=== PATIENT | male | born 1945 | race Hispanic/Latino ===

== ENCOUNTER 2018-02-08 13:12 | Inpatient (IN) | payer OTHER ==
[2018-02-08] MEDS ORDERED: GLUCAGON 1 MG/VIAL IM PRN (14:16)
[2018-02-08] MEDS ORDERED: D50W 25 GM/50 ML SYRINGE IV PRN (14:16)
[2018-02-08] MEDS ORDERED: FUROSEMIDE 40 MG/4 ML VIAL IV ONE (14:16)
[2018-02-08] MEDS ORDERED: GUAIFENESIN/DM 5 ML UCUP PO PRN (14:17)
[2018-02-08] MEDS ORDERED: ACETAMINOPHEN 500 MG TAB PO PRN (14:17)
[2018-02-08 14:33] LABS: Urine Appearance CLEAR; Urine Bilirubin NEGATIVE (NEG); Urine Blood NEGATIVE (NEG); Urine Color YELLOW; Urine Glucose TRACE (NEG); Urine Protein TRACE (NEG); Urine Specific Gravity 1.015 (1.005-1.030); Urine pH 5.5 (5.0-7.0)
[2018-02-08 14:37] LABS: Urine Microscopic Reflex ORDER UMIC
[2018-02-08 14:50] LABS: Urine Amorphous Sediment 1+ /HPF (NONE SEEN); Urine Bacteria NONE SEEN /HPF (NONE SEEN); Urine Culture Reflex Order NOT NEEDED; Urine RBC NONE SEEN /HPF (NONE SEEN)
[2018-02-08 15:08] LABS: Urine Appearance CLEAR; Urine Bilirubin NEGATIVE (NEG); Urine Blood NEGATIVE (NEG); Urine Color YELLOW; Urine Glucose TRACE (NEG); Urine Protein TRACE (NEG); Urine Specific Gravity 1.015 (1.005-1.030); Urine pH 5.5 (5.0-7.0)
--- NOTE | 2018-02-08 15:08 | RAD REPORT ---
EXAM DESCRIPTION: RAD - Chest Pa And Lat (2 Views) - 02/08/2018 2:53 pm CLINICAL HISTORY: CHF, pneumonia COMPARISON: Chest exam October 02, 2017; CT chest September 2017 TECHNIQUE: PA and lateral views of the chest were obtained. FINDINGS: The lungs are normal volume. Patient has a pronounced cardiomegaly, increased over the dory or study. Upper lobe vasculature is still within normal limits. Sternotomy wires are in place with mi dline trachea. Patient has a baseline of chronic interstitial lung disease. Interstitial and alveolar opacities are scattered throughout much of the right lung field. This is new or more pronounced than prior imaging. Pneumonia is favored over asymmetric CHF. No pleural effusion or pneumothorax seen. No acute bony finding noted. No aortic abnormality. IMPRESSION: Patchy pneumonia changes in the right mid and upper lung field. Prominent cardiomegaly, increased over October 2017. No vascular engorgement or other findings of si gnificant failure.
[2018-02-08 15:30] LABS: Urine Microscopic Reflex ORDER UMIC
[2018-02-08 15:32] LABS: Urine Bacteria NONE SEEN /HPF (NONE SEEN); Urine Culture Reflex Order NOT NEEDED; Urine RBC <5 /HPF (NONE SEEN)
[2018-02-08 16:10] LABS: Absolute Monocytes 0.5 K/uL (0.1-1.3); Absolute Neutrophil 6.1 K/uL (1.8-8.0); Basophils % 0.3 % (0-1.3); Hematocrit 33.3 % (39.6-49.0); Lymphocytes % 12.5 % (15.3-44.8); MCH 30.7 pg (27.0-35.0); MCV 90.1 fL (80-100); MPV 10.1 fL (7.6-11.3); Monocytes % 6.3 % (3.3-12.3); RBC Red Blood Cell Count 3.69 M/uL (4.33-5.43)
[2018-02-08] MEDS: ALBUTEROL 2.5 MG/3 ML NEB SOL NEB SCH ×2 (16:22→19:39)
[2018-02-08 16:25] LABS: Potassium 3.8 mEq/L (3.6-5.0)
[2018-02-08 16:29] LABS: Albumin 3.2 g/dL (3.2-5.5); Bilirubin Total 0.8 mg/dL (0.3-1.2); Magnesium 1.8 mg/dL (1.8-2.5); Protein, Total 6.8 g/dL (6.0-8.3)
[2018-02-08] MEDS: INSULIN -REGULAR HUMAN 50 UNIT/0.5 ML ML SQ SCH ×2 (16:30→21:00)
--- NOTE | 2018-02-08 16:33 | ECHO ---
HEIGHT: 5 ft 10 in WEIGHT: 233 lb 0 oz DATE OF STUDY: 02/08/[address]: Emilio Thayer MD 2-DIMENSIONAL: YES M.MODE: YES DOPPLER: YES COLOR FLOW: YES TDS: PORTABLE: DEFINITY: BUBBLE STUDY: DIAGNOSIS: CONGESTIVE HEART FAILURE CARDIAC HISTORY: CATHERIZATION: YES SURGERY: YES PROSTHETIC VALVE: NO PACEMAKER: NO MEASUREMENTS (cm) DIASTOLIC (NORMALS) SYSTOLIC (NORMALS) IVSd 1.1 (0.6-1.2) LA Diam 4.7 (1.9-4.0) LVEF 29% LVIDd 5.1 (3.5-5.7) LVIDs 4.4 (2.0-3.5) %FS 14% LVPWd 1.2 (0.6-1.2) Ao Diam 3.2 (2.0-3.7) 2 DIMENSIONAL ASSESSMENT: RIGHT ATRIUM: NORMAL LEFT ATRIUM: DILATED RIGHT VENTRICLE: NORMAL LEFT VENTRICLE: DILATED TRICUSPID VALVE: NORMAL MITRAL VALVE: NORMAL PULMONIC VALVE: NORMAL AORTIC VALVE: NORMAL PERICARDIAL EFFUSION: NONE AORTIC ROOT: NORMAL LEFT VENTRICULAR WALL MOTION: GLOBAL HYPOKINESIS DOPPLER/COLOR FLOW: IMPAIRED LEFT VENTRICULAR RELAXATION COMMENTS: DILATED LEFT ATRIUM AND LEFT VENTRICLE WITH SEVERELY DEPRESSED LEFT VENTRICULAR EJECTION FRACTION. IMPAIRED LEFT VENTRICULAR RELAXATION. TECHNOLOGIST: ESTRADA STODDARD
[2018-02-08 16:42] LABS: A1c Component 0.78 mg/dL; Hemoglobin A1c 8.2 % (4-6.0)
[2018-02-08 17:03] LABS: Thyroid Stimulating Hormone 2.04 uIU/mL (0.34-5.60)
[2018-02-08] MEDS: PIPER/TAZO/NS 3.375gm 3.375 GM/100 ML BAG IVPB SCH (17:19)
[2018-02-08] MEDS: ENOXAPARIN 30 MG/0.3 ML SQ SCH (17:19)
--- NOTE | 2018-02-08 20:17 | EKG ---
Test Date: 2018-02-08 Test Time: 17:22:44 First Aid Instructor: JOANIE MEASUREMENT RESULTS: Intervals: Rate: 84 AL: 158 QRSD: 98 QT: 344 QTc: 406 Moore: P: 70 AL: 158 QRS: 3 T: -35 INTERPRETIVE STATEMENTS: Sinus rhythm with premature atrial complexes Low voltage QRS Nonspecific T wave abnormality Anterior infarct Abnormal ECG Compared to ECG 09/29/2017 15:19:10 Atrial premature complex(es) now present T-wave abnormality now present Prolonged QT interval no longer present Electronically Signed On 02-08-18 20:17:01 CDT by Elkin Devi
[2018-02-08] MEDS: ASPIRIN 81 MG CHEWABLE TABLET PO SCH (20:25)
[2018-02-08] MEDS: MAGNESIUM OXIDE 400 MG TAB PO SCH (20:26)
[2018-02-08] MEDS: GABAPENTIN 100 MG CAP PO SCH (20:26)
[2018-02-08] MEDS: SACUBITRIL/VALSARTAN 24/26 MG TAB PO SCH (20:27)
[2018-02-08] MEDS: FUROSEMIDE 40 MG TABLET PO SCH (20:27)
[2018-02-08] MEDS: METOPROLOL TAR 25 MG TAB PO SCH (20:28)
[2018-02-08] MEDS ORDERED: MAGNESIUM SULFATE 1 gm IVPB 1 GM/100 ML BAG IV ONE (21:00)
[2018-02-08] MEDS ORDERED: POTASSIUM CL SA 10 MEQ TAB PO ONE (21:00)
--- NOTE | 2018-02-08 21:29 | CON ---
Chief Complaint: Dyspnea. Reason For Cardiology Consult: CAD and congestive heart failure. History Of Present Illness: Mr. Carlson is a gentleman, who has had bypass surgery remotely. More recently, he has had a stent put in his LAD artery. Later, the stent totally closed. At his last h eart catheterization, I had the impression that he would never be able to undergo another cardiac cat h again. The nature of his CAD was too diffuse and severe and microvascular. His last cardiac cath was in September 2017. He has underlying diabetes, hypertension, obesity, history of smoking, dyslipi demia. He no longer smokes. He has mild renal insufficiency. Allergies: HE IS ALLERGIC TO CHOCOLATE FLAVORINGS, PEACHES, AND TOMATOES. NO MEDICINES. Outpatient Medications: Aspirin 81, fish oil, Lipitor, gabapentin, metoprolol, vitamin D3, spironola ctone, magnesium oxide, furosemide, Entresto, insulin, several different forms of sliding scales. Physical Examination: Vital Signs: 5 feet 10 inches, 233 pounds. HEENT: Normal. Lungs: Clear. Heart: Reveals regular rate and rhythm. There is a 1/6 to 2/6 holosystolic murmur. There is an S3 gallop. Abdomen: Soft. Extremities: Mild edema. Skin: Atrophic, poorly perfused. No ulcers are seen. Distal pulses are absent. Diagnostic Data: An electrocardiogram has not been done. An echocardiogram reveals his ejection fra ction is in the 20s. There is global hypokinesis. Impression: Mr. Carlson seems to have pneumonia on his chest x-ray. There are patchy infiltrates. He has had a white blood cell count elevation, fevers, and chills at home. Dr. Thayer is treating hi m with piperacillin and tazobactam. I think we should continue his Entresto, Lipitor, and other outp atient medications. I do not have any specific plans for Mr. Carlson to revamp all of his medicati ons. In the past, we had discussed about him getting a defibrillator. With his ejection fraction co nsistently being very low, he has a has met all the criteria, so we will talk about it again. In the past, he has not been willing to have a defibrillator implant. Thank you very much for your kind referral of Mr. Carlson. I will follow him with you. CARMITA/BRII Voice ID: [id number] Report ID: [id number]
[2018-02-09] MEDS: PIPER/TAZO/NS 3.375gm 3.375 GM/100 ML BAG IVPB SCH ×3 (01:03→17:50)
[2018-02-09] MEDS: ALBUTEROL 2.5 MG/3 ML NEB SOL NEB SCH ×4 (01:44→19:53)
[2018-02-09 05:15] LABS: Magnesium 1.9 mg/dL (1.8-2.5); Potassium 4.4 mEq/L (3.6-5.0)
--- NOTE | 2018-02-09 07:19 | HP ---
Date of Admission: 02/08/2018 Chief Complaint: Shortness of breath. History Of Present Illness: A 72-year-old male patient, who came into office today with his daughter complaining of shortness of breath, fever, and cough. The patient was concerned about having pneumo lucie as he had pneumonia in the past. He also has congestive heart failure, says he takes his medicat ion regularly, uses home oxygen almost all the time, but as of last 2 days, he got sick with this fev er and sweating. Denies any expectoration. Having shortness of breath with any day-to-day activitie s, using oxygen helps his shortness of breath. Denies any vomiting or diarrhea. No paroxysmal noctu rnal dyspnea or orthopnea. He does not drink more than 24 ounces of water in 24 hours and does not d rink any other liquids besides water. After he was evaluated, decision was made to admit him to the hospital from the office. Allergies: NO KNOWN ALLERGIES. Medications: Aspirin 81 mg 2 tablets p.o. daily, atorvastatin 20 mg daily, Entresto 1 tablet 2 times a day and I believe it is 49 mg/51 mg, furosemide 40 mg 1 tablet 2 times a day, gabapentin 100 mg tw ice a day, Humulin R U-500, takes 70 units 2 times a day, this is being managed by Dr. Tierney, magne sium oxide 400 mg 2 times a day, metoprolol 50 mg 2 times a day, pantoprazole 40 mg daily, spironolac tone 25 mg daily, and vitamin D3 1000 units p.o. 2 times a day. Review of Systems: Respiratory: As mentioned above. Constitutional: As mentioned above. All other systems reviewed and negative. Past Medical History: Mixed hyperlipidemia, type 2 diabetes mellitus, coronary artery disease, hyper tension, chronic systolic congestive heart failure, hypomagnesemia, and anemia in chronic kidney dise ase. Past Surgical History: Cataract surgery in 2012, left leg surgery, cholecystectomy November 2016, cor onary artery angioplasty with stent placement May 21, 2015, and coronary artery bypass surgery in past. Family History: Significant for diabetes, myocardial infarction, and hypertension. Social History: Prior history of smoking, not at present time. Use of alcohol negative. Physical Examination: Vital Signs: When he came into office, weight 235 pounds, blood pressure 128/60, pulse 87, respirato ry rate 18, temperature 98.2, and pulse ox 92% on room air. General: Awake, alert, oriented, not in distress. HEENT: Head atraumatic, normocephalic. Conjunctivae nonerythematous. Sclerae white. Mouth, no thr ush or edema noted. Ears/Nose, no mass, lesion, discharge noted. Neck: Supple. No JVD, lymph nodes, bruit, thyromegaly noted. Lungs: Bilateral rales noted in both lung lawrence in lower half to lower two-third, not using any acc essory muscles of respiration. Heart: Normal heart sounds, no murmur or gallop. Abdomen: Soft, bowel sounds normal. No guarding, rigidity, tenderness, mass, hepatosplenomegaly, dis tention, or bruit noted. Extremities: Bilateral grade 2 pedal edema. Skin: No rash, ulcer, cellulitis. Lymphatics: No lymph node enlargement in neck, supraclavicular, infraclavicular region. Neuro: No focal neurological deficit. Chest: Unremarkable. External Genitalia: Deferred. Rectal: Deferred. Laboratory Data: White count 7.6, hemoglobin 11.4, platelets 220, sodium 136, potassium 3.8, chlorid e 102, bicarb 28, BUN 21, creatinine 1.29, glucose 120, hemoglobin A1c 8.2, and magnesium 1.8. Liver function tests are unremarkable. BNP 668. Procalcitonin less than 0.05. TSH 2.04. Urinalysis neg ative. Diagnostic Data: Echocardiogram shows ejection fraction 29%. Chest x-ray, the chest x-ray shows pat shreya pneumonia changes in the right mid and upper lung lawrence. Cardiomegaly. Impression: 1.Pneumonia. 2.Congestive heart failure, chronic, systolic, with acute exacerbation. 3.Chronic kidney disease, stage 3. 4.Coronary artery disease. 5.Diabetes mellitus, type 2, uncontrolled. 6.Hypertension. 7.Mixed hyperlipidemia. 8.Anemia, unspecified. 9.Hypomagnesemia. 10.Anemia in chronic kidney disease. Plan: Admit the patient to hospital for further evaluation and management of this problem. The maryanne ent is appropriate for inpatient and is expected to spend 2 midnights in the hospital. We will go ah ead and consult Cardiology. Continue home medications per order. Diabetes will be managed with slid ing scale insulin. We will go ahead and start empiric antibiotic, which is Zosyn. IV Lasix will be started. DVT prophylaxis will be given using Lovenox, and I will see him tomorrow morning for follow up. Details and plan of treatment discussed with the patient. The patient had a cardiac cath done d uring last hospital admission, September 2017 and at that time, the patient was noted to have signific ant coronary artery disease and environmental department manager had recommended medical management as the patient was de termined not a candidate for any kind of vascular intervention. We will see him tomorrow for followu leelee REICH/BRII Voice ID: [id number]
[2018-02-09] MEDS: INSULIN -REGULAR HUMAN 50 UNIT/0.5 ML ML SQ SCH ×4 (07:30→21:00)
[2018-02-09] MEDS ORDERED: FUROSEMIDE 40 MG/4 ML VIAL IV SCH (09:00)
[2018-02-09] MEDS: SACUBITRIL/VALSARTAN 24/26 MG TAB PO SCH ×2 (09:00→20:25)
[2018-02-09] MEDS: GABAPENTIN 100 MG CAP PO SCH ×2 (10:29→20:24)
[2018-02-09] MEDS: MAGNESIUM OXIDE 400 MG TAB PO SCH ×2 (10:30→20:26)
[2018-02-09] MEDS: SPIRONOLACTONE 25 MG TABLET PO SCH (10:30)
[2018-02-09] MEDS: ASPIRIN 81 MG CHEWABLE TABLET PO SCH ×2 (10:30→20:25)
[2018-02-09] MEDS: METOPROLOL TAR 25 MG TAB PO SCH ×2 (10:30→20:25)
[2018-02-09] MEDS: FUROSEMIDE 40 MG TABLET PO SCH ×2 (10:30→20:24)
[2018-02-09] MEDS ORDERED: NA CHLORIDE 0.9% 250 ML ONE (10:34)
[2018-02-09] MEDS: ENOXAPARIN 30 MG/0.3 ML SQ SCH (17:50)
[2018-02-09] MEDS ORDERED: D50W 25 GM/50 ML SYRINGE IV PRN (18:51)
[2018-02-09] MEDS ORDERED: GLUCAGON 1 MG/VIAL IM PRN (18:51)
[2018-02-09] MEDS ORDERED: INSULIN DETEMIR 100 UNIT/1 ML INSULIN SQ SCH (21:00)
[2018-02-10] MEDS: PIPER/TAZO/NS 3.375gm 3.375 GM/100 ML BAG IVPB SCH ×3 (00:26→16:18)
--- NOTE | 2018-02-10 00:32 | PN ---
Date of Progress Note: 02/09/2018 Subjective: The patient was seen this morning for followup. He is feeling somewhat better this morn ing compared to yesterday. Objective: Vital Signs: Reviewed. HEENT: Examination unremarkable. Lungs: Bilateral good equal air entry. Presence of rales in both lung lawrence but better today than yesterday. Not using accessory muscles of respiration. Heart: Sounds normal. Abdomen: Soft. Bowel sounds normal. No guarding, rigidity, tenderness, or distention. Extremities: Bilateral leg edema unchanged from yesterday. Laboratory Data: Sodium 137, potassium 4.4, chloride 102, bicarb 29. BUN 24, creatinine 1.73. Gluc ose 123, magnesium 1.9. Impression: 1.Pneumonia. 2.Congestive heart failure, chronic, systolic, with acute exacerbation. 3.Coronary artery disease. 4.Chronic kidney disease stage 3. 5.Diabetes mellitus. Plan: We will continue current medications. Continue Lasix, Entresto, spironolactone, Zosyn. Ruth nue to monitor electrolytes and renal function. Ambulation was encouraged. I will see him tomorrow for followup. We will repeat chest x-ray tomorrow. I did discuss details with Dr. Devi, and consi dering the patient's low ejection fraction, he will refer the patient to Dr. Mckeon, electrophysiologi , on outpatient basis for consideration of AICD placement. I will see him tomorrow for followup. RACHANA/MODL Voice ID: [id number] Report ID: [id number]
[2018-02-10] MEDS: ALBUTEROL 2.5 MG/3 ML NEB SOL NEB SCH ×4 (01:05→19:58)
--- NOTE | 2018-02-10 02:21 | PN ---
Date of Progress Note: 02/09/2018 Mr. Carlson was admitted by Dr. Thayer for pneumonia. He was noted on echocardiography to have an ej ection of 20%, which is much worse for him than the past. September 2017 heart catheterization showed severe diffuse distal disease. No intervention. Not a good candidate for another catheterization, but may be a good candidate for defibrillator if he maintains that ejection fraction. I am hoping th at once his pneumonia is cleared, maybe his EF will improve. He can certainly go home whenever it is okay with Dr. Thayer, but I would like to see him in the office in the next 2 weeks. I will repeat ec hos eventually and see what we can do as far as the defibrillator is concerned. JODI/BRII Voice ID: [id number] Report ID: [id number]
[2018-02-10] MEDS: INSULIN -REGULAR HUMAN 50 UNIT/0.5 ML ML SQ SCH ×4 (07:30→20:57)
[2018-02-10] MEDS: SPIRONOLACTONE 25 MG TABLET PO SCH (08:49)
[2018-02-10] MEDS: METOPROLOL TAR 25 MG TAB PO SCH ×2 (08:50→20:55)
[2018-02-10] MEDS: FUROSEMIDE 40 MG TABLET PO SCH ×2 (08:50→20:55)
[2018-02-10] MEDS: ASPIRIN 81 MG CHEWABLE TABLET PO SCH ×2 (08:50→20:54)
[2018-02-10] MEDS: SACUBITRIL/VALSARTAN 24/26 MG TAB PO SCH ×2 (08:50→20:56)
[2018-02-10] MEDS: GABAPENTIN 100 MG CAP PO SCH ×2 (08:51→20:55)
[2018-02-10] MEDS: MAGNESIUM OXIDE 400 MG TAB PO SCH ×2 (08:51→20:54)
--- NOTE | 2018-02-10 10:18 | RAD REPORT ---
EXAM DESCRIPTION: RAD - Chest Pa And Lat (2 Views) - 02/10/2018 9:26 am CLINICAL HISTORY: Pneumonia, CHF. COMPARISON: 02/08/2018 FINDINGS: Little overall change is seen in the reticular opacities in the right lung most likely rep resenting atypical pneumonia. The heart is moderately enlarged in size. No displaced fractures. Amos otomy wires present. IMPRESSION: Stable chest since 02/08/2018.
[2018-02-10] MEDS: ENOXAPARIN 30 MG/0.3 ML SQ SCH (16:18)
[2018-02-11] MEDS: PIPER/TAZO/NS 3.375gm 3.375 GM/100 ML BAG IVPB SCH ×3 (00:37→16:46)
--- NOTE | 2018-02-11 01:22 | PN ---
Date of Progress Note: 02/10/2018 Subjective: The patient was seen this morning for followup. He was sitting at bedside. His enae r was present with him at bedside. Denied any complaints. He ambulates well in the room. Objective: Vital Signs: Reviewed. HEENT: Examination unremarkable. Lungs: Bilateral good equal air entry. Not in any respiratory distress. Presence of minimum rales in both lung lawrence. Overall much better than before. Heart: Sounds normal. Abdomen: Bowel sounds normal. No guarding, rigidity, tenderness, or distention. Extremities: Bilateral leg edema, better than yesterday and day before yesterday. Laboratory Data: Reviewed. Impression: 1.Congestive heart failure, chronic, systolic, with acute exacerbation. 2.Coronary artery disease. 3.Hypertension. 4.Diabetes mellitus. 5.Chronic kidney disease stage 3. 6.Pneumonia. Plan: We will go ahead and continue current antibiotics. Continue Lasix and other current managemen t for congestive heart failure problem. We will repeat chest x-ray today. I did inform the patient and patient's daughter both that I am not 100% convinced that he has pneumonia but we cannot afford n ot to treat him for pneumonia with antibiotics, given his condition and situation, so we are going to continue antibiotics at this point. It is possible that what we see on chest x-ray, could be all du e to congestive heart failure, but in any case, we will continue antibiotics right now and starting t omorrow, consider to change it to oral antibiotics, depending on the chest x-ray result. I also talk ed to both of them about AICD placement. Upon discharge from the hospital, the patient will follow u p with welt rander, and welt rander will refer him to [place] for consideration of AICD placement. All these details were discussed with the patient and the patient's daughter. They were also made a garvey of echocardiogram finding with worsening ejection fraction. I will see him tomorrow for followu p. Depending on his condition, we will decide whether he is ready for discharge by tomorrow or not. RACHANA/MODL Voice ID: [id number] Report ID: [id number]
[2018-02-11] MEDS: ALBUTEROL 2.5 MG/3 ML NEB SOL NEB SCH ×4 (01:34→19:18)
[2018-02-11 05:52] VITALS: BMI 32.5
[2018-02-11] MEDS: INSULIN -REGULAR HUMAN 50 UNIT/0.5 ML ML SQ SCH ×4 (07:30→21:00)
[2018-02-11 07:31] LABS: Absolute Lymphocytes (CBC) 0.7 K/uL (0.7-4.9); Absolute Monocytes 0.4 K/uL (0.1-1.3); Absolute Neutrophil 5.1 K/uL (1.8-8.0); Basophils % 0.4 % (0-1.3); Eosinophils % 3.9 % (0-4.4); Hematocrit 35.2 % (39.6-49.0); Lymphocytes % 11.2 % (15.3-44.8); MCH 30.7 pg (27.0-35.0); MCV 90.1 fL (80-100); MPV 9.7 fL (7.6-11.3); RBC Red Blood Cell Count 3.91 M/uL (4.33-5.43)
[2018-02-11 07:42] LABS: Potassium 4.4 mEq/L (3.6-5.0)
[2018-02-11 07:43] LABS: Magnesium 2.1 mg/dL (1.8-2.5)
[2018-02-11] MEDS: MAGNESIUM OXIDE 400 MG TAB PO SCH ×2 (08:32→21:09)
[2018-02-11] MEDS: GABAPENTIN 100 MG CAP PO SCH ×2 (08:32→21:09)
[2018-02-11] MEDS: ASPIRIN 81 MG CHEWABLE TABLET PO SCH ×2 (08:32→21:11)
[2018-02-11] MEDS: SPIRONOLACTONE 25 MG TABLET PO SCH (08:33)
[2018-02-11] MEDS: SACUBITRIL/VALSARTAN 24/26 MG TAB PO SCH ×2 (08:33→21:13)
[2018-02-11] MEDS: FUROSEMIDE 40 MG TABLET PO SCH ×2 (08:34→21:10)
[2018-02-11] MEDS: METOPROLOL TAR 25 MG TAB PO SCH ×2 (08:34→21:09)
[2018-02-11] MEDS: Levofloxacin500mg IV 500 MG/100 ML BAG IV SCH (08:34)
[2018-02-11] MEDS: ENOXAPARIN 30 MG/0.3 ML SQ SCH (16:47)
[2018-02-12] MEDS: PIPER/TAZO/NS 3.375gm 3.375 GM/100 ML BAG IVPB SCH ×3 (00:42→11:00)
[2018-02-12] MEDS: ALBUTEROL 2.5 MG/3 ML NEB SOL NEB SCH ×3 (01:05→13:23)
--- NOTE | 2018-02-12 01:50 | PN ---
Date of Progress Note: 02/11/2018 Subjective: The patient was seen this morning for followup. He was sitting at bedside. The patient 's daughter was present with him at bedside. He denies any complaints. Objective: Vital Signs: Reviewed. HEENT: Unremarkable. Lungs: Bilateral good equal air entry. Minimum rales noted in right lung lawrence, overall much corky r than before. Not in any respiratory distress. Heart: Sounds normal. Abdomen: Soft, bowel sounds normal. No guarding, rigidity, tenderness, or distention. Extremities: Bilateral trace leg edema. Overall much better than before. Laboratory Data: Reviewed. Impression: 1.Pneumonia. 2.Congestive heart failure, chronic, systolic, with acute exacerbation. 3.Chronic kidney disease, stage 3. 4.Hypertension. 5.Diabetes mellitus. Plan: Continue current medications. We will add antibiotic Levaquin and continue Zosyn. Continue I V Lasix. Continue Entresto. I will see him tomorrow for followup. Possible discharge to go home to [place] depending on patient's condition. Details and plan of treatment discussed with him. RACHANA/MODL Voice ID: [id number] Report ID: [id number]
[2018-02-12] MEDS: INSULIN -REGULAR HUMAN 50 UNIT/0.5 ML ML SQ SCH ×2 (07:30→11:30)
[2018-02-12] MEDS: Levofloxacin500mg IV 500 MG/100 ML BAG IV SCH ×2 (08:00→11:00)
[2018-02-12 08:18] VITALS: O2SAT 98
[2018-02-12] MEDS: SPIRONOLACTONE 25 MG TABLET PO SCH (09:00)
[2018-02-12] MEDS: FUROSEMIDE 40 MG TABLET PO SCH (09:00)
[2018-02-12] MEDS: METOPROLOL TAR 25 MG TAB PO SCH (09:00)
[2018-02-12] MEDS: MAGNESIUM OXIDE 400 MG TAB PO SCH (10:19)
[2018-02-12] MEDS: ASPIRIN 81 MG CHEWABLE TABLET PO SCH (10:19)
[2018-02-12] MEDS: SACUBITRIL/VALSARTAN 24/26 MG TAB PO SCH (10:19)
[2018-02-12] MEDS: GABAPENTIN 100 MG CAP PO SCH (10:20)
[2018-02-12] MEDS ORDERED: RIVAROXABAN 15 MG TABLET PO ONE (11:47)
[2018-02-12 12:16] VITALS: BP 114/57; TEMP 98.6
--- NOTE | 2018-02-13 04:56 | DS ---
Date of Discharge: 02/12/2018 Disposition: Discharged to go home physical. Physical Examination: HEENT: Examination unremarkable. Lungs: Clear to auscultation. No rhonchi. No rales. Heart: Sounds normal. Abdomen: Soft, bowel sounds normal. No guarding, rigidity, tenderness, or distention. Extremity: Very trace leg edema. Laboratory Data: White count upon admission was 7.6, hemoglobin 11.4, platelets 220. Last white count yesterday 6.6, hemoglobin 12, platelets 269. Last chemistry yesterday; sodium 135, potassium 4.4, chloride 97, bicarb 29. BUN 25, creatinine 1.51. Glucose 98, magnesium 2.1. Upon admission, sodium 136, potassium 3.8, chloride 102, bicarb 28. BUN 21, creatinine 1.29, glucose 120. Liver function tests unremarkable. Hemoglobin A1c 8.2. TSH 2.04. His procalcitonin less than 0.05 on admission. Yesterday, it was 0.06. Echocardiogram done during this hospitalization shows ejection fraction 29%. Chest x-ray showing pneumonia. Hospital Course: A 72-year-old male patient, who came into office with complaints of shortness of breath. Please see dictated H and P for more information. The patient was evaluated at the office, was admitted to the hospital with concerns about pneumonia and congestive heart failure problem. He was given antibiotics Zosyn, IV Lasix. Cardiology consultation was obtained. Echocardiogram shows low ejection fraction, in fact it is worse compared to what it was in August 2017. He responded well to diuretic therapy which was Lasix and his symptoms improved. He does have home oxygen that he uses. I have advised him to use oxygen definitely at nighttime and p.r.n. during daytime. He has a pulse oximeter at home. He monitors and he was advised to continue to monitor it and he was told that if during daytime, his oxygen saturation is in the low 90s like 91-92% or low, he should definitely use oxygen even though he may be feeling okay at that time. He should definitely use oxygen at nighttime. The patient might be appropriate candidate for AICD placement and Dr. Devi and Dr. Licea, legal associate, they will refer him to Dr. Mckeon on outpatient basis for further evaluation and management of this AICD placement. His repeat chest x-ray from day before yesterday did not show any significant improvement in the pneumonia, so we decided to add Levaquin 500 mg IV daily. He has received that. We will continue Levaquin upon discharge. Symptomatically, he is doing much better. He is ambulating well. Shortness of breath has improved. Today, prior to discharge, he actually had a short episode of atrial fibrillation. He was asymptomatic, hemodynamically stable. Details were discussed with Dr. Licea, and per my discussion with him, we will start him on Xarelto 15 mg p.o. daily. First dose will be given today before discharge and prescription will be called in by nursing staff per my request, and patient will see Dr. Licea next week on Thursday at 1 p.m. and he will see me the week after next for a followup. Discharge Medications: 1. Continue all prior home medications except change furosemide 40 mg take 2 tablets by mouth in the morning, 1 tablet by mouth in the afternoon. 2. Take levofloxacin 500 mg p.o. daily for 10 days. 3. Xarelto 15 mg p.o. daily. Discharge Plan: The patient and patient's daughter both were told about overall prognosis is poor and details about congestive heart failure with low ejection fraction, his chronic kidney disease, and reason for worsening of chronic kidney disease, due congestive heart failure as well as diuretic medication. All those details were discussed with her. The patient was also told that if his leg swelling or shortness of breath problems get any worse, then he should increase the dose of diuretic medication furosemide 40 mg to take 2 tablets in the morning and 2 tablets in the afternoon, and he verbalized understanding. Discharge Diagnoses: 1. Pneumonia. 2. Congestive heart failure, chronic, systolic, with acute exacerbation. 3. Chronic kidney disease, stage 3. 4. Coronary artery disease. 5. Diabetes mellitus, type 2, uncontrolled. 6. Hypertension. 7. Mixed hyperlipidemia. 8. Atrial fibrillation, paroxysmal. 9. Hypomagnesemia. 10. Anemia in chronic kidney disease. RACHANA/MODL Voice ID: [id number] Report ID: [id number]
--- NOTE | 2018-02-13 11:48 | PN ---
Subjective: Mr. Rosa had been in the hospital for pneumonia. Ejection fraction had worsened to 30- 35%. Has coronary artery disease with recent catheterization showing no significant restenosis of hi s previous vascular procedures. He was being discharged today, but had an atrial fibrillation episod e of about 130-140. The patient is on anticoagulants, beta blockers, and Entresto. He will continue those. Come to see me in the office in the next 2-3 days. We need to consider a defibrillator for him, may be amiodarone therapy. I will discuss the case further with him and his family, and may hav e to send him to electrophysiology in [place] for appointment. JODI/BRII Voice ID: [id number] Report ID: [id number]
[2018-02-16] MEDS ORDERED: ALBUTEROL 2.5 MG/3 ML NEB SOL ONE (20:14)
[2018-02-16] MEDS ORDERED: IPRATROPIUM BROM 0.5MG/2.5ML ONE (20:14)
[2018-02-17] MEDS ORDERED: ALBUTEROL 2.5 MG/3 ML NEB SOL ONE (20:10)
== END 2018-02-12 15:18 | disposition home or self-care (01) | DRG 291 ==
LOC: 2ND 13:57
PROVIDERS: ADMIT Internal Medicine; ATTEND Internal Medicine
DX: I13.0 Hypertensive heart and chronic kidney disease with heart failure and stage 1 through stage 4 chronic kidney disease, or unspecified chronic kidney disease (principal); J18.9 Pneumonia, unspecified organism; I50.23 Acute on chronic systolic (congestive) heart failure; N18.3 Chronic kidney disease, stage 3 (moderate); E11.22 Type 2 diabetes mellitus with diabetic chronic kidney disease; E11.65 Type 2 diabetes mellitus with hyperglycemia; I25.10 Atherosclerotic heart disease of native coronary artery without angina pectoris; E78.2 Mixed hyperlipidemia; I48.0 Paroxysmal atrial fibrillation; E83.42 Hypomagnesemia; D63.1 Anemia in chronic kidney disease
CPT/HCPCS: 36415; 71046; 80048; 80053; 81003; 81015; 82962; 83036; 83735; 83880; 84145; 84443; 85025; 93005; 93306; 94640; J1650; J2543

== ENCOUNTER 2018-02-16 16:33 | Inpatient (IN) | payer OTHER ==
[2018-02-16 18:41] VITALS: BMI 32.9
[2018-02-16] MEDS ORDERED: D50W 25 GM/50 ML SYRINGE IV PRN (19:35)
[2018-02-16] MEDS ORDERED: GLUCAGON 1 MG/VIAL IM PRN (19:35)
[2018-02-16] MEDS ORDERED: NA CHLORIDE 0.9% 1,000 ML IV SCH (20:00)
[2018-02-16] MEDS: ALBUTEROL 2.5 MG/3 ML NEB SOL NEB SCH (20:00)
[2018-02-16 20:11] LABS: Potassium 4.7 mEq/L (3.6-5.0)
[2018-02-16 20:15] LABS: Albumin 3.4 g/dL (3.2-5.5); Bilirubin Total 0.9 mg/dL (0.3-1.2); Magnesium 2.2 mg/dL (1.8-2.5); Protein, Total 7.3 g/dL (6.0-8.3)
[2018-02-16 20:21] LABS: Absolute Lymphocytes (CBC) 0.7 K/uL (0.7-4.9); Absolute Monocytes 0.4 K/uL (0.1-1.3); Absolute Neutrophil 6.7 K/uL (1.8-8.0); Basophils % 0.2 % (0-1.3); Eosinophils % 0.1 % (0-4.4); Hematocrit 35.8 % (39.6-49.0); Lymphocytes % 8.8 % (15.3-44.8); MCH 30.8 pg (27.0-35.0); MCV 90.8 fL (80-100); MPV 9.7 fL (7.6-11.3); Monocytes % 5.5 % (3.3-12.3); RBC Red Blood Cell Count 3.95 M/uL (4.33-5.43)
--- NOTE | 2018-02-16 20:22 | RAD REPORT ---
EXAM DESCRIPTION: RAD - Chest Single View - 02/16/2018 8:14 pm CLINICAL HISTORY: Pneumonia COMPARISON: 02/10/2018 FINDINGS: Portable technique limits examination quality. Since the prior study, the majority of the interstitial lung opacities appear to have resolved or sig nificantly improved. The heart is moderately enlarged in size. No displaced fractures.Sternotomy wire s noted. IMPRESSION: Signal improvement in lung aeration since comparative study.
[2018-02-16] MEDS: Levofloxacin500mg IV 500 MG/100 ML BAG IV SCH (20:59)
[2018-02-16] MEDS: INSULIN -REGULAR HUMAN 50 UNIT/0.5 ML ML SQ SCH (21:00)
[2018-02-17] MEDS: ALBUTEROL 2.5 MG/3 ML NEB SOL NEB SCH ×4 (01:41→20:32)
[2018-02-17 06:41] LABS: Urine Appearance CLEAR; Urine Bilirubin NEGATIVE (NEG); Urine Blood TRACE (NEG); Urine Color YELLOW; Urine Glucose NEGATIVE (NEG); Urine Microscopic Reflex ORDER UMIC; Urine Protein NEGATIVE (NEG); Urine Specific Gravity 1.015 (1.005-1.030); Urine Urobilinogen 0.2 mg/dL (0.2-1.0)
[2018-02-17 06:55] LABS: Urine Bacteria <20 /HPF (NONE SEEN); Urine Culture Reflex Order NOT NEEDED; Urine RBC NONE SEEN /HPF (NONE SEEN)
[2018-02-17 06:56] LABS: Calcium Oxalate Crystals- Ur FEW (NONE SEEN)
--- NOTE | 2018-02-17 07:07 | HP ---
Date of Admission: 02/16/2018 Chief Complaint: Diarrhea and feeling weak. History Of Present Illness: A 72-year-old male patient, who was recently admitted to hospital with C HF and pneumonia, was discharged last week to go home with oral antibiotics. The patient has appoint ment to see Dr. Licea tomorrow to discuss about possibility of AICD placement, but today he was bro ught into office by his daughter because he started having diarrhea as of yesterday evening. The pat rayna and multiple other family members ate outside yesterday at a [employer] restaurant and he is the on ly one who got sick with these multiple episodes of diarrhea that started as of yesterday evening and he probably had more than 10-15 times diarrhea stool. It is watery liquid stool, no blood in it. N o nausea, no vomiting. Abdomen feels little bloated. Denies any abdominal pain. He is feeling very weak and lightheaded when he stands or walks. No fall. No injury. After he was brought into [facility], he was evaluated. His blood pressure was like 80/40 at the office. Manual blood pressure checked by me 2 different times and this was in sitting position. Decision was made to admit him to the hosp ital directly with this acute gastroenteritis and volume depletion problem. Medications: List reviewed. Review of Systems: GI: As mentioned above. All other systems reviewed and negative. Allergies: NO KNOWN ALLERGIES. 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 Past Surgical History: Cataract surgery 2012, left leg surgery, cholecystectomy in November 2016, cor onary artery angioplasty with stent placement 05/29/2015, and coronary artery bypass surgery in the [facility]. Family History: Significant for diabetes, myocardial infarction, and hypertension. Social History: Prior history of smoking, not at present time. Use of alcohol negative. Physical Examination: Vital Signs: When he came into office today his vital signs included weight 223 pounds, height 70 in ches, blood pressure 80/40, pulse 70, respiratory rate 15, temperature 98.2, and oxygen saturation 99 %. General: The patient appears weaker than normal, not in any distress. HEENT: Head atraumatic, normocephalic. Conjunctivae nonerythematous. Sclerae white. Mouth, no thr ush or edema noted. Ears/Nose, no mass, lesion, discharge noted. Neck: Supple. No JVD, lymph nodes, bruit, thyromegaly noted. Lungs: Bilateral good equal air entry. Clear to auscultation. No rhonchi. No rales. Heart: Normal heart sounds, no murmur or gallop. Abdomen: Soft, bowel sounds normal. No guarding, rigidity, tenderness, mass, hepatosplenomegaly, dis tention, or bruit noted. Extremities: No leg edema. No calf tenderness. Skin: No rash, ulcer, cellulitis. Lymphatics: No lymph node enlargement in neck, supraclavicular, infraclavicular region. Neuro: No focal neurological deficit. Chest: Unremarkable. External Genitalia: Deferred. Rectal: Deferred. Laboratory Data: Sodium 133, potassium 4.7, chloride 106, bicarb 21, BUN 57, creatinine 2.35, and gl ucose 60. Liver function tests are unremarkable. White count 7.8, hemoglobin 12.2, and platelets 25 7. Diagnostic Data: Chest x-ray shows improvement in his pneumonia. Impression: 1.Acute gastroenteritis. 2.Volume depletion. 3.Chronic kidney disease, stage III. 4.Acute kidney injury. 5.Anemia. 6.Chronic systolic congestive heart failure. 7.Coronary artery disease. 8.Diabetes mellitus. 9.Hypertension. 10.Hyperlipidemia. Plan: Admit the patient to hospital for further evaluation and management of this problem. The maryanne ent is appropriate for inpatient and is expected to spend 2 midnights in the hospital. We will go ah ead and start him on careful IV fluid hydration and monitor him closely for signs and symptoms of con gestive heart failure. If that happens, we will have to discontinue IV fluid and start appropriate t reatment for congestive heart failure at that time. We will start him on IV antibiotic, Levaquin. X arelto will be continued that he takes at home for paroxysmal atrial fibrillation. We will repeat bl ood work tomorrow. C. diff stool culture was ordered. Home medications will be continued per order. Diabetes will be managed with sliding scale insulin and I will see him tomorrow for followup. Cherry phipps on plan of treatment discussed with the patient. RACHANA/BRII Voice ID: [id number]
[2018-02-17] MEDS: INSULIN -REGULAR HUMAN 50 UNIT/0.5 ML ML SQ SCH ×4 (07:30→21:00)
[2018-02-17 08:39] LABS: Absolute Lymphocytes (CBC) 1.4 K/uL (0.7-4.9); Absolute Monocytes 0.5 K/uL (0.1-1.3); Absolute Neutrophil 3.4 K/uL (1.8-8.0); Basophils % 0.2 % (0-1.3); Eosinophils % 0.4 % (0-4.4); Hematocrit 35.6 % (39.6-49.0); Lymphocytes % 25.8 % (15.3-44.8); MCH 30.4 pg (27.0-35.0); MCV 92.3 fL (80-100); MPV 8.7 fL (7.6-11.3); Monocytes % 9.4 % (3.3-12.3); RBC Red Blood Cell Count 3.86 M/uL (4.33-5.43)
[2018-02-17] MEDS: GABAPENTIN 100 MG CAP PO SCH ×2 (08:48→21:29)
[2018-02-17] MEDS: ASPIRIN 81 MG CHEWABLE TABLET PO SCH ×2 (08:48→21:29)
[2018-02-17] MEDS: NA CHLORIDE 0.9% 1,000 ML IV SCH ×2 (08:48→21:35)
[2018-02-17 08:51] LABS: Magnesium 2.1 mg/dL (1.8-2.5)
[2018-02-17] MEDS: METOPROLOL TAR 25 MG TAB PO SCH (16:50)
[2018-02-17] MEDS ORDERED: RIVAROXABAN 15 MG TABLET PO SCH (17:00)
[2018-02-17] MEDS ORDERED: ATORVASTATIN 20 MG TAB PO SCH (17:30)
[2018-02-17] MEDS: Levofloxacin500mg IV 500 MG/100 ML BAG IV SCH (21:29)
--- NOTE | 2018-02-18 01:14 | PN ---
Date of Progress Note: 02/17/2018 Subjective: The patient was seen this morning for followup. No new complaints or problems reported by the patient. Denies any diarrhea. No nausea. No vomiting. No abdominal pain. The patient's da ughter was present with him at bedside. Objective: Vital Signs: Reviewed. HEENT: Unremarkable. Lungs: Clear to auscultation. No rhonchi. No rales. Heart: Sounds normal. Abdomen: Soft. Bowel sounds normal. No guarding, rigidity, tenderness, or distention. Extremities: No leg edema. Impression: 1.Acute gastroenteritis. 2.Volume depletion. 3.Acute kidney injury. 4.Congestive heart failure, chronic, systolic. 5.Diabetes mellitus. Plan: We will continue IV fluid, but reduce rate. Start the patient on diet. Ambulation was encour aged. Continue current antibiotics. Stool test is pending. I will see him tomorrow for followup. Depending on how he tolerates diet and how his diarrhea is, we will decide if he can possibly be disc harged to go home tomorrow or not. We will restart home medication at appropriate time. Blood press ure is still on low side but better than yesterday. RACHANA/MODL Voice ID: [id number] Report ID: [id number]
[2018-02-18] MEDS: ALBUTEROL 2.5 MG/3 ML NEB SOL NEB SCH ×2 (02:00→07:16)
[2018-02-18] MEDS: METOPROLOL TAR 25 MG TAB PO SCH (05:30)
[2018-02-18 07:27] VITALS: O2SAT 98
[2018-02-18] MEDS: INSULIN -REGULAR HUMAN 50 UNIT/0.5 ML ML SQ SCH (07:30)
[2018-02-18 08:44] VITALS: BP 118/59; TEMP 98.7
[2018-02-18] MEDS: GABAPENTIN 100 MG CAP PO SCH (08:44)
[2018-02-18] MEDS: ASPIRIN 81 MG CHEWABLE TABLET PO SCH (08:44)
--- NOTE | 2018-02-19 22:45 | DS ---
Date of Discharge: 02/18/2018 Disposition: Discharged to go home. Physical Examination: HEENT: Unremarkable. Lungs: Clear to auscultation. Heart: Sounds normal. Abdomen: Soft. Bowel sounds. No guarding, rigidity, tenderness, or distention. Extremities: No leg edema. Laboratory Data: Upon admission, white count 7.8, hemoglobin 12.2, platelets 257. Yesterday, white count 5.3, hemoglobin 11.7, platelets 282. Upon admission, sodium 133, potassium 4.7, chloride 106, bicarb 21, BUN 57, creatinine 2.35. Yesterday, BUN 55, creatinine 2.36. Sodium was 129 yesterday. Hospital Course: A 72-year-old male patient admitted to the hospital with diarrhea and feeling weak. Please see dictated H and P for more information. The patient came into office with his daughter. He was evaluated and admitted to the hospital with acute gastroenteritis, volume depletion, hypotension. Please see dictated H and P for more information. Because of his frequent diarrhea problem, he could not eat anything the day he came in to see me and was kept NPO when he first came into the hospital. IV fluid was given. IV antibiotic, Levaquin was given. Stool C. diff came back negative and yesterday we started him on diet and after he was started on diet, he has tolerated that very well. He has not had anymore diarrhea. No nausea, no vomiting, no abdominal pain. Stool culture was ordered, result is still pending. His repeat chest x-ray shows improvement in pneumonia from last admission. He had appointment to see gas inspector, Dr. Licea, yesterday and his daughter will call to reschedule this appointment for next week. I have instructed the patient and the patient's daughter that he needs to follow up at my office a week after next from discharge. He should take medications and all the instructions as suggested during last hospital discharge, which was about a week ago. Discharge Diagnoses: 1. Acute gastroenteritis. 2. Volume depletion. 3. Hyponatremia. 4. Chronic kidney disease, stage 3. 5. Acute kidney injury. 6. Anemia. 7. Congestive heart failure, chronic, systolic. 8. Coronary artery disease. 9. Diabetes mellitus. 10. Hypertension. 11. Hyperlipidemia. RACHANA/MODL Voice ID: [id number] Report ID: [id number] MTDD
== END 2018-02-18 10:54 | disposition home or self-care (01) | DRG 641 ==
LOC: 2ND 16:48
PROVIDERS: ADMIT Internal Medicine; ATTEND Internal Medicine
DX: E87.1 Hypo-osmolality and hyponatremia (principal); I50.22 Chronic systolic (congestive) heart failure; I13.0 Hypertensive heart and chronic kidney disease with heart failure and stage 1 through stage 4 chronic kidney disease, or unspecified chronic kidney disease; N17.9 Acute kidney failure, unspecified; E86.9 Volume depletion, unspecified; K52.9 Noninfective gastroenteritis and colitis, unspecified; E78.2 Mixed hyperlipidemia; E11.22 Type 2 diabetes mellitus with diabetic chronic kidney disease; N18.3 Chronic kidney disease, stage 3 (moderate); D64.9 Anemia, unspecified; I25.10 Atherosclerotic heart disease of native coronary artery without angina pectoris; I48.0 Paroxysmal atrial fibrillation; I95.9 Hypotension, unspecified
CPT/HCPCS: 36415; 71045; 80048; 80053; 81003; 81015; 82962; 83735; 85025; 87045; 87046; 87493; 94640; 97163; J7030

== ENCOUNTER 2020-01-08 15:15 | Emergency (ER) | payer OTHER ==
[2020-01-08 15:48] LABS: Absolute Lymphocytes (CBC) 0.5 K/uL (0.7-4.9); Basophils % 0.2 % (0-1.3); Lymphocytes % 6.9 % (15.3-44.8); MPV 9.2 fL (7.6-11.3)
[2020-01-08 16:06] LABS: Potassium 3.2 mmol/L (3.5-5.1)
--- NOTE | 2020-01-08 17:19 | RAD REPORT ---
EXAM DESCRIPTION: CT - Head Brain Wo Cont - 01/08/2020 5:13 pm CLINICAL HISTORY: low blood sugar Headache, drowsiness COMPARISON: No comparisons TECHNIQUE: All CT scans are performed using dose optimization technique as appropriate and may inclu de automated exposure control or mA/KV adjustment according to patient size. FINDINGS: No intracranial hemorrhage, hydrocephalus or extra-axial fluid collection.No areas of brai n edema or evidence of midline shift. The paranasal sinuses and mastoids are clear. The calvarium is intact. IMPRESSION: No acute intracranial abnormality.
--- NOTE | 2020-01-08 17:29 | EDPHYS ---
Physician Documentation [facility] Name: Moe Carlson Age: 74 yrs Sex: Male : 1945 Arrival Date: 01/08/2020 Time: 15:17 Bed 4 Private MD: ED Physician Ovi Goldberg HPI: 01/07 15:57 This 74 yrs old Male presents to ER via EMS with complaints of Low Blood Sugar.rn 15:57 The patient or guardian reports hypoglycemia, that was potentially precipitated by. rn Onset: The symptoms/episode began/occurred just prior to arrival. Current symptoms: In the emergency department the patient's symptoms have improved. The patient has experienced similar episodes in the past. Reports took his regular insulin dose this morning, only ate one egg, and didn't eat lunch, felt glucose dropping, was driving with family to restaurant, stopped at [employer] and passed out. EMS arrived, glucose low, given glucose and improved glucose and symptoms. Denies chest pain/sob/abd pain/vomiting/focal neuro complaint. family reports hit head when passed out. Now back to baseline, only complaint is that he is hungry. . Historical: - Allergies: 15:21 peach; em 15:21 chocolate flavor; em 15:21 tomato; em - PMHx: 15:21 Diabetes - IDDM; Hyperlipidemia; Hypertension; em - PSHx: 15:21 Heart stents; Heart Surgery; em - Immunization history:: Adult Immunizations up to date. - Social history:: Smoking status: Patient denies any tobacco usage or history of. - Family history:: not pertinent. - Hospitalizations: : No recent hospitalization is reported. ROS: 15:57 Constitutional: Negative for fever, chills, and weight loss, Eyes: Negative for injury, rn pain, redness, and discharge, Neck: Negative for injury, pain, and swelling, Cardiovascular: Negative for chest pain, palpitations, and edema, Respiratory: Negative for shortness of breath, cough, wheezing, and pleuritic chest pain, Abdomen/GI: Negative for abdominal pain, nausea, vomiting, diarrhea, and constipation, MS/Extremity: Negative for injury and deformity, Skin: Negative for injury, rash, and discoloration, Neuro: Negative for headache, weakness, numbness, tingling, and seizure. Exam: 15:57 Constitutional: This is a well developed, well nourished patient who is awake, alert, rn and in no acute distress. Head/Face: Normocephalic, atraumatic. Eyes: Pupils equal round and reactive to light, extra-ocular motions intact. Lids and lashes normal. Conjunctiva and sclera are non-icteric and not injected. Cornea within normal limits. Periorbital areas with no swelling, redness, or edema. ENT: Dry MM Neck: Trachea midline, no thyromegaly or masses palpated, and no cervical lymphadenopathy. Supple, full range of motion without nuchal rigidity, or vertebral point tenderness. No Meningismus. Chest/axilla: Nontender with no deformity. Cardiovascular: Regular rate and rhythm. No pulse deficits. Respiratory: No increased work of breathing, no retractions or nasal flaring. Abdomen/GI: soft, non-tender MS/ Extremity: Pulses equal, no cyanosis. Neurovascular intact. Full, normal range of motion. Equal circumference. Neuro: Awake and alert, GCS 15, oriented to person, place, time, and situation. Cranial nerves II-XII grossly intact. Motor strength 5/5 in all extremities. Sensory grossly intact. Cerebellar exam normal. 17:26 ECG was reviewed by the Attending Physician. rn Vital Signs: 15:17 BP 118 / 56; Pulse 61; Resp 18; Temp 98.1; Pulse Ox 96% on R/A; Pain 0/10; em 16:37 BP 104 / 49; Pulse 60; Resp 16; Pulse Ox 99% on R/A; Pain 0/10; em 17:44 BP 137 / 72; Pulse 59; Resp 18; Pulse Ox 99% on R/A; em MDM: 15:19 Patient medically screened. rn 17:26 Differential diagnosis: hypoglycemic episode. Data reviewed: vital signs, nurses notes, crna test result(s), EKG, radiologic studies, CT scan, and as a result, I will discharge patient. Counseling: I had a detailed discussion with the patient and/or guardian regarding: the historical points, exam findings, and any diagnostic results supporting the discharge/admit diagnosis, lab results, radiology results, the need for outpatient follow up, to return to the emergency department if symptoms worsen or persist or if there are any questions or concerns that arise at home. Response to treatment: the patient's symptoms have resolved after treatment, the patient's condition has returned to base line, the patient is now symptom free, and as a result, I will discharge patient. 17:27 ED course: Back to baseline, normal neuro exam, glucose > 100, eating, neg w/u here, rn normal ct head from fall/trauma, will dc home with instructions to eat more regularly. . 01/07 15:26 Order name: glucometer results - FOR PT WITH NO ID em 01/07 15:44 Order name: Basic Metabolic Panel; Complete Time: 16:45 EDMS 01/07 15:44 Order name: CBC with Automated Diff EDMS 01/07 16:48 Order name: Glucose, Ancillary Testing; Complete Time: 17:26 EDMS 01/07 15:19 Order name: Glucose Level; Complete Time: 15:25 rn 01/07 15:19 Order name: IV Start; Complete Time: 15:25 rn 01/07 15:19 Order name: EKG; Complete Time: 17:19 rn 01/07 15:19 Order name: EKG - Nurse/Tech; Complete Time: 15:59 rn 01/07 15:19 Order name: PO challenge; Complete Time: 15:59 rn 01/07 16:50 Order name: Head Brain Wo Cont; Complete Time: 17:26 EDMS EC:26 Rate is 63 beats/min. Rhythm is regular. QRS [place] is Normal. MS interval is normal. QRS rn interval is normal. QT interval is normal. No Q waves. T waves are Inverted in leads II, III, aVF. No ST changes noted. Clinical impression: NSR w/ Non-specific ST/T Changes. Interpreted by me. Reviewed by me. Administered Medications: No medications were administered Point of Care Testing: Blood Glucose: 15:21 Blood Glucose: 84 mg/dL; em 16:38 Blood Glucose: 126 mg/dL; em Ranges: Critical Glucose Levels:Adult <50 mg/dl or >400 mg/dl <40 mg/dl or >180 mg/dl Disposition: 01/08/20 17:28 Discharged to Home. Impression: Hypoglycemia, unspecified. - Condition is Stable. - Discharge Instructions: Hypoglycemia, Blood Glucose Monitoring, Adult. - Medication Reconciliation Form, Thank You Letter, Antibiotic Education, Prescription Opioid Use form. - Follow up: Private Physician; When: As needed; Reason: Recheck today's complaints, Re-evaluation by your physician. - Problem is new. - Symptoms have improved. Signatures: Dispatcher [employer] Ren Portillo RN RN em Nieto, Roman, MD MD transport rn: (The following items were deleted from the chart) 16:50 16:46 CT-HEAD/BRAIN W/O CONTRAST ordered. [facility] 17:34 17:21 Head Brain Wo Cont+CT.RAD.BRZ ordered. [facility] 17:44 17:28 01/08/2020 17:28 Discharged to Home. Impression: Hypoglycemia, unspecified. em Condition is Stable. Forms are Medication Reconciliation Form, Thank You Letter, Antibiotic Education, Prescription Opioid Use. Follow up: Private Physician; When: As needed; Reason: Recheck today's complaints, Re-evaluation by your physician. Problem is new. Symptoms have improved. rn
--- NOTE | 2020-01-08 17:29 | ER ---
Nurse's Notes [facility] Name: Moe Carlson Age: 74 yrs Sex: Male : 1945 Arrival Date: 01/08/2020 Time: 15:17 Bed 4 Private MD: Diagnosis: Hypoglycemia, unspecified Presentation: 01/07 15:17 Chief complaint: EMS states: called out to [facility] for low BGL, pt told family felt em like glucose was getting low, on scene was 48, EMS gave 3 tubes of oral glucose, BGL 61 after glucose, denies pain. Coronavirus screen: The patient has NOT traveled to a country currently being monitored by the [facility] within the last 14 days. The patient has NOT had contact with any known and/or suspected case of coronavirus. Ebola Screen: Patient negative for fever greater than or equal to 101.5 degrees Fahrenheit, and additional compatible Ebola Virus Disease symptoms Patient denies exposure to infectious person. Patient denies travel to an Ebola-affected area in the 21 days before illness onset. No symptoms or risks identified at this time. Initial Sepsis Screen: Does the patient meet any 2 criteria? No. Patient's initial sepsis screen is negative. Does the patient have a suspected source of infection? No. Patient's initial sepsis screen is negative. Risk Assessment: Do you want to hurt yourself or someone else? Patient reports no desire to harm self or others. 15:17 Method Of Arrival: EMS: [facility] em 15:17 Acuity: DAVION 2 em Historical: - Allergies: 15:21 peach; em 15:21 chocolate flavor; em 15:21 tomato; em - PMHx: 15:21 Diabetes - IDDM; Hyperlipidemia; Hypertension; em - PSHx: 15:21 Heart stents; Heart Surgery; em - Immunization history:: Adult Immunizations up to date. - Social history:: Smoking status: Patient denies any tobacco usage or history of. - Family history:: not pertinent. - Hospitalizations: : No recent hospitalization is reported. Screenin:17 Abuse screen: Denies threats or abuse. Nutritional screening: No deficits noted. em Nutritional screening: No deficits noted. Fall Risk None identified. 15:17 Tuberculosis screening: No symptoms or risk factors identified. em Assessment: 15:17 General: Appears in no apparent distress. comfortable, Behavior is calm, cooperative. em Pain: Denies pain. Neuro: Level of Consciousness is awake, alert, obeys commands, Oriented to person, place, time, situation, Appropriate for age Drug And Alcohol Counselor are equal bilaterally Moves all extremities. Speech is normal, Facial symmetry appears normal. Cardiovascular: Capillary refill < 3 seconds Patient's skin is warm and dry. Respiratory: Airway is patent Respiratory effort is even, unlabored, Respiratory pattern is regular, symmetrical. GI: Abdomen is flat, Patient currently denies nausea, vomiting. Derm: Skin is intact, is healthy with good turgor, Skin is pink, warm \T\ dry. Musculoskeletal: Capillary refill < 3 seconds, Range of motion: intact in all extremities. 15:35 Reassessment: Patient appears in no apparent distress at this time. sandwich, chips and em fruit cocktail given, tolerated well. 16:37 Reassessment: Patient appears in no apparent distress at this time. Patient and/or em family updated on plan of care and expected duration. Pain level reassessed. Patient is alert, oriented x 3, equal unlabored respirations, skin warm/dry/pink. 17:44 Reassessment: Patient appears in no apparent distress at this time. Patient and/or em family updated on plan of care and expected duration. Pain level reassessed. Patient is alert, oriented x 3, equal unlabored respirations, skin warm/dry/pink. Patient denies pain at this time. Patient states feeling better. Patient states symptoms have improved. Vital Signs: 15:17 BP 118 / 56; Pulse 61; Resp 18; Temp 98.1; Pulse Ox 96% on R/A; Pain 0/10; em 16:37 BP 104 / 49; Pulse 60; Resp 16; Pulse Ox 99% on R/A; Pain 0/10; em 17:44 BP 137 / 72; Pulse 59; Resp 18; Pulse Ox 99% on R/A; em ED Course: 15:17 Patient arrived in ED. em 15:19 Ovi Goldberg MD is Attending Physician. rn 15:20 Triage completed. em 15:20 Inserted saline lock: 20 gauge in right antecubital area, using aseptic technique. ms Blood collected. 15:21 Arm band placed on. em 15:21 Patient has correct armband on for positive identification. Placed in gown. Bed in low em position. Call light in reach. Adult w/ patient. Pulse ox on. NIBP on. 15:25 Ren Menezes, RN is Primary Nurse. em 16:01 Initial lab(s) drawn, by me, by EMS personnel. EKG done, by director of digital technology. reviewed by Ovi Goldberg MD. 17:14 Head Brain Wo Cont In Process Unspecified. EDMS 17:43 No provider procedures requiring assistance completed. IV discontinued, intact, em bleeding controlled, No redness/swelling at site. Pressure dressing applied. Administered Medications: No medications were administered Point of Care Testing: Blood Glucose: 15:21 Blood Glucose: 84 mg/dL; em 16:38 Blood Glucose: 126 mg/dL; em Ranges: Outcome: 17:28 Discharge ordered by MD. rn 17:43 Discharged to home via wheelchair, with family. em 17:43 Condition: good 17:43 Discharge instructions given to patient, family, Instructed on discharge instructions, follow up and referral plans. medication usage, Demonstrated understanding of instructions, follow-up care. 17:44 Patient left the ED. em Signatures: Dispatcher [employer] Ren Portillo, RN RN [facility] Ovi Gonzalez MD MD senior internal auditor: (The following items were deleted from the chart) 16:03 16:01 Inserted saline lock: 20 gauge in right antecubital area, using aseptic ms technique. Blood collected. ms
[2020-01-08 17:56] VITALS: TEMP 98.1
[2020-01-08 17:59] VITALS: O2SAT 99
[2020-01-08 18:00] VITALS: BP 137/72
[2020-01-08 22:00] LABS: Blood Morphology Comment NOTED (NOT SEEN); Platelet Estimate ADEQ; Poikilocytosis 1+; Urine White Blood Cell Casts OK
--- NOTE | 2020-01-09 07:30 | EKG ---
Test Date: 2020-01-08 Test Time: 14:55:49 [employer] Caller: JOCELINE MEASUREMENT RESULTS: Intervals: Rate: 63 [place]: 186 QRSD: 108 QT: 412 QTc: 421 [place]: P: 39 [place]: 186 QRS: -27 T: 251 INTERPRETIVE STATEMENTS: Normal sinus rhythm Low voltage QRS ST & T wave abnormality, consider inferior ischemia Septal infarct Abnormal ECG Compared to ECG 02/08/2018 17:22:44 ST (T wave) deviation now present Possible ischemia now present Atrial premature complex(es) no longer present T-wave abnormality no longer present Electronically Signed On 01-09-20 07:29:26 CDT by Elkin Devi
== END 2020-01-08 17:44 | disposition home or self-care (01) ==
LOC: ER 15:15
DX: E11.649 Type 2 diabetes mellitus with hypoglycemia without coma (principal); I10 Essential (primary) hypertension; Z91.018 Allergy to other foods; Z95.818 Presence of other cardiac implants and grafts
CPT/HCPCS: 36415; 70450; 80048; 82947; 85025; 93005; 99284

== ENCOUNTER 2021-11-21 17:31 | Inpatient (IN) | payer OTHER ==
--- OUTSIDE RECORDS SUMMARY | 2021-11-21 17:35 | XMS REPORT | Continuity of Care Document ---
:1945 Author Organization [facility] Address [address] [place] [address] Dr[address] [place] [id number] Care Team Providers Name Role Phone Tami Attending Clinician Unavailable Rafy_Amber Admitting Clinician Unavailable Payers Payer Name Policy Type Policy Number Effective Date Expiration Date S ource Problems This patient has no known problems. Allergies, Adverse Reactions, Alerts This patient has no known allergies or adverse reactions. Medications This patient has no known medications. Procedures This patient has no known procedures. Encounters Start End Encounter Admission Attending Care Care Encounter Source Date/Time Date/Time Type Type Clinicians Facility Department ID 2020-07-24 2020-07-24 Outpatient Tami [facility] [id number] [address] 11:05:00 11:05:00 [id number] Family Practic e Results This patient has no known results.
[2021-11-21] MEDS ORDERED: GLUCAGON 1 MG/VIAL IM PRN (18:09)
[2021-11-21] MEDS ORDERED: D50W 25 GM/50 ML SYRINGE IV PRN (18:09)
[2021-11-21] MEDS ORDERED: ONDANSETRON 4 MG/2 ML VIAL IV PRN (18:13)
[2021-11-21] MEDS ORDERED: MORPHINE 2 MG/ML SYR IV PRN (18:13)
[2021-11-21] MEDS ORDERED: ACETAMINOPHEN 500 MG TAB PO PRN (18:14)
[2021-11-21 19:00] LABS: Absolute Lymphocytes (CBC) 0.9 K/uL (0.7-4.9); Hematocrit 39.9 % (39.6-49.0); Lymphocytes % 11.9 % (15.3-44.8); MPV 8.8 fL (7.6-11.3); RBC Red Blood Cell Count 4.36 M/uL (4.33-5.43)
[2021-11-21 19:26] LABS: Albumin 3.1 g/dL (3.4-5.0); Bilirubin Total 0.9 mg/dL (0.2-1.0); Magnesium 2.7 mg/dL (1.8-2.4); Potassium 4.7 mmol/L (3.5-5.1); Protein, Total 7.5 g/dL (6.4-8.2); Thyroid Stimulating Hormone 1.98 uIU/mL (0.360-3.740)
--- NOTE | 2021-11-21 20:46 | RAD REPORT ---
EXAM DESCRIPTION: RAD - Chest Pa And Lat (2 Views) - 11/21/2021 8:19 pm CLINICAL HISTORY: LLQ pain Chest pain. COMPARISON: Chest Pa And Lat (2 Views) dated 01/02/2019; Chest Pa And Lat (2 Views) dated 12/31/2018; Ch est Pa And Lat (2 Views) dated 12/29/2018; Chest Pa And Lat (2 Views) dated 12/27/2018 FINDINGS: The lungs are mildly emphysematous but clear. The heart is moderately enlarged in size. No displaced fractures. Sternotomy wires are present. IMPRESSION: Mild COPD.
--- NOTE | 2021-11-21 20:49 | RAD REPORT ---
EXAM DESCRIPTION: CT - Abdomen Pelvis Wo Contrast - 11/21/2021 8:23 pm CLINICAL HISTORY: Abdominal pain. LLQ COMPARISON: Abdomen Pelvis W Contrast dated 07/04/2016 TECHNIQUE: CT imaging of the abdomen and pelvis was performed without contrast. Solid organ and vasc ular assessment is limited due to lack of IV contrast. All CT scans are performed using dose optimization technique as appropriate and may include automated exposure control or mA/KV adjustment according to patient size. FINDINGS: The lower lung lawrence are clear.Cholecystectomy. The liver, spleen, pancreas, adrenal glands and kidneys are within normal limits for a limited non-co ntrast examination. 5 cm length of the descending colon in the left lower quadrant shows moderate inflammation and severa l diverticula. Acute diverticulitis is the favored diagnosis. No abscess evident. No free intraperito andrez air. No bowel obstruction. Mild small bowel ileus is present in the left abdomen. The appendix i s not identified as a discrete structure, however, no secondary findings of appendicitis are identifi ed. The osseous structures are within normal limits. IMPRESSION: Left lower quadrant colonic abnormality detailed above most likely represents acute dive rticulitis. After appropriate treatment, consider follow-up colonoscopy to exclude underlying mass le nena. A limited non-contrast examination was performed as detailed.
[2021-11-21] MEDS: INSULIN -REGULAR HUMAN 50 UNIT/0.5 ML ML SQ SCH (21:00)
[2021-11-21] MEDS: Levofloxacin500mg IV 500 MG/100 ML BAG IV SCH (21:46)
[2021-11-21] MEDS: NA CHLORIDE 0.9% 1,000 ML IV SCH (21:46)
[2021-11-21] MEDS: HEPARIN 5000 UNIT/ML 1 ML VIAL SQ SCH (21:47)
[2021-11-21 22:48] VITALS: BMI 30.2
[2021-11-22] MEDS: METRONIDAZOLE 500mg IVPB 500 MG/100 ML BAG IV SCH ×3 (01:33→16:36)
[2021-11-22] MEDS: INSULIN -REGULAR HUMAN 50 UNIT/0.5 ML ML SQ SCH ×4 (07:30→21:00)
[2021-11-22] MEDS ORDERED: PNEUMOCOCCAL VACCINE 0.5 ML IMVAC ONE (08:00)
[2021-11-22] MEDS: NA CHLORIDE 0.9% 1,000 ML IV SCH ×2 (08:20→21:30)
[2021-11-22] MEDS: HEPARIN 5000 UNIT/ML 1 ML VIAL SQ SCH (10:14)
[2021-11-22 10:30] VITALS: O2SAT 96
[2021-11-22 14:37] LABS: Urine Appearance CLEAR (Clear); Urine Bilirubin NEGATIVE (Negative); Urine Blood NEGATIVE (Negative); Urine Color YELLOW (Yellow); Urine Glucose 1+ (Negative); Urine Protein NEGATIVE (Negative); Urine Specific Gravity 1.015 (1.005-1.030); Urine Urobilinogen 0.2 mg/dL (0.2-1.0)
[2021-11-22 14:38] LABS: Urine Microscopic Reflex NO UMIC
[2021-11-22] MEDS: Levofloxacin500mg IV 500 MG/100 ML BAG IV SCH (18:02)
[2021-11-22] MEDS: MAGNESIUM OXIDE 400 MG TAB PO SCH (21:00)
[2021-11-22] MEDS ORDERED: HOME MED 1 EA UNK (Magnesium Oxide [Magnesium] 400 MG Tablet) PO SCH (21:00)
[2021-11-22] MEDS: SACUBITRIL/VALSARTAN 24/26 MG TAB PO SCH (21:31)
[2021-11-22] MEDS: METOPROLOL TAR 25 MG TAB PO SCH (21:31)
[2021-11-22] MEDS: GABAPENTIN 100 MG CAP PO SCH (21:31)
[2021-11-22] MEDS: ASPIRIN 81 MG CHEWABLE TABLET PO SCH (21:31)
[2021-11-22] MEDS: RIVAROXABAN 15 MG TABLET PO SCH (21:31)
--- NOTE | 2021-11-23 00:11 | HP ---
Date of Admission: 11/21/2021 Chief Complaint: Abdominal pain. History Of Present Illness: This is a 76-year-old male patient who came into office today with his s on with 2 days history of left lower quadrant abdominal pain. The patient was of acute onset continu ous pain. No aggravating or relieving factors. No rash in this area of pain. No fall. No injury. Denies any nausea, vomiting, fever, chills. No constipation. No diarrhea. Denies any urinary comp laints. No blood in stool. After he came into office today, after he was evaluated, he was admitted to the hospital as a direct admission with impression of acute diverticulitis. Allergies: NO KNOWN ALLERGIES. Medications: According to outpatient records the patient is on, 1.Allopurinol 100 mg daily. 2.Aspirin 81 mg daily. 3.Atorvastatin 20 mg daily in the evening. 4.Vitamin D3 1000 units daily. 5.Colchicine 0.6 mg 2 times a day as needed for gout. 6.Furosemide 40 mg takes 2 tablets in the morning and 1 tablet in the evening. 7.Gabapentin 100 mg 2 times a day. 8.Humulin 70/30 insulin as prescribed by pattern illustrator. 9.Tradjenta 5 mg daily. 10.Magnesium oxide 400 mg 2 times a day. 11.Metoprolol succinate 50 mg and he takes 1 tablet by mouth 2 times a day. 12.Pantoprazole 40 mg by mouth daily. 13.Xarelto 15 mg by mouth daily in the evening with meal. 14.Entresto 97/103 mg, takes 1 tablet by mouth 2 times a day. 15.Spironolactone 25 mg by mouth daily. Review of Systems: GI: As mentioned above. All other systems reviewed and negative. Past Medical History: Significant for diabetic retinopathy, type 2 diabetes mellitus, hypertension, mixed hyperlipidemia, coronary artery disease, chronic systolic congestive heart failure, paroxysmal atrial fibrillation, hypomagnesemia, chronic kidney disease, anemia due to chronic kidney disease and thrombocytopenia. Patient's last colonoscopy was on April 03, 2020, showed diverticulosis and polyps. Past Surgical History: Cataract surgery, coronary artery angioplasty with stent placement in 2014, c oronary artery bypass surgery March 15, 2012, cholecystectomy 2016. Family History: Father had OR and hypertension. Mother had hypertension. Brother with diabetes. Social History: Negative for smoking or alcohol use. Immunization History: The patient had his COVID-19 vaccine first dose on January 10, 2021 and second d ose on January 31, 2021 and this was Pfizer vaccine and he had his booster dose on October 11, 2021, wh ich was Moderna. Physical Examination: Vital Signs: Blood pressure 117/67, pulse 74, respiratory rate 18, temperature 97.4, weight 217.6 po unds, height 70 inches. General: Awake, alert, oriented, not in distress. HEENT: Head atraumatic, normocephalic. Conjunctivae nonerythematous. Sclerae white. Mouth, no thr ush or edema noted. Ears/Nose, no mass, lesion, discharge noted. Neck: Supple. No JVD, lymph nodes, bruit, thyromegaly noted. Lungs: Bilateral good equal air entry. Clear to auscultation. No rhonchi. No rales. Heart: Normal heart sounds, no murmur or gallop. Abdomen: Soft. Bowel sounds normal. No guarding, rigidity. No distention. No rebound tenderness, but the patient has severe tenderness in left lower quadrant. Extremities: No leg edema. No calf tenderness. Skin: No rash, ulcer, cellulitis. Lymphatics: No lymph node enlargement in neck, supraclavicular, infraclavicular region. Neuro: No focal neurological deficit. Chest: Unremarkable. External Genitalia: Deferred. Rectal: Deferred. Laboratory Data: White count 7.4, hemoglobin 13, platelets 212. Sodium 134, potassium 4.7, chloride 102, bicarb 26, BUN 38, creatinine 1.60. EGFR 42. Liver function tests unremarkable. TSH 1.98. Chest x-ray shows changes of COPD. CAT scan of abdomen and pelvis without contrast shows 5 cm length of descending colon in the left lower quadrant showing moderate inflammation and several diverticula . No free intraperitoneal air. No bowel obstruction. Mild small bowel ileus is present in the left abdomen. Impression: 1.Acute diverticulitis without perforation, without abscess. 2.Ileus secondary to above. 3.Chronic kidney disease, stage IIIB. 4.Anemia due to chronic kidney disease. 5.Diabetes mellitus with chronic kidney disease. 6.Hypertension. 7.Mixed hyperlipidemia. 8.Coronary artery disease. 9.Chronic systolic congestive heart failure. 10.Paroxysmal atrial fibrillation. 11.Hypomagnesemia. Plan: Admit patient to hospital for further evaluation and management of this problem. The patient is appropriate for inpatient and is expected to spend 2 midnights in hospital. We will go ahead and start him on empiric antibiotic, which is Levaquin and metronidazole. IV fluid will be given. We wi ll keep him n.p.o. tonight, but starting tomorrow we will consider starting him on clear liquid diet depending on his condition. Pain medication will be given per order. DVT prophylaxis will be given using heparin. I will re-evaluate him again tomorrow and we will decide about which home medications to continue. Diabetes will be managed at present time with sliding scale insulin. Details and plan of treatment discussed with the patient. Urinalysis and urine culture were also ordered to be done at the time of admission. We will follow up on the re akiko. RACHANA/MODL Voice ID: [id number]
[2021-11-23] MEDS: METRONIDAZOLE 500mg IVPB 500 MG/100 ML BAG IV SCH ×3 (01:15→17:08)
[2021-11-23 06:22] LABS: Absolute Lymphocytes (CBC) 0.7 K/uL (0.7-4.9); Hematocrit 38.9 % (39.6-49.0); Lymphocytes % 11.3 % (15.3-44.8); MPV 9.2 fL (7.6-11.3); RBC Red Blood Cell Count 4.23 M/uL (4.33-5.43)
[2021-11-23 06:40] LABS: Magnesium 2.7 mg/dL (1.8-2.4); Potassium 4.8 mmol/L (3.5-5.1)
[2021-11-23] MEDS: INSULIN -REGULAR HUMAN 50 UNIT/0.5 ML ML SQ SCH ×4 (07:30→20:08)
[2021-11-23] MEDS: MAGNESIUM OXIDE 400 MG TAB PO SCH ×2 (09:00→20:18)
[2021-11-23] MEDS: PANTOPRAZOLE 40MG TABLET PO SCH (09:08)
[2021-11-23] MEDS: METOPROLOL TAR 25 MG TAB PO SCH ×2 (09:08→20:18)
[2021-11-23] MEDS: GABAPENTIN 100 MG CAP PO SCH ×2 (09:09→20:18)
[2021-11-23] MEDS: allopurinoL 100 MG TAB PO SCH (09:09)
[2021-11-23] MEDS: SACUBITRIL/VALSARTAN 24/26 MG TAB PO SCH ×2 (09:09→20:19)
[2021-11-23] MEDS: ASPIRIN 81 MG CHEWABLE TABLET PO SCH ×2 (09:09→20:18)
--- NOTE | 2021-11-23 09:24 | PN ---
Date of Progress Note: 11/23/2021 Subjective: The patient was seen this morning for followup. No new complaints or problems reported by him. He was lying in bed. Had a bowel movement in last 24 hours. No bleeding reported. No naus ea. No vomiting. The patient reports that abdominal pain is low better compared to yesterday. He i s tolerating clear liquid well. Objective: Vital signs: Reviewed. Remains afebrile, hemodynamically stable. HEENT: Unremarkable. Lungs: Clear to auscultation. Heart: Sounds normal. Abdomen: Soft. Bowel sounds normal. No guarding. No rigidity. No rebound tenderness. Bowel soun ds normoactive. The patient does have left lower quadrant tenderness. It is still significant tende rness, but definitely better compared to last 2 days. Extremity: No leg edema. Laboratory Data: White count 5.9, hemoglobin 12.6, platelets 182. Sodium 135, potassium 4.8, chlori de 105, bicarb 25, BUN 23, creatinine 1.33, glucose 144. Impression: 1.Acute diverticulitis. 2.Coronary artery disease. 3.Chronic systolic congestive heart failure. 4.Diabetes mellitus. 5.Hypertension. 6.Anemia due to chronic kidney disease. Plan: We will go ahead and continue current antibiotics. Continue IV fluid. Rate was reduced. We will continue clear liquid diet. Ambulation was encouraged. Continue current anticoagulation therap y and current home medications. We will leave him on clear liquid diet today. I will re-evaluate kati phillips tomorrow. Depending on his condition tomorrow, we will decide whether we can advance his diet or n ot, but we will consider advancing diet once his abdominal tenderness is better than where it is righ t now and that may happen either tomorrow or day after tomorrow. Possible discharge to go home eithe r Thursday or Thursday of this coming week. The patient should have repeat colonoscopy in about 8 weeks from now with his sql server bi developer and I did discuss all these details with the patient as well as his son who was at bedside. RACHANA/MODL Voice ID: [id number] Report ID: [id number]
--- NOTE | 2021-11-23 09:24 | PN ---
Date of Progress Note: 11/22/2021 Subjective: The patient was seen for followup this morning. No new complaints or problems reported by him. Lying in bed, not in distress. Abdominal pain is slightly better as he says. No nausea. N o vomiting. No bleeding. Objective: Vital Signs: Reviewed. HEENT: Unremarkable. Lungs: Clear to auscultation. Heart: Sounds normal. Abdomen: Soft. Bowel sounds normal. No guarding, rigidity, distention. Presence of left-sided ten derness unchanged from yesterday that he has significant tenderness in the left lower quadrant. No r ebound tenderness. No guarding. Extremities: No leg edema. Impression: 1.Acute diverticulitis. 2.Chronic systolic congestive heart failure. 3.Coronary artery disease. 4.Hypertension. 5.Diabetes mellitus. Plan: We will go ahead and continue current medications, continue home medications including anticoa gulation therapy. We will discontinue heparin. We will go ahead and continue current IV fluid, IV a ntibiotics as well as ambulation was encouraged. We will have the patient on clear liquid diet and I have advised him not to drink excessive amount of liquids. We will see him tomorrow for followup. We will repeat blood work tomorrow morning. RACHANA/MODL Voice ID: [id number] Report ID: [id number]
[2021-11-23] MEDS: NA CHLORIDE 0.9% 1,000 ML IV SCH (15:08)
[2021-11-23] MEDS: ATORVASTATIN 20 MG TAB PO SCH (17:08)
[2021-11-23] MEDS: RIVAROXABAN 15 MG TABLET PO SCH (17:08)
[2021-11-23] MEDS: Levofloxacin500mg IV 500 MG/100 ML BAG IV SCH (17:59)
[2021-11-23 21:30] LABS: Urine Appearance CLEAR (Clear); Urine Bilirubin NEGATIVE (Negative); Urine Blood NEGATIVE (Negative); Urine Color YELLOW (Yellow); Urine Glucose 2+ (Negative); Urine Protein NEGATIVE (Negative); Urine Urobilinogen 0.2 mg/dL (0.2-1.0)
[2021-11-23 22:03] LABS: Urine Bacteria <20 /HPF (NONE SEEN); Urine RBC NONE SEEN /HPF (NONE SEEN)
[2021-11-24] MEDS: METRONIDAZOLE 500mg IVPB 500 MG/100 ML BAG IV SCH ×3 (00:44→16:57)
[2021-11-24] MEDS: INSULIN -REGULAR HUMAN 50 UNIT/0.5 ML ML SQ SCH ×4 (07:30→19:56)
[2021-11-24] MEDS: allopurinoL 100 MG TAB PO SCH (08:26)
[2021-11-24] MEDS: SACUBITRIL/VALSARTAN 24/26 MG TAB PO SCH ×2 (08:26→19:54)
[2021-11-24] MEDS: ASPIRIN 81 MG CHEWABLE TABLET PO SCH ×2 (08:26→19:54)
[2021-11-24] MEDS: PANTOPRAZOLE 40MG TABLET PO SCH (08:26)
[2021-11-24] MEDS: GABAPENTIN 100 MG CAP PO SCH ×2 (08:26→19:54)
[2021-11-24] MEDS: METOPROLOL TAR 25 MG TAB PO SCH ×2 (08:27→19:55)
[2021-11-24] MEDS: MAGNESIUM OXIDE 400 MG TAB PO SCH ×2 (08:27→19:55)
[2021-11-24] MEDS: NA CHLORIDE 0.9% 1,000 ML IV SCH (10:40)
--- NOTE | 2021-11-24 16:18 | PN ---
Date of Progress Note: 11/24/2021 Subjective: The patient was seen this morning for followup. No new complaints problems reported by the patient, lying in bed, not in any distress overall. Reports that his abdominal pain is better. No nausea or vomiting. Had a bowel movement and denies any blood in stool. He is tolerating liquid diet very well. Objective: Vital Signs: Reviewed. HEENT: Unremarkable. Lungs: Clear to auscultation. Heart: Sounds normal. Abdomen: Soft. Bowel sounds normal. No guarding, rigidity, or distention. Presence of mild tender ness in left lower quadrant, but overall much better than last 2 days. No rebound tenderness. Extremities: No leg edema. Impression: 1.Acute diverticulitis. 2.Chronic systolic heart failure. 3.Diabetes mellitus. 4.Hypertension. 5.Coronary artery disease. Plan: We will continue current medication. Continue current IV antibiotic. We will advance diet to full liquid diet at lunch time and soft diet at dinner time today. I will see him tomorrow for foll owup. Depending on his condition tomorrow we will decide if we can discharge him to go home tomorrow or not. RACHANA/MODL Voice ID: [id number] Report ID: [id number]
[2021-11-24] MEDS: RIVAROXABAN 15 MG TABLET PO SCH (16:57)
[2021-11-24] MEDS: ATORVASTATIN 20 MG TAB PO SCH (16:57)
[2021-11-24] MEDS: Levofloxacin500mg IV 500 MG/100 ML BAG IV SCH (18:09)
[2021-11-25] MEDS: METRONIDAZOLE 500mg IVPB 500 MG/100 ML BAG IV SCH ×2 (00:33→08:32)
[2021-11-25 05:59] LABS: Absolute Lymphocytes (CBC) 0.9 K/uL (0.7-4.9); Lymphocytes % 19.4 % (15.3-44.8); MPV 9.3 fL (7.6-11.3); RBC Red Blood Cell Count 4.27 M/uL (4.33-5.43)
[2021-11-25 06:04] LABS: Magnesium 2.5 mg/dL (1.8-2.4); Potassium 5.3 mmol/L (3.5-5.1)
[2021-11-25] MEDS ORDERED: SOD POLYSTYREN SUL 15 GM/60 ML UCUP PO ONE (07:10)
[2021-11-25] MEDS ORDERED: FUROSEMIDE 40 MG TABLET PO ONE (07:11)
[2021-11-25] MEDS: INSULIN -REGULAR HUMAN 50 UNIT/0.5 ML ML SQ SCH (07:30)
[2021-11-25] MEDS: PANTOPRAZOLE 40MG TABLET PO SCH (08:29)
[2021-11-25] MEDS: GABAPENTIN 100 MG CAP PO SCH (08:30)
[2021-11-25] MEDS: MAGNESIUM OXIDE 400 MG TAB PO SCH (08:30)
[2021-11-25] MEDS: METOPROLOL TAR 25 MG TAB PO SCH (08:30)
[2021-11-25] MEDS: ASPIRIN 81 MG CHEWABLE TABLET PO SCH (08:30)
[2021-11-25] MEDS: allopurinoL 100 MG TAB PO SCH (08:30)
[2021-11-25] MEDS: SACUBITRIL/VALSARTAN 24/26 MG TAB PO SCH (08:32)
[2021-11-25 09:36] VITALS: BP 119/57; TEMP 97.6
--- NOTE | 2021-11-26 02:22 | DS ---
Date of Discharge: 11/25/2021 Subjective: The patient was seen this morning for followup. He was feeling much better. Denies any more abdominal pain. No nausea, no vomiting. Had a bowel movement which was normal. Denies any bl eeding. His appetite is good. Tolerating diet very well. Objective: Vital Signs: Reviewed. HEENT: Unremarkable. Lungs: Clear to auscultation. Heart: Sounds normal. Abdomen: Soft. Bowel sounds normal. No guarding, rigidity, tenderness, or distention. Extremities: No leg edema. Laboratory Data: Upon admission, white count 7.4, hemoglobin 13, and platelet count 212. Today, whi te count 4.6, hemoglobin 12.8, and platelets 195. Initial chemistry; sodium 134, potassium 4.7, chloride 102, bicarb 26, BUN 38, creatinine 1.60, gluco se 131. Liver function tests unremarkable. TSH 1.98. Today, sodium 135, potassium 5.3, chloride 10 7, bicarb 23, BUN 16, creatinine 1.31, glucose 180. Instructions/medication: Continue prior home medication except, 1.Change insulin 70/30 as below: a.Today on 11/25/2021, to take insulin 20 units 2 times a day. b.On 11/26/2021, take insulin 30 units 2 times a day. c.Then on 11/27/2021, take insulin 40 units 2 times a day. d.Then on 11/28/2021, to take insulin 50 units 2 times a day. e.Then on 11/29/2021, to take insulin 60 units 2 times a day. f.Then on 11/30/2021, to take insulin 70 units 2 times a day. g.Then as of 12/01/2021, to take insulin 80 units 2 times a day, which is his maintenance dose. 2.Take Levaquin 500 mg daily for 10 days. 3.Take metronidazole 500 mg 3 times a day for 10 days. 4.Follow up at my office next week, call office for appointment. 5.Eat soft diet for 2 days, then advance diet as tolerated to regular diet. 6.Take Metamucil Fiber Gummies, take 3 Fiber Gummies daily. 7.Do not eat any popcorn, tomatoes, strawberry, nuts, etc. Final Diagnoses: 1.Acute diverticulitis, without perforation, without abscess. 2.Ileus secondary to above. 3.Chronic kidney disease, stage IIIB. 4.Anemia due to chronic kidney disease. 5.Diabetes mellitus with chronic kidney disease. 6.Hypertension. 7.Mixed hyperlipidemia. 8.Coronary artery disease. 9.Chronic systolic congestive heart failure. 10.Paroxysmal atrial fibrillation. 11.Hypomagnesemia. Hospital Course: A 76-year-old male patient came into office with complaints of left lower quadrant abdominal pain. Please see dictated H and P for more information. After patient was evaluated at [facility], he was admitted to the hospital. Diagnosis of acute diverticulitis was suspected and CAT scan of the abdomen and pelvis done upon admission did prove that the patient had acute diverticulitis wit hout any complication. Initially, he was kept n.p.o. IV fluid and IV antibiotic were started. Day after admission, we started him on clear liquid diet, and as of yesterday we advanced his diet to ful l liquid and then soft diet, which he has tolerated very well. His abdominal pain improved during th is hospitalization to the extent that today when I saw him, he reported that he did not have any more abdominal pain. He is ambulating well. His last colonoscopy was in 2019 and I have instructed him that, once he recovers from this diverticulitis problem, he should have repeat colonoscopy, but he sh ould wait about 8 weeks before having colonoscopy to reduce chances of perforation. The patient was discharged to go home in stable condition with above-mentioned medication. RACHANA/MODL Voice ID: [id number] Report ID: [id number]
== END 2021-11-25 09:48 | disposition home or self-care (01) | DRG 392 ==
LOC: 2ND 17:31
PROVIDERS: ADMIT Internal Medicine; ATTEND Internal Medicine
DX: K57.92 Diverticulitis of intestine, part unspecified, without perforation or abscess without bleeding (principal); K56.7 Ileus, unspecified; I13.0 Hypertensive heart and chronic kidney disease with heart failure and stage 1 through stage 4 chronic kidney disease, or unspecified chronic kidney disease; I50.22 Chronic systolic (congestive) heart failure; E11.22 Type 2 diabetes mellitus with diabetic chronic kidney disease; N18.32 Chronic kidney disease, stage 3b; D63.8 Anemia in other chronic diseases classified elsewhere; E78.2 Mixed hyperlipidemia; I25.10 Atherosclerotic heart disease of native coronary artery without angina pectoris; I48.0 Paroxysmal atrial fibrillation; E83.42 Hypomagnesemia
CPT/HCPCS: 36415; 71046; 74176; 80048; 80053; 81001; 81003; 82947; 83735; 84443; 85025; 87086; 87088; J1644; J7030

== ENCOUNTER 2022-10-21 10:22 | Emergency (ER) | payer OTHER ==
--- OUTSIDE RECORDS SUMMARY | 2022-10-21 10:25 | XMS REPORT | Continuity of Care Document ---
:1945 Author Organization [facility] t Address [address] [place] [address] [address]. 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 of 2-15 Family toenails Toenails 00:00: Practi c 00 e Foot Foot Problem Active 2021-11 [facility] callus Callus 2-15 Family 00:00: Practic 00 e 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 00:00: Pr actic disorder Disorder 00 e Senile Senile Problem Active 2021-11 [facility] purpura Purpura 2-01 Family 00:00: Practic 00 e Chronic Chronic Problem Active 2021-11 [facility] kidney Kidney 2-01 Family disease Disease 00:00: Practic stage 3 Stage 3 00 e Long-term Long-term Problem Active 2021-11 Sergei rodriguez current Current 2-01 Family use of Use of 00:00: Practic insulin Insulin 00 e Type 2 Type 2 Problem Active [facility] diabetes Diabetes 5-19 Family mellitus Mellitus 00:00: Practi c 00 e 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 Fa stormy infarction Infarction 00:00: Pr actic 00 e Family Family Problem Active [facility] history of History of 9-22 Fa stormy Cardiovasc Cardiovasc 00:00: Pr actic ular ular 00 e disease Disease Family Family Problem Active [facility] history of History of 9-22 Fa stormy diabetes Diabetes 00:00: Practi c mellitus Mellitus 00 e Multiple Multiple Problem Active [facility] ge complicati Complicati 4-29 Fa stormy ons due to ons Due to 00:00: Pr actic type 2 Type 2 00 e diabetes Diabetes mellitus Mellitus Hypoglycem Hypoglycem Problem Active [facility] ia ia 3-24 Family 00:00: Practic 00 e Vitamin D Vitamin D Problem Active 2018-11 Sergei rodriguez deficiency Deficiency 2-17 Fa stormy 00:00: Practic 00 e Hyperlipid Hyperlipid Problem Active 2018-11 [facility] emia emia 2-17 Family 00:00: Practic 00 e Obesity Obesity Problem Active 2018-11 [facility] 2-17 Family 00:00: Practic 00 e Essential Essential Problem Active 2018-11 Sergei rodriguez hypertensi Hypertensi 2-17 Fa stormy on on 00:00: Practic 00 e Coronary Coronary Problem Active 2018-11 [facility] arterioscl Arterioscl 2-17 Shanna burrows erosis erosis 00:00: Practic 00 e 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 2-17 Family 00:00: Practic 00 e Congestive Congestive Problem Active 2018-11 [facility] heart Heart 2-17 Family failure Failure 00:00: Practic 00 e Gastroesop Gastroesop Problem Active 2018-11 [facility] hageal hageal 2-17 Family reflux Reflux 00:00: Practic disease Disease 00 e without without esophagiti Esophagiti s s Weak Weak Problem Active 2018-11 [facility] arterial Arterial 2-17 Family pulse Pulse 00:00: Practic 00 e Clinical Clinical Problem Active 2018-11 [facility] finding Finding 2-17 Family 00:00: Practic 00 e Respirator Respirator Problem Active [facility] y crackles y Crackles 4-28 Fa stormy 00:00: Practic 00 e Clinical Clinical Problem Active 2016-11 [facility] ge finding Finding 2-07 Family 00:00: Practic 00 e Pneumonia Pneumonia Problem Active 2016-11 Sergei jennifer 2-07 Family 00:00: Practic 00 e Hypertensi Hypertensi Problem Active 2016-11 [facility] ve ve 1-07 Family disorder Disorder 00:00: Practi c 00 e Neuropathy Neuropathy Problem Active 2016-11 [facility] due to Due to 1-07 Family type 2 Type 2 00:00: Practic diabetes Diabetes 00 e mellitus Mellitus Finding of Finding of Problem Active 2016-11 [facility] esophagus Esophagus 11-08 Fami ly 00:00: Practic 00 e Family Family Problem Active 2016-11 [facility] history of History of 11-08 Fa stormy cardiac Cardiac 00:00: Practic disorder Disorder 00 e Disorder Disorder Problem Active Dominik ge due to Due to Family type 2 Type 2 Practic diabetes Diabetes e mellitus Mellitus Allergies, Adverse Reactions, Alerts This patient has no known allergies or adverse reactions. Medications Ordered Filled Start Stop Current Ordering Indication Dosage Frequency Signature Comments Components Source Medication Medication Date Date Medication? Clinician (SIG) Name Name allopurinol allopurinol No allopurino [facility] 100 mg 100 mg l 100 mg Family tablet TAKE tablet TAKE tablet Practic 1 TABLET BY 1 TABLET BY TAKE 1 e MOUTH EVERY MOUTH EVERY TABLET BY DAY DAY MOUTH EVERY DAY atorvastati atorvastati No atorvastat [facility] n 20 mg n 20 mg in 20 mg Famil y tablet TAKE tablet TAKE tablet Practic 1 TABLET BY 1 TABLET BY TAKE 1 e MOUTH DAILY MOUTH DAILY TABLET BY IN EVENING IN EVENING MOUTH WITH MEAL WITH MEAL DAILY IN EVENING WITH MEAL BD BD No BD [facility] Ultra-Fine Ultra-Fine Ultra-Fine Family Mini Pen Mini Pen Mini Pen Pra ctic Needle 31 Needle 31 Needle 31 e gauge x gauge x gauge x 3/16" 3/16" 3/16" colchicine colchicine No 1 Q1D colchicine [facility] 0.6 mg 0.6 mg 0.6 mg Family tablet Take tablet Take tablet Practic 1 tablet 1 tablet Take 1 e every day every day tablet by oral by oral every day route. route. by oral route. Entresto 24 Entresto 24 No 1 BID Entresto [facility] mg-26 mg mg-26 mg 24 mg-26 Fam byron tablet Take tablet Take mg tablet Practic 1 tablet 1 tablet Take 1 e twice a day twice a day tablet by oral by oral twice a route. route. day by oral route. Farxiga 10 Farxiga 10 No Farxiga 10 Village mg tablet mg tablet mg tablet Family TAKE 1 TAKE 1 TAKE 1 Practic TABLET BY TABLET BY TABLET BY e MOUTH EVERY MOUTH EVERY MOUTH DAY FOR 30 DAY FOR 30 EVERY DAY DAYS DAYS FOR 30 DAYS furosemide furosemide No furosemide [facility] 40 mg 40 mg 40 mg Family tablet TAKE tablet TAKE tablet Practic 2 TABLETS 2 TABLETS TAKE 2 e BY MOUTH IN BY MOUTH IN TABLETS BY MORNING, 1 MORNING, 1 MOUTH IN TABLET IN TABLET IN MORNING, 1 EVENING EVENING TABLET IN EVENING gabapentin gabapentin No gabapentin [facility] 100 mg 100 mg 100 mg Family capsule capsule capsule Practi c TAKE 1 TAKE 1 TAKE 1 e CAPSULE BY CAPSULE BY CAPSULE BY MOUTH TWICE MOUTH TWICE MOUTH A DAY A DAY TWICE A DAY lancets 33 lancets 33 No lancets 33 [facility] gauge USE gauge USE gauge USE Family DIRECTED DIRECTED P ractic 3 TIMES 3 TIMES DIRECTED 3 e DAILY DAILY TIMES DAILY magnesium magnesium No magnesium [facility] oxide 400 oxide 400 oxide 400 Family mg (241.3 mg (241.3 mg (241.3 Practic mg mg mg e magnesium) magnesium) magnesium) tablet TAKE tablet TAKE tablet 1 TABLET BY 1 TABLET BY TAKE 1 MOUTH TWICE MOUTH TWICE TABLET BY A DAY A DAY MOUTH TWICE A DAY metoprolol metoprolol No metoprolol [facility] succinate succinate succinate Family ER 25 mg ER 25 mg ER 25 mg Pra ctic tablet,exte tablet,exte tablet,ext e nded nded ended release 24 release 24 release 24 hr TAKE 1 hr TAKE 1 hr TAKE 1 TABLET BY TABLET BY TABLET BY MOUTH EVERY MOUTH EVERY MOUTH DAY DAY EVERY DAY OneTouch OneTouch No 3strip( Q1D OneTouch [facility] Verio test Verio test s) Verio test Family strips Take strips Take strips Practic 3 strips 3 strips Take 3 e every day every day strips by miscell. by miscell. every day route for route for by 30 days. 30 days. miscell. route for 30 days. pantoprazol pantoprazol No pantoprazo [facility] e 40 mg e 40 mg le 40 mg Famil y tablet,areli tablet,areli tablet,del Practic yed release yed release ayed e TAKE 1 TAKE 1 release TABLET BY TABLET BY TAKE 1 MOUTH EVERY MOUTH EVERY TABLET BY DAY. DAY. MOUTH EVERY DAY. Soliqua Soliqua No Soliqua [facility] 100/33 100 100/33 100 100/33 100 Family unit-33 unit-33 unit-33 Practi c mcg/mL mcg/mL mcg/mL e subcutaneou subcutaneou subcutaneo s insulin s insulin us insulin pen Give 36 pen Give 36 pen Give units in AM units in AM 36 units and and in AM and increase as increase as increase directed: directed: as TDD 60 TDD 60 directed: TDD 60 Xarelto 15 Xarelto 15 No Xarelto 15 Village mg tablet mg tablet mg tablet Family TAKE 1 TAKE 1 TAKE 1 Practic TABLET BY TABLET BY TABLET BY e MOUTH EVERY MOUTH EVERY MOUTH DAY WITH DAY WITH EVERY DAY EVENING EVENING WITH MEAL MEAL EVENING MEAL [facility] mg l 100 mg Family tablet TAKE tablet TAKE tablet Practic 1 TABLET BY 1 TABLET BY TAKE 1 e MOUTH EVERY MOUTH EVERY TABLET BY DAY DAY MOUTH EVERY DAY atorvastati atorvastati No atorvastat [facility] n 20 mg n 20 mg in 20 mg Famil y tablet TAKE tablet TAKE tablet Practic 1 TABLET BY 1 TABLET BY TAKE 1 e MOUTH DAILY MOUTH DAILY TABLET BY IN EVENING IN EVENING MOUTH WITH MEAL WITH MEAL DAILY IN EVENING WITH MEAL BD BD No BD [facility] Ultra-Fine Ultra-Fine Ultra-Fine Family Mini Pen Mini Pen Mini Pen Pra ctic Needle 31 Needle 31 Needle 31 e gauge x gauge x gauge x 3/16" 3/16" 3/16" BD BD No [facility] Ultra-Fine Ultra-Fine Ultra-Fine Family Belen Pen Belen Pen Belen Pen Pra ctic Needle 32 Needle 32 Needle 32 e gauge x gauge x gauge x 5/32" USE 5/32" USE 5/32" USE DIRECTED DIRECTED TEST EVERY TEST EVERY DIRECTED DAY DAY TEST EVERY DAY colchicine colchicine No 1 Q1D colchicine [facility] 0.6 mg 0.6 mg 0.6 mg Family tablet Take tablet Take tablet Practic 1 tablet 1 tablet Take 1 e every day every day tablet by oral by oral every day route. route. by oral route. Entresto 24 Entresto 24 No 1 BID Entresto [facility] mg-26 mg mg-26 mg 24 mg-26 Fam byron tablet Take tablet Take mg tablet Practic 1 tablet 1 tablet Take 1 e twice a day twice a day tablet by oral by oral twice a route. route. day by oral route. Entresto 49 Entresto 49 No Entresto [facility] mg-51 mg mg-51 mg 49 mg-51 Fam byron tablet TAKE tablet TAKE mg tablet Practic 1 TABLET BY 1 TABLET BY TAKE 1 e MOUTH TWICE MOUTH TWICE TABLET BY A DAY A DAY MOUTH TWICE A DAY Farxiga 10 Farxiga 10 No Farxiga 10 Village mg tablet mg tablet mg tablet Family TAKE 1 TAKE 1 TAKE 1 Practic TABLET BY TABLET BY TABLET BY e MOUTH EVERY MOUTH EVERY MOUTH DAY FOR 30 DAY FOR 30 EVERY DAY DAYS DAYS FOR 30 DAYS furosemide furosemide No furosemide [facility] 40 mg 40 mg 40 mg Family tablet TAKE tablet TAKE tablet Practic 2 TABLETS 2 TABLETS TAKE 2 e BY MOUTH IN BY MOUTH IN TABLETS BY MORNING, 1 MORNING, 1 MOUTH IN TABLET IN TABLET IN MORNING, 1 EVENING EVENING TABLET IN EVENING gabapentin gabapentin No gabapentin [facility] 100 mg 100 mg 100 mg Family capsule capsule capsule Practi c TAKE 1 TAKE 1 TAKE 1 e CAPSULE BY CAPSULE BY CAPSULE BY MOUTH TWICE MOUTH TWICE MOUTH A DAY A DAY TWICE A DAY lancets 33 lancets 33 No lancets 33 Village gauge USE gauge USE gauge USE Family DIRECTED DIRECTED P ractic 3 TIMES 3 TIMES DIRECTED 3 e DAILY DAILY TIMES DAILY magnesium magnesium No magnesium [facility] oxide 400 oxide 400 oxide 400 Family mg (241.3 mg (241.3 mg (241.3 Practic mg mg mg e magnesium) magnesium) magnesium) tablet TAKE tablet TAKE tablet 1 TABLET BY 1 TABLET BY TAKE 1 MOUTH TWICE MOUTH TWICE TABLET BY A DAY A DAY MOUTH TWICE A DAY metoprolol metoprolol No metoprolol [facility] succinate succinate succinate Family ER 25 mg ER 25 mg ER 25 mg Pra ctic tablet,exte tablet,exte tablet,ext e nded nded ended release 24 release 24 release 24 hr TAKE 1 hr TAKE 1 hr TAKE 1 TABLET BY TABLET BY TABLET BY MOUTH EVERY MOUTH EVERY MOUTH DAY DAY EVERY DAY OneTouch OneTouch No 3strip( Q1D OneTouch [facility] Verio test Verio test s) Verio test Family strips Take strips Take strips Practic 3 strips 3 strips Take 3 e every day every day strips by miscell. by miscell. every day route for route for by 30 days. 30 days. miscell. route for 30 days. pantoprazol pantoprazol No pantoprazo [facility] e 40 mg e 40 mg le 40 mg Famil y tablet,areli tablet,areli tablet,del Practic yed release yed release ayed e TAKE 1 TAKE 1 release TABLET BY TABLET BY TAKE 1 MOUTH EVERY MOUTH EVERY TABLET BY DAY. DAY. MOUTH EVERY DAY. Soliqua Soliqua No Soliqua [facility] 100/33 100 100/33 100 100/33 100 Family unit-33 unit-33 unit-33 Practi c mcg/mL mcg/mL mcg/mL e subcutaneou subcutaneou subcutaneo s insulin s insulin us insulin pen Give 36 pen Give 36 pen Give units in AM units in AM 36 units and and in AM and increase as increase as increase directed: directed: as TDD 60 TDD 60 directed: TDD 60 Xarelto 15 Xarelto 15 No Xarelto 15 Village mg tablet mg tablet mg tablet Family TAKE 1 TAKE 1 TAKE 1 Practic TABLET BY TABLET BY TABLET BY e MOUTH EVERY MOUTH EVERY MOUTH DAY WITH DAY WITH EVERY DAY EVENING EVENING WITH MEAL MEAL EVENING MEAL [facility] mg l 100 mg Family tablet TAKE tablet TAKE tablet Practic 1 TABLET BY 1 TABLET BY TAKE 1 e MOUTH EVERY MOUTH EVERY TABLET BY DAY DAY MOUTH EVERY DAY atorvastati atorvastati No atorvastat [facility] n 20 mg n 20 mg in 20 mg Famil y tablet TAKE tablet TAKE tablet Practic 1 TABLET BY 1 TABLET BY TAKE 1 e MOUTH DAILY MOUTH DAILY TABLET BY IN EVENING IN EVENING MOUTH WITH MEAL WITH MEAL DAILY IN EVENING WITH MEAL BD BD No [facility] Ultra-Fine Ultra-Fine Ultra-Fine Family Mini Pen Mini Pen Mini Pen Pra ctic Needle 31 Needle 31 Needle 31 e gauge x gauge x gauge x 3/16" 3/16" 3/16" BD BD [facility] Ultra-Fine Ultra-Fine Ultra-Fine Family Belen Pen Belen Pen Belen Pen Pra ctic Needle 32 Needle 32 Needle 32 e gauge x gauge x gauge x 5/32" USE 5/32" USE 5/32" USE DIRECTED DIRECTED TEST EVERY TEST EVERY DIRECTED DAY DAY TEST EVERY DAY colchicine colchicine No 1 Q1D colchicine [facility] 0.6 mg 0.6 mg 0.6 mg Family tablet Take tablet Take tablet Practic 1 tablet 1 tablet Take 1 e every day every day tablet by oral by oral every day route. route. by oral route. Entresto 24 Entresto 24 No 1 [facility]ID [facility] mg mg-26 mg 24 mg-26 Fam byron tablet Take tablet Take mg tablet Practic 1 tablet 1 tablet Take 1 e twice a day twice a day tablet by oral by oral twice a route. route. day by oral route. Entresto 49 [facility]o [facility] mg-51 mg mg-51 mg 49 mg-51 Fam byron tablet TAKE tablet TAKE mg tablet Practic 1 TABLET BY 1 TABLET BY TAKE 1 e MOUTH TWICE MOUTH TWICE TABLET BY A DAY A DAY MOUTH TWICE A DAY [facility] 10 [facility] mg tablet mg tablet mg tablet Family TAKE 1 TAKE 1 TAKE 1 Practic TABLET BY TABLET BY TABLET BY e MOUTH EVERY MOUTH EVERY MOUTH DAY FOR 30 DAY FOR 30 EVERY DAY DAYS DAYS FOR 30 DAYS furosemide furosemide No furosemide [facility] 40 mg 40 mg 40 mg Family tablet TAKE tablet TAKE tablet Practic 2 TABLETS 2 TABLETS TAKE 2 e BY MOUTH IN BY MOUTH IN TABLETS BY MORNING, 1 MORNING, 1 MOUTH IN TABLET IN TABLET IN MORNING, 1 EVENING EVENING TABLET IN EVENING gabapentin gabapentin No gabapentin [facility] 100 mg 100 mg 100 mg Family capsule capsule capsule Practi c TAKE 1 TAKE 1 TAKE 1 e CAPSULE BY CAPSULE BY CAPSULE BY MOUTH TWICE MOUTH TWICE MOUTH A DAY A DAY TWICE A DAY lancets 33 lancets 33 No lancets 33 Village gauge USE gauge USE gauge USE Family DIRECTED DIRECTED P ractic 3 TIMES 3 TIMES DIRECTED 3 e DAILY DAILY TIMES DAILY magnesium magnesium No magnesium [facility] oxide 400 oxide 400 oxide 400 Family mg (241.3 mg (241.3 mg (241.3 Practic mg mg mg e magnesium) magnesium) magnesium) tablet TAKE tablet TAKE tablet 1 TABLET BY 1 TABLET BY TAKE 1 MOUTH TWICE MOUTH TWICE TABLET BY A DAY A DAY MOUTH TWICE A DAY metoprolol metoprolol No metoprolol [facility] succinate succinate succinate Family ER 25 mg ER 25 mg ER 25 mg Pra ctic tablet,exte tablet,exte tablet,ext e nded nded ended release 24 release 24 release 24 hr TAKE 1 hr TAKE 1 hr TAKE 1 TABLET BY TABLET BY TABLET BY MOUTH EVERY MOUTH EVERY MOUTH DAY DAY EVERY DAY OneTouch OneTouch No 3strip( Q1D OneTouch [facility] Verio test Verio test s) Verio test Family strips Take strips Take strips Practic 3 strips 3 strips Take 3 e every day every day strips by miscell. by miscell. every day route for route for by 30 days. 30 days. miscell. route for 30 days. pantoprazol pantoprazol No pantoprazo [facility] e 40 mg e 40 mg le 40 mg Famil y tablet,areli tablet,areli tablet,del Practic yed release yed release ayed e TAKE 1 TAKE 1 release TABLET BY TABLET BY TAKE 1 MOUTH EVERY MOUTH EVERY TABLET BY DAY. DAY. MOUTH EVERY DAY. Soliqua Soliqua No Soliqua [facility] 100/33 100 100/33 100 100/33 100 Family unit-33 unit-33 unit-33 Practi c mcg/mL mcg/mL mcg/mL e subcutaneou subcutaneou subcutaneo s insulin s insulin us insulin pen Give 36 pen Give 36 pen Give units in AM units in AM 36 units and and in AM and increase as increase as increase directed: directed: as TDD 60 TDD 60 directed: TDD 60 Xarelto 15 Xarelto 15 No Xarelto 15 Village mg tablet mg tablet mg tablet Family TAKE 1 TAKE 1 TAKE 1 Practic TABLET BY TABLET BY TABLET BY e MOUTH EVERY MOUTH EVERY MOUTH DAY WITH DAY WITH EVERY DAY EVENING EVENING WITH MEAL MEAL EVENING MEAL Immunizations Ordered Immunization Filled Immunization Date Status Commen ts Source Name Name COVID-19, mRNA, COVID-19, mRNA, 2022-08-04 Completed [facility] age Family LNP-S, bivalent LNP-S, bivalent 00:00:00 Prac el booster, PF, 30 booster, PF, 30 mcg/0.3 mL dose mcg/0.3 mL dose (Pfizer-BioNTech) - (Pfizer-BioNTech) - ML ML COVID-19, mRNA, COVID-19, mRNA, 2022-08-04 Completed [facility] age Family LNP-S, bivalent LNP-S, bivalent 00:00:00 Prac el booster, PF, 30 booster, PF, 30 mcg/0.3 mL dose mcg/0.3 mL dose (Pfizer-BioNTech) - (Pfizer-BioNTech) - ML ML COVID-19, mRNA, COVID-19, mRNA, 2021-01-31 Completed [facility] age Family LNP-S, PF, 30 LNP-S, PF, 30 00:00:00 Practice mcg/0.3 mL dose mcg/0.3 mL dose (Pfizer-BioNTech) - (Pfizer-BioNTech) - ML ML COVID-19, mRNA, COVID-19, mRNA, 2021-01-31 Completed [facility] age Family LNP-S, PF, 30 LNP-S, PF, 30 00:00:00 Practice mcg/0.3 mL dose mcg/0.3 mL dose (Pfizer-BioNTech) - (Pfizer-BioNTech) - ML ML COVID-19, mRNA, COVID-19, mRNA, 2021-01-10 Completed [facility] age Family LNP-S, PF, 30 LNP-S, PF, 30 00:00:00 Practice mcg/0.3 mL dose mcg/0.3 mL dose (Pfizer-BioNTech) - (Pfizer-BioNTech) - ML ML COVID-19, mRNA, COVID-19, mRNA, 2021-01-10 Completed Vill age Family LNP-S, PF, 30 LNP-S, PF, 30 00:00:00 Practice mcg/0.3 mL dose mcg/0.3 mL dose (Pfizer-BioNTech) - (Pfizer-BioNTech) - ML ML Vital Signs Vital Name Observation Time Observation Value Comments Source BP Diastolic 2022-10-16 00:00:00 77 mm[Hg] [facility] Family Practice Height 2022-10-16 00:00:00 71 [in_i] [facility] Family Practice BMI (Body Mass 2022-10-16 00:00:00 28.6 kg/m2 [facility] Index) Practice BP Systolic 2022-10-16 00:00:00 133 mm[Hg] [facility] Practice Body Weight 2022-10-16 00:00:00 205 [lb_av] [facility] Family Practice BP Diastolic 2022-10-02 00:00:00 74 mm[Hg] [facility] Family Practice Height 2022-10-02 00:00:00 71 [in_i] [facility] Family Practice BMI (Body Mass 2022-10-02 00:00:00 29.7 kg/m2 [facility] Index) Practice BP Systolic 2022-10-02 00:00:00 123 mm[Hg] [facility] Practice Body Weight 2022-10-02 00:00:00 213 [lb_av] [facility] Practice BP Diastolic 2022-07-03 00:00:00 68 mm[Hg] [facility] Practice Height 2022-07-03 00:00:00 71 [in_i] [facility] Practice BMI (Body Mass 2022-07-03 00:00:00 30 kg/m2 [facility] Index) Practice BP Systolic 2022-07-03 00:00:00 124 mm[Hg] [facility] Body Weight 2022-07-03 00:00:00 215 [lb_av] [facility] BP Diastolic 2022-04-22 00:00:00 63 mm[Hg] [facility] Height 2022-04-22 00:00:00 71 [in_i] [facility] BMI (Body Mass 2022-04-22 00:00:00 30.1 kg/m2 [facility] Index) Practice BP Systolic 2022-04-22 00:00:00 104 mm[Hg] [facility] Body Weight 2022-04-22 00:00:00 216 [lb_av] [facility] BP Diastolic 2022-03-20 00:00:00 66 mm[Hg] [facility] Height 2022-03-20 00:00:00 71 [in_i] [facility] BMI (Body Mass 2022-03-20 00:00:00 30.4 kg/m2 [facility] Index) Practice BP Systolic 2022-03-20 00:00:00 111 mm[Hg] [facility] Body Weight 2022-03-20 00:00:00 218 [lb_av] [facility] Procedures Procedure Date / Time Performed Performing Clinician Sourc e Colonoscopy 2020-04-02 00:00:00 [facility] Joanie ly Practice Insertion of Arterial 2014-04-02 00:00:00 [facility] Stent Practice Coronary Artery Bypass 2013-03-02 00:00:00 [facility] Family with Autogenous Graft, Practice Three Grafts Plan of Care Planned Activity Planned Date Details Comments Source Diagnostic Test 2022-10-16 glucose, [facility] Joanie ly Pending 00:00:00 fingerstick, blood Practice [code = glucose, fingerstick, blood] Future Appointment 2023-01-16 Anant Rafy, Amanda lu [facility] 10:15:[id number], [place] [address] Future Appointment 2023-01-13 Anant Rafy, Amanda Carty 00:00:[id number]; [address], [place] [address] Encounters Start End Encounter Admission Attending Care Care Encounter Source Date/Time Date/Time Type Type Clinicians Facility Department ID 2022-10-16 2022-10-16 Anant GALLAGHER [place] - [id number] [facility] 00:00:00 00:00:00 Leeanna [facility] Rain Hillman - Yovany valero MD: [id number] [place] - e Shadow _[address], [address], [place] [address] , Ph. 2022-10-06 2022-10-06 Outpatient Rafy_Amber GALLAGHER VFP [id number] [address] [place] [address] 00:00:00 00:00:00 [id number] Family Practic e 2022-10-02 2022-10-02 Anant VFP [place] - [id number] [facility] ill[facility] 00:00:00 00:00:00 [facility] Family HillmanRain - Pracnamrata valero MD: [id number] ID - Shadow SHANTEL_EUNICEMartínez_Jonny [facility], [facility] [address] [place] [address] , Ph. 2022-09-04 2022-09-04 Outpatient Daniel_T VFP VFP [id number] [address] [place] [address] 00:00:00 00:00:00 [id number] Family Practic e 2022-07-09 2022-07-09 Outpatient Daniel_T VFP VFP [id number] [address] [place] [address] 00:00:00 00:00:00 [id number] Family Practic e 2022-07-08 2022-07-08 Outpatient Daniel_T VFP VFP [id number] [address] [place] [address] 00:00:00 00:00:00 [id number] Family Practic e 2022-07-03 2022-07-03 Outpatient Daniel_T VFP VFP [id number] [address] [place] [address] 00:00:00 00:00:00 [id number] Family Practic e 2022-07-03 2022-07-03 Anant VFP [place] - [id number] V illage 00:00:00 00:00:00 [facility] Family HillmanRain - Yovany valero MD: [id number] SHANTEL_ALLISON_Jonny e Shadow [facility], [facility] [address] [place] [address] , Ph. 2022-06-13 2022-06-13 Outpatient Daniel_T VFP VFP [id number] [address] [place] [address] 00:00:00 00:00:00 [id number] Family Practic e 2022-05-28 2022-05-28 Outpatient Daniel_T VFP VFP [id number] [address] [place] [address] 00:00:00 00:00:00 [id number] Family Practic e 2022-05-09 2022-05-09 Outpatient Daniel_T VFP VFP [id number] [address] [place] [address] 02:30:00 02:30:00 [id number] Family Practic e 2022-04-22 2022-04-22 Outpatient Daniel_T VFP VFP [id number] [address] [place] [address] 12:24:00 12:24:00 [id number] Family Practic e 2022-04-22 2022-04-22 Anant VFP [place] - [id number] V illage 00:00:00 00:00:00 [facility] - Pracnamrata valero MD: [id number] RADHA_Jonny e [facility], [address], [place] [address] , Ph. 2022-04-17 2022-04-17 Outpatient Daniel_T VFP VFP [id number] [address] [place] [address] 06:18:00 06:18:00 [id number] Family Practic e 2022-04-17 2022-04-17 Outpatient Daniel_T VFP VFP [id number] [address] [place] [address] 06:02:00 06:02:00 [id number] Family Practic e 2022-04-04 2022-04-04 Outpatient Daniel_T VFP VFP [id number] [address] [place] [address] 05:21:00 05:21:00 [id number] Family Practic e 2022-03-20 2022-03-20 Outpatient Daniel_T VFP VFP [id number] [address] [place] [address] 01:04:00 01:04:00 [id number] Family Practic e 2022-03-20 2022-03-20 Anant VFP [place] - [id number] V illage 00:00:00 00:00:00 [facility] - Pracnamrata valero MD: [id number] SHANTEL_ALLISON_Jonny e [facility], [address] [address] , Ph. 2022-03-10 2022-03-10 Outpatient Daniel_T VFP VFP [id number] [address] [place] [address] 03:14:00 03:14:00 [id number] Family Practic e 2022-03-10 2022-03-10 Outpatient Daniel_T VFP VFP [id number] [address] [place] [address] 03:14:00 03:14:00 [id number] Family Practic e 2020-07-24 2020-07-24 Outpatient Rafy_T [facility] [id number] 04-21 [facility] 11:05:00 11:05:00 [id number] Family Practic e Results Test Description Test Time Test Comments Results Result Comments Source Glucose [Mass/volume] in Capillary blood 2022-10-16 10:08:06 Test Item Value Reference Range Interpretation Comme nts Blood Glucose: mg/dl (test code = Blood Glucose: mg/dl) 139 [facility] [id number] 16:04:01 Test Item Value Reference Range Interpretation Comments Hemoglobin A1c/Hemoglobin.total in 8.5 % 5.7-6.4 Blood (test code = 4548-4) [facility] [id number] 16:04:01 Test Item Value Reference Range Interpretation Comments Hemoglobin A1c/Hemoglobin.total in 8.5 % 5.7-6.4 Blood (test code = 4548-4) [facility] [Mass/volume] in Capillary [id number] 16:02:08 Test Item Value Reference Range Interpretation Comments Blood Glucose: mg/dl (test code = Blood 194 Glucose: mg/dl) [facility] [Mass/volume] in Capillary [id number] 16:02:08 Test Item Value Reference Range Interpretation Comments Blood Glucose: mg/dl (test code = Blood 194 Glucose: mg/dl) [facility] [id number] 15:12:29 Test Item Value Reference Range Interpretation Comments Hemoglobin A1c/Hemoglobin.total in 8.4 % 5.7-6.4 Blood (test code = 4548-4) [facility] [Mass/volume] in Capillary [id number] 15:12:17 Test Item Value Reference Range Interpretation Comments Blood Glucose: mg/dl (test code = Blood 285 Glucose: mg/dl) [facility] [Mass/volume] in Capillary [id number] 10:25:03 Test Item Value Reference Range Interpretation Comments Blood Glucose: mg/dl (test code = Blood 100 Glucose: mg/dl) [facility] [Mass/volume] in Capillary [id number] 10:32:05 Test Item Value Reference Range Interpretation Comments Blood Glucose: mg/dl (test code = Blood 235 Glucose: mg/dl) [facility] [id number] 10:31:53 Test Item Value Reference Range Interpretation Comments Hemoglobin A1C Fingerstick: (test code 7.2 = Hemoglobin A1C Fingerstick:) [facility]
[2022-10-21] MEDS ORDERED: FLUORESCEIN SODIUM 1 MG/WRAP ONE (10:43)
[2022-10-21] MEDS ORDERED: TETRACAINE HCL 0.5% 4ML OPTH ONE (10:43)
[2022-10-21 12:16] LABS: SARS-COV-2 RT PCR POSITIVE (NEGATIVE)
--- NOTE | 2022-10-21 12:31 | EDPHYS ---
Physician Documentation [facility] Name: Moe Carlson Age: 76 yrs Sex: Male : 1945 Arrival Date: 10/21/2022 Time: 10:24 Bed 12 Private MD: ED Physician Brad Cordova HPI: 10/21 10:43 This 76 yrs old Male presents to ER via Ambulatory with complaints of Cold kb Symptoms, shingles. 10:43 The patient or guardian reports cough, that is intermittent, described as mild, flu kb symptoms, myalgias. Onset: The symptoms/episode began/occurred 3 day(s) ago. Severity of symptoms: At their worst the symptoms were mild, moderate, in the emergency department the symptoms are unchanged. Modifying factors: The symptoms are alleviated by nothing, the symptoms are aggravated by nothing. Associated signs and symptoms: Pertinent positives: rhinorrhea, Pertinent negatives: chest pain, diarrhea, ear ache, fever, nausea, sore throat, vomiting. The patient has not experienced similar symptoms in the past. The patient has not recently seen a physician. 10:43 Pt reports cough and congestion for 3 days. Also reports rash to right side of nose, kb right cheek and right forehead that started 3 days ago with redness and watering of eye. Reports rash is painful.. Historical: - Allergies: 10:34 chocolate flavor; jl7 10:34 peach; jl7 10:34 tomato; jl7 - Home Meds: 10:34 Entresto 97-103 mg oral tab 2 times per day [Active]; metoprolol tartrate 50 mg oral jl7 tab once daily [Active]; aspirin 81 mg Oral chew [Active]; atorvastatin 20 mg oral tab 1 tab once daily [Active]; gabapentin 100 mg oral cap 1 cap bid [Active]; pantoprazole 40 mg oral TbEC once daily [Active]; furosemide 40 mg oral tab 1 tab 3 times per day [Active]; Xarelto 15 mg oral tab once daily [Active]; allopurinol 100 mg Oral tab 1 tab once daily [Active]; Farxiga 10 mg oral tab 1 tab once daily [Active]; Soliqua 100/33 100 unit-33 mcg/mL subcutaneous inpn once daily [Active]; - PMHx: 10:34 Diabetes - IDDM; Hyperlipidemia; Hypertension; jl7 - Immunization history:: Client reports receiving the 2nd dose of the Covid vaccine. - Social history:: Smoking status: Patient denies any tobacco usage or history of. ROS: 10:39 Constitutional: Negative for fever, chills, and weight loss. kb 10:39 Eyes: Positive for pain, redness. 10:39 ENT: Positive for rhinorrhea, sinus congestion. 10:39 Respiratory: Positive for cough, Negative for dyspnea on exertion, hemoptysis, orthopnea, pleurisy, shortness of breath, sputum production, wheezing. 10:39 Skin: Positive for rash, of the right eye, right cheek and right side of forehead. 10:39 All other systems are negative. Exam: 10:41 Constitutional: This is a well developed, well nourished patient who is awake, alert, kb and in no acute distress. Head/Face: Normocephalic, atraumatic. ENT: Moist Mucous membranes Cardiovascular: Regular rate and rhythm with a normal S1 and S2. No gallops, murmurs, or rubs. No pulse deficits. Respiratory: Respirations even and unlabored. No increased work of breathing. Talking in full sentences Abdomen/GI: Soft, non-tender. No distention MS/ Extremity: Pulses equal, no cyanosis. Neurovascular intact. Full, normal range of motion. Neuro: Awake and alert, GCS 15, oriented to person, place, time, and situation. Moves all extremities. Normal gait. Psych: Awake, alert, with orientation to person, place and time. Behavior, mood, and affect are within normal limits. 10:41 Eyes: Periorbital structures: appear normal, Pupils: equal, round, and reactive to light and accomodation, Extraocular movements: intact throughout, Conjunctiva: injected. 10:41 Skin: rash a mild rash is noted, consistent with zoster, on the right side of forehead and right cheek and right eye. Vital Signs: 10:30 BP 126 / 62; Pulse 71; Resp 17; Temp 98.8(TE); Pulse Ox 96% on R/A; Weight 92.99 kg; jl7 Height 5 ft. 11 in. (180.34 cm); Pain 5/10; 12:48 BP 119 / 58; Pulse 68; Resp 17; Pulse Ox 95% ; jl7 10:30 Body Mass Index 28.59 (92.99 kg, 180.34 cm) jl7 Visual Acuity: 11:17 Left Eye Visual acuity 20/20, ; Right Eye Visual acuity 20/30, ; Both Eyes Visual jl7 acuity 20/25; Without Lenses; Procedures: 13:45 Eye Exam: Tetracaine drops inserted into right eye and stained with fluorescein. No kb abnormalities. Dr Cordova evaluated eye as well. Pt to follow up with communication consultant. MDM: 10:38 Patient medically screened. kb 10:39 Data reviewed: vital signs, nurses notes. Data interpreted: Pulse oximetry: on room air kb is 96 %. Interpretation: normal. 13:46 Counseling: I had a detailed discussion with the patient and/or guardian regarding: the kb historical points, exam findings, and any diagnostic results supporting the discharge/admit diagnosis, lab results, the need for outpatient follow up, an opthalmologist, a family practitioner, to return to the emergency department if symptoms worsen or persist or if there are any questions or concerns that arise at home. 10/21 10:32 Order name: COVID-19/FLU A+B; Complete Time: 12:21 kb 10/21 10:32 Order name: Eye Tray; Complete Time: 10:45 kb 10/21 10:32 Order name: Fluoresene Opth strip; Complete Time: 10:45 kb 10/21 10:32 Order name: Visual Acuity; Complete Time: 11:17 kb Administered Medications: 11:30 Drug: Tetracaine Drops 0.5 % 1 drops {Note: administered by ERP.} Route: Ophthalmic; jl7 Site: right eye; 12:04 Follow up: Response: No adverse reaction jl7 Disposition: 11:25 Co-signature as Attending Physician, Brad Cordova DO I was immediately available onsite ms3 in the emergency department for consultation in the care of the patient. Disposition Summary: 10/21/22 12:30 Discharge Ordered Location: Home kb Condition: Stable kb Diagnosis - Zoster without complications kb - SARS-associated coronavirus as the cause of diseases classified elsewhere kb Followup: kb - With: Emergency Department - When: As needed - Reason: Worsening of condition Followup: kb - With: Private Physician - When: 2 - 3 days - Reason: Recheck today's complaints, Continuance of care, Re-evaluation by your physician Discharge Instructions: - Discharge Summary Sheet kb - Shingles, [id number] kb - COVID-19 kb - Viral Illness, Adult kb Forms: - Medication Reconciliation Form kb - Thank You Letter kb - Antibiotic Education kb - Prescription Opioid Use kb Prescriptions: - Valtrex 1 gram Oral tablet - take 1 tablet by ORAL route 3 times per day for 7 days; 21 tablet; Refills: 0, kb Product Selection Permitted Signatures: Dispatcher [employer] EDDolores Cochran, TRANSPORTATION OFFICER-C TRANSPORTATION OFFICERPradeep Craft, RN RN jl7 Brad Cordova DO DO ms3
--- NOTE | 2022-10-21 12:31 | ER ---
Nurse's Notes [facility] Name: Moe Carlson Age: 76 yrs Sex: Male : 1945 Arrival Date: 10/21/2022 Time: 10:24 Bed 12 Private MD: Diagnosis: Zoster without complications;SARS-associated coronavirus as the cause of diseases classified elsewhere Presentation: 10/21 10:30 Chief complaint: Patient states: Cough and congestion, redness and tearing to right eye jl7 and rash to right lateral aspect of nose x2-3 days, denies fever, denies aches. Coronavirus screen: At this time, the client does not indicate any symptoms associated with coronavirus-19. Ebola Screen: No symptoms or risks identified at this time. Initial Sepsis Screen: Does the patient meet any 2 criteria? No. Patient's initial sepsis screen is negative. Does the patient have a suspected source of infection? No. Patient's initial sepsis screen is negative. Risk Assessment: Do you want to hurt yourself or someone else? Patient reports no desire to harm self or others. Onset of symptoms was October 19, 2022. 10:30 Method Of Arrival: Ambulatory jl7 10:30 Acuity: DAVION 4 jl7 Triage Assessment: 10:34 General: Appears in no apparent distress. uncomfortable, Behavior is calm, cooperative, jl7 appropriate for age. Pain: Complains of pain in face Pain currently is 5 out of 10 on a pain scale. Historical: - Allergies: 10:34 chocolate flavor; jl7 10:34 peach; jl7 10:34 tomato; jl7 - Home Meds: 10:34 Entresto 97-103 mg oral tab 2 times per day [Active]; metoprolol tartrate 50 mg oral jl7 tab once daily [Active]; aspirin 81 mg Oral chew [Active]; atorvastatin 20 mg oral tab 1 tab once daily [Active]; gabapentin 100 mg oral cap 1 cap bid [Active]; pantoprazole 40 mg oral TbEC once daily [Active]; furosemide 40 mg oral tab 1 tab 3 times per day [Active]; Xarelto 15 mg oral tab once daily [Active]; allopurinol 100 mg Oral tab 1 tab once daily [Active]; Farxiga 10 mg oral tab 1 tab once daily [Active]; Soliqua 100/33 100 unit-33 mcg/mL subcutaneous inpn once daily [Active]; - PMHx: 10:34 Diabetes - IDDM; Hyperlipidemia; Hypertension; jl7 - Immunization history:: Client reports receiving the 2nd dose of the Covid vaccine. - Social history:: Smoking status: Patient denies any tobacco usage or history of. Screenin:48 [facility] ED Fall Risk Assessment (Adult) History of falling in the last 3 months, jl7 including since admission No falls in past 3 months (0 pts) Confusion or Disorientation No (0 pts) Intoxicated or Sedated No (0 pts) Impaired Gait No (0 pts) Mobility Assist Device Used No (0 pt) Altered Elimination No (0 pt) Score/Fall Risk Level 0 - 2 = Low Risk. Humpty Dumpty Scale Fall Assessment Tool (age< 18yrs) Gender Male (2 pts). Abuse screen: Denies threats or abuse. Denies injuries from another. Nutritional screening: No deficits noted. Tuberculosis screening: No symptoms or risk factors identified. Fall Risk No fall in past 12 months (0 pts). Total Bernstein Fall Scale indicates No Risk (0-24 pts). Assessment: 12:30 Reassessment: Patient appears in no apparent distress at this time. Patient and/or jl7 family updated on plan of care and expected duration. Pain level reassessed. Patient is alert, oriented x 3, equal unlabored respirations, skin warm/dry/pink. Patient states feeling better. Vital Signs: 10:30 BP 126 / 62; Pulse 71; Resp 17; Temp 98.8(TE); Pulse Ox 96% on R/A; Weight 92.99 kg; jl7 Height 5 ft. 11 in. (180.34 cm); Pain 5/10; 12:48 BP 119 / 58; Pulse 68; Resp 17; Pulse Ox 95% ; jl7 10:30 Body Mass Index 28.59 (92.99 kg, 180.34 cm) jl7 Visual Acuity: 11:17 Left Eye Visual acuity 20/20, ; Right Eye Visual acuity 20/30, ; Both Eyes Visual jl7 acuity 20/25; Without Lenses; ED Course: 10:24 Patient arrived in ED. as 10:24 Dolores Ceballos FNP-C is [facility]. kb 10:24 Cordova, Brad, DO is Attending Physician. kb 10:30 Arm band placed on right wrist. jl7 10:34 Triage completed. jl7 10:40 Pradeep Stern, RN is Primary Nurse. jl7 10:40 COVID swab sent to lab. Flu and/or RSV swab sent to lab. jl7 12:48 Patient has correct armband on for positive identification. jl7 12:48 No provider procedures requiring assistance completed. Patient did not have IV access jl7 during this emergency room visit. Administered Medications: 11:30 Drug: Tetracaine Drops 0.5 % 1 drops {Note: administered by ERP.} Route: Ophthalmic; jl7 Site: right eye; 12:04 Follow up: Response: No adverse reaction jl7 Medication: 12:48 VIS not applicable for this client. jl7 Outcome: 12:30 Discharge ordered by MD. kb 12:48 Discharged to home ambulatory. jl7 12:48 Condition: good 12:48 Discharge instructions given to patient, Instructed on discharge instructions, follow up and referral plans. medication usage, Demonstrated understanding of instructions, follow-up care, medications, Prescriptions given X 1. 12:49 Patient left the ED. jl7 Signatures: Dolores Ceballos, MATERIAL SPREADER-C MATERIAL SPREADER-Ckb Kate Painter as Pradeep Stern, RN RN jl7 Corrections: (The following items were deleted from the chart) 10:39 10:30 BP 126 / 62; Pulse 71bpm; Resp 97bpm; Pulse Ox 96% RA; Temp 98.8F Temporal; 92.99 jl7 kg; Height 5 ft. 11 in.; BMI: 28.5; Pain 5/10; jl7
[2022-10-21 12:54] VITALS: TEMP 98.8
[2022-10-21 12:55] VITALS: BP 119/58; O2SAT 95
== END 2022-10-21 12:49 | disposition home or self-care (01) ==
LOC: ER 10:22
DX: U07.1 COVID-19 (principal); B02.9 Zoster without complications; I10 Essential (primary) hypertension; E11.9 Type 2 diabetes mellitus without complications; Z91.018 Allergy to other foods; Z79.82 Long term (current) use of aspirin
CPT/HCPCS: 0240U; 99283

== ENCOUNTER 2025-01-12 11:58 | Inpatient (IN) | payer OTHER ==
--- OUTSIDE RECORDS SUMMARY | 2025-01-12 12:02 | XMS REPORT | Continuity of Care Document ---
Author Name Unknown Address [address] [place] [address] [address] [place] [address] [facility] [place] Address [address] [place] [address] [address] [place] [address] Care Team Providers Care Supervisor Rides Name Role Phone Barbra Attending Clinician Unavailable Barbra Admitting Clinician Unavailable Payers Payer Name Policy Type Policy Number Effective Date Expirati on Date Source [employer] (MEDICARE REPLACEMENT PPO) [id number] 2019 00:00:00 Problems Condition Name Condition Details Condition Category Status Onset Date Resolution Date Last Treatment Date Treating Clinician Comments Source 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 Problem Active 03-18 00:00: 00 [facility] Overweight Overweight Problem Active 06-22 00:00: 00 [facility] 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 Problem Active 2021-11 00:00: 00 [facility] Foot callus Foot Callus Problem Active 2021-11 00:00: 00 [facility] Secondary immune deficiency disorder Secondary Immune Deficiency Disorder Problem Active 2021-11 00:00: 00 [facility] Senile purpura Senile Purpura Problem Active 2021-11 00:00: 00 [facility] Chronic kidney disease stage 3 Chronic Kidney Disease Stage 3 Problem Active 2021-11 00:00: 00 [facility] Long-term current use of insulin Long-term Current Use of Insulin Problem Active 2021-11 00:00: 00 [facility] Type 2 diabetes mellitus Type 2 Diabetes Mellitus Problem Active - 00:00: 00 [facility] Old myocardial infarction Old Myocardial Infarction Problem Active 07-24 00:00: 00 [facility] Family history of Cardiovasc ular disease Family History of Cardiovasc ular Disease Problem Active 07-24 00:00: 00 [facility] Family history of diabetes mellitus Family History of Diabetes Mellitus Problem Active 07-24 00:00: 00 [facility] Multiple complicati ons due to type 2 diabetes mellitus Multiple Complicati ons Due to Type 2 Diabetes Mellitus Problem Active 02-28 00:00: 00 [facility] Hypoglycem ia Hypoglycem ia Problem Active 01-23 00:00: 00 [facility] Vitamin D deficiency Vitamin D Deficiency Problem Active 2018-11 00:00: 00 [facility] Hyperlipid emia Hyperlipid emia Problem Active 2018-11 00:00: 00 [facility] Obesity Obesity Problem Active 2018-11 00:00: 00 [facility] Essential hypertensi on Essential Hypertensi on Problem Active 2018-11 00:00: 00 [facility] Coronary arterioscl erosis Coronary Arterioscl erosis Problem Active 2018-11 00:00: 00 [facility] Heart failure Heart Failure Problem Active 2018-11 00:00: 00 [facility] Congestive heart failure Congestive Heart Failure Problem Active 2018-11 00:00: 00 [facility] Gastroesop hageal reflux disease without esophagiti s Gastroesop hageal Reflux Disease without Esophagiti s Problem Active 2018-11 00:00: 00 [facility] Weak arterial pulse Weak Arterial Pulse Problem Active 2018-11 00:00: 00 [facility] Clinical finding Clinical Finding Problem Active 2018-11 00:00: 00 [facility] Clinical finding Clinical Finding Problem Active 02-27 00:00: 00 [facility] Pneumonia Pneumonia Problem Active 2016-11 00:00: 00 [facility] Clinical finding Clinical Finding Problem Active 2016-11 00:00: 00 [facility] Hypertensi ve disorder Hypertensi ve Disorder Problem Active 2016-11 00:00: 00 [facility] Neuropathy due to type 2 diabetes mellitus Neuropathy Due to Type 2 Diabetes Mellitus Problem Active 2016-11 00:00: 00 [facility] Clinical finding Clinical Finding Problem Active 2016-11 00:00: 00 [facility] Family history of cardiac disorder Family History of Cardiac Disorder Problem Active 2016-11 00:00: 00 [facility] Disorder due to type 2 diabetes mellitus Disorder Due to Type 2 Diabetes Mellitus Problem Active [facility] Social History Smoking Status Start Date Stop Date Source Never Smoker [facility] Medications Ordered Medication Name Filled Medication Name Start Date Stop Date Current Medication? Ordering Clinician Indication Dosage Frequency Signature (SIG) Comments Components Source allopurinol 100 mg tablet TAKE 1 TABLET BY MOUTH EVERY DAY allopurinol 100 mg tablet TAKE 1 TABLET BY MOUTH EVERY DAY No allopurino l 100 mg tablet TAKE 1 TABLET BY MOUTH EVERY DAY [facility] atorvastati n 20 mg tablet TAKE 1 TABLET BY MOUTH DAILY IN THE EVENING WITH MEAL atorvastati n 20 mg tablet TAKE 1 TABLET BY MOUTH DAILY IN THE EVENING WITH MEAL No atorvastat in 20 mg tablet TAKE 1 TABLET BY MOUTH DAILY IN THE EVENING WITH MEAL [facility] BD Ultra-Fine Mini Pen Needle 31 gauge x 3/16" BD Ultra-Fine Mini Pen Needle 31 gauge x 3/16" No BD Ultra-Fine Mini Pen Needle 31 gauge x 3/16" [facility] colchicine 0.6 mg tablet Take 1 tablet every day by oral route. colchicine 0.6 mg tablet Take 1 tablet every day by oral route. No 1 Q1D colchicine 0.6 mg tablet Take 1 tablet every day by oral route. [facility] Entresto 24 mg-26 mg tablet TAKE 1 TABLET BY MOUTH TWICE DAILY Entresto 24 mg-26 mg tablet TAKE 1 TABLET BY MOUTH TWICE DAILY No 1 BID Entresto 24 mg-26 mg tablet TAKE 1 TABLET BY MOUTH TWICE DAILY [facility] Farxiga 10 mg tablet TAKE 1 TABLET BY MOUTH EVERY DAY FOR 30 DAYS Farxiga 10 mg tablet TAKE 1 TABLET BY MOUTH EVERY DAY FOR 30 DAYS No Farxiga 10 mg tablet TAKE 1 TABLET BY MOUTH EVERY DAY FOR 30 DAYS [facility] furosemide 40 mg tablet TAKE 2 TABLETS BY MOUTH IN MORNING AND 1 TABLET IN EVENING furosemide 40 mg tablet TAKE 2 TABLETS BY MOUTH IN MORNING AND 1 TABLET IN EVENING No furosemide 40 mg tablet TAKE 2 TABLETS BY MOUTH IN MORNING AND 1 TABLET IN EVENING [facility] gabapentin 100 mg capsule TAKE 1 CAPSULE BY MOUTH TWICE DAILY gabapentin 100 mg capsule TAKE 1 CAPSULE BY MOUTH TWICE DAILY No gabapentin 100 mg capsule TAKE 1 CAPSULE BY MOUTH TWICE DAILY [facility] lancets 33 gauge USE DIRECTED 3 TIMES DAILY lancets 33 gauge USE DIRECTED 3 TIMES DAILY No lancets 33 gauge USE DIRECTED 3 TIMES DAILY [facility] magnesium oxide 400 mg (241.3 mg magnesium) tablet TAKE 1 TABLET BY MOUTH TWICE DAILY magnesium oxide 400 mg (241.3 mg magnesium) tablet TAKE 1 TABLET BY MOUTH TWICE DAILY No magnesium oxide 400 mg (241.3 mg magnesium) tablet TAKE 1 TABLET BY MOUTH TWICE DAILY [facility] metoprolol succinate ER 25 mg tablet,exte nded release 24 hr TAKE 1 TABLET BY MOUTH EVERY DAY metoprolol succinate ER 25 mg tablet,exte nded release 24 hr TAKE 1 TABLET BY MOUTH EVERY DAY No metoprolol succinate ER 25 mg tablet,ext ended release 24 hr TAKE 1 TABLET BY MOUTH EVERY DAY [facility] OneTouch Verio test strips Take 3 strips every day by miscell. route for 30 days. OneTouch Verio test strips Take 3 strips every day by miscell. route for 30 days. No 3strip( s) Q1D OneTouch Verio test strips Take 3 strips every day by miscell. route for 30 days. [facility] pantoprazol e 40 mg tablet,areli yed release TAKE 1 TABLET BY MOUTH EVERY DAY pantoprazol e 40 mg tablet,areli yed release TAKE 1 TABLET BY MOUTH EVERY DAY No pantoprazo le 40 mg tablet,del ayed release TAKE 1 TABLET BY MOUTH EVERY DAY [facility] Soliqua 100/33 100 unit-33 mcg/mL subcutaneou s insulin pen GIVE 46 UNITS IN AM AND INCREASE DIRECTED: TDD 60 Soliqua 100/33 100 unit-33 mcg/mL subcutaneou s insulin pen GIVE 46 UNITS IN AM AND INCREASE DIRECTED: TDD 60 No Soliqua 100/33 100 unit-33 mcg/mL subcutaneo us insulin pen GIVE 46 UNITS IN AM AND INCREASE DIRECTED: TDD 60 [facility] Xarelto 15 mg tablet TAKE 1 TABLET BY MOUTH DAILY IN THE EVENING WITH MEAL Xarelto 15 mg tablet TAKE 1 TABLET BY MOUTH DAILY IN THE EVENING WITH MEAL No Xarelto 15 mg tablet TAKE 1 TABLET BY MOUTH DAILY IN THE EVENING WITH MEAL [facility] BD Ultra-Fine Belen Pen Needle 32 gauge x 5/32" USE DIRECTED TEST EVERY DAY BD Ultra-Fine Belen Pen Needle 32 gauge x 5/32" USE DIRECTED TEST EVERY DAY No BD Ultra-Fine Belen Pen Needle 32 gauge x 5/32" USE DIRECTED TEST EVERY DAY [facility] valacyclovi r 1 gram tablet TAKE 1 TABLET BY MOUTH 3 TIMES A DAY FOR 7 DAYS valacyclovi r 1 gram tablet TAKE 1 TABLET BY MOUTH 3 TIMES A DAY FOR 7 DAYS No valacyclov ir 1 gram tablet TAKE 1 TABLET BY MOUTH 3 TIMES A DAY FOR 7 DAYS [facility] potassium chloride ER 10 mEq capsule,ext ended release TAKE 1 CAPSULE BY MOUTH EVERY DAY potassium chloride ER 10 mEq capsule,ext ended release TAKE 1 CAPSULE BY MOUTH EVERY DAY No potassium chloride ER 10 mEq capsule,ex tended release TAKE 1 CAPSULE BY MOUTH EVERY DAY [facility] repaglinide 2 mg tablet TAKE 1 TABLET BY MOUTH THREE TIMES DAILY BEFORE MEALS repaglinide 2 mg tablet TAKE 1 TABLET BY MOUTH THREE TIMES DAILY BEFORE MEALS No 1 TID repaglinid e 2 mg tablet TAKE 1 TABLET BY MOUTH THREE TIMES DAILY BEFORE MEALS [facility] sodium,pota ssium,mag sulfates 17.5 gram-3.13 gram-1.6 gram oral soln TAKE 1 UNIT BY MOUTH DIRECTED USED DIRECTED BY YOUR COLONOSCOPY PACKET INSTRUCTION S sodium,pota ssium,mag sulfates 17.5 gram-3.13 gram-1.6 gram oral soln TAKE 1 UNIT BY MOUTH DIRECTED USED DIRECTED BY YOUR COLONOSCOPY PACKET INSTRUCTION S No sodium,pot assium,mag sulfates 17.5 gram-3.13 gram-1.6 gram oral soln TAKE 1 UNIT BY MOUTH DIRECTED USED DIRECTED BY YOUR COLONOSCOP Y PACKET INSTRUCTIO NS [facility] Mounjaro 2.5 mg/0.5 mL subcutaneou s pen injector INJECT 0.5ML UNDER THE SKIN ONCE A WEEK Mounjaro 2.5 mg/0.5 mL subcutaneou s pen injector INJECT 0.5ML UNDER THE SKIN ONCE A WEEK No Mounjaro 2.5 mg/0.5 mL subcutaneo us pen injector INJECT 0.5ML UNDER THE SKIN ONCE A WEEK [facility] Mounjaro 5 mg/0.5 mL subcutaneou s pen injector ADMINISTER 5 MG UNDER THE SKIN 1 TIME A WEEK Mounjaro 5 mg/0.5 mL subcutaneou s pen injector ADMINISTER 5 MG UNDER THE SKIN 1 TIME A WEEK No Mounjaro 5 mg/0.5 mL subcutaneo us pen injector ADMINISTER 5 MG UNDER THE SKIN 1 TIME A WEEK [facility] potassium chloride ER 10 mEq tablet,exte nded release(par t/cryst) TAKE 1 TABLET BY MOUTH EVERY DAY potassium chloride ER 10 mEq tablet,exte nded release(par t/cryst) TAKE 1 TABLET BY MOUTH EVERY DAY No potassium chloride ER 10 mEq tablet,ext ended release(pa rt/cryst) TAKE 1 TABLET BY MOUTH EVERY DAY [facility] potassium chloride ER 10 mEq tablet,exte nded release TAKE 1 TABLET BY MOUTH EVERY DAY potassium chloride ER 10 mEq tablet,exte nded release TAKE 1 TABLET BY MOUTH EVERY DAY No potassium chloride ER 10 mEq tablet,ext ended release TAKE 1 TABLET BY MOUTH EVERY DAY [facility] Immunizations Ordered Immunization Name Filled Immunization Name Date Status Comments Source COVID-19, mRNA, LNP-S, bivalent booster, PF, 30 mcg/0.3 mL dose (Pfizer-BioNTech) - ML COVID-19, mRNA, LNP-S, bivalent booster, PF, 30 mcg/0.3 mL dose (Pfizer-BioNTech) - ML Unknown Completed [facility] COVID-19, mRNA, LNP-S, PF, 30 mcg/0.3 mL dose (Pfizer-BioNTech) - ML COVID-19, mRNA, LNP-S, PF, 30 mcg/0.3 mL dose (Pfizer-BioNTech) - ML Unknown Completed [facility] Vital Signs Vital Name Observation Time Observation Value Comments S ource Body Weight 2024-12-27 00:00:00 197.8 [lb_av] V illage [facility] BP Systolic 2024-12-27 00:00:00 124 mm[Hg] Vill age [facility] Height 2024-12-27 00:00:00 71 [in_i] [facility] BP Diastolic 2024-12-27 00:00:00 69 mm[Hg] Sergei jennifer [facility] BMI (Body Mass Index) 2024-12-27 00:00:00 27.6 kg/m2 [facility] Height 2024-08-23 00:00:00 71 [in_i] [facility] Body Weight 2024-06-08 00:00:00 194.8 [lb_av] [facility] BP Systolic 2024-06-08 00:00:00 121 mm[Hg] [facility] Height 2024-06-08 00:00:00 71 [in_i] [facility] BMI (Body Mass Index) 2024-06-08 00:00:00 27.2 kg/m2 [facility] BP Diastolic 2024-06-08 00:00:00 69 mm[Hg] [facility] Body Weight 2024-03-10 00:00:00 200 [lb_av] [facility] BMI (Body Mass Index) 2024-03-10 00:00:00 27.9 kg/m2 [facility] BP Systolic 2024-03-10 00:00:00 99 mm[Hg] [facility] Height 2024-03-10 00:00:00 71 [in_i] [facility] BP Diastolic 2024-03-10 00:00:00 63 mm[Hg] [facility] Body Weight 2023-12-23 00:00:00 207 [lb_av] [facility] BMI (Body Mass Index) 2023-12-23 00:00:00 28.9 kg/m2 [facility] BP Diastolic 2023-12-23 00:00:00 70 mm[Hg] [facility] Height 2023-12-23 00:00:00 71 [in_i] [facility] BP Systolic 2023-12-23 00:00:00 122 mm[Hg] [facility] BMI (Body Mass Index) 2023-09-22 00:00:00 29 kg/m2 [facility] BP Systolic 2023-09-22 00:00:00 132 mm[Hg] [facility] BP Diastolic 2023-09-22 00:00:00 74 mm[Hg] [facility] Height 2023-09-22 00:00:00 71 [in_i] [facility] Body Weight 2023-09-22 00:00:00 207.6 [lb_av] [facility] Body Weight 2023-06-22 00:00:00 203.6 [lb_av] [facility] BP Diastolic 2023-06-22 00:00:00 71 mm[Hg] [facility] Height 2023-06-22 00:00:00 71 [in_i] [facility] BP Systolic 2023-06-22 00:00:00 127 mm[Hg] [facility] BMI (Body Mass Index) 2023-06-22 00:00:00 28.4 kg/m2 [facility] BP Diastolic 2023-03-20 00:00:00 74 mm[Hg] [facility] Height 2023-03-20 00:00:00 71 [in_i] [facility] BMI (Body Mass Index) 2023-03-20 00:00:00 28.6 kg/m2 [facility] BP Systolic 2023-03-20 00:00:00 120 mm[Hg] [facility] Body Weight 2023-03-20 00:00:00 205 [lb_av] [facility] BP Diastolic 2023-01-16 00:00:00 72 mm[Hg] [facility] Height 2023-01-16 00:00:00 71 [in_i] [facility] BMI (Body Mass Index) 2023-01-16 00:00:00 28.5 kg/m2 [facility] BP Systolic 2023-01-16 00:00:00 119 mm[Hg] [facility] Body Weight 2023-01-16 00:00:00 204 [lb_av] [facility] BP Diastolic 2022-10-16 00:00:00 77 mm[Hg] [facility] Height 2022-10-16 00:00:00 71 [in_i] [facility] BMI (Body Mass Index) 2022-10-16 00:00:00 28.6 kg/m2 [facility] BP Systolic 2022-10-16 00:00:00 133 mm[Hg] [facility] Body Weight 2022-10-16 00:00:00 205 [lb_av] [facility] BP Diastolic 2022-10-02 00:00:00 74 mm[Hg] [facility] Height 2022-10-02 00:00:00 71 [in_i] [facility] BMI (Body Mass Index) 2022-10-02 00:00:00 29.7 kg/m2 [facility] BP Systolic 2022-10-02 00:00:00 123 mm[Hg] [facility] Practice Body Weight 2022-10-02 00:00:00 213 [lb_av] [facility] BP Diastolic 2022-07-03 00:00:00 68 mm[Hg] [facility] Height 2022-07-03 00:00:00 71 [in_i] [facility] Practice BMI (Body Mass Index) 2022-07-03 00:00:00 30 kg/m2 [facility] Practice BP Systolic 2022-07-03 00:00:00 124 mm[Hg] [facility] Body Weight 2022-07-03 00:00:00 215 [lb_av] [facility] BP Diastolic 2022-04-22 00:00:00 63 mm[Hg] [facility] Height 2022-04-22 00:00:00 71 [in_i] [facility] BMI (Body Mass Index) 2022-04-22 00:00:00 30.1 kg/m2 [facility] Practice BP Systolic 2022-04-22 00:00:00 104 mm[Hg] [facility] Body Weight 2022-04-22 00:00:00 216 [lb_av] [facility] BP Diastolic 2022-03-20 00:00:00 66 mm[Hg] [facility] Height 2022-03-20 00:00:00 71 [in_i] [facility] BMI (Body Mass Index) 2022-03-20 00:00:00 30.4 kg/m2 [facility] BP Systolic 2022-03-20 00:00:00 111 mm[Hg] [facility] Body Weight 2022-03-20 00:00:00 218 [lb_av] [facility] Procedures Procedure Date / Time Performed Performing Clinicia n Source Colonoscopy 2020-04-02 00:00:00 [facility] Insertion of Arterial Stent 2014-04-02 00:00:00 [facility] Coronary Artery Bypass with Autogenous Graft, Three Grafts 2013-03-02 00:00:00 [facility] Encounters Start Date/Time End Date/Time Encounter Type Admission Type Attending [facility] Care Facility Care Department Encounter ID Source 2024-12-27 00:00:00 2024-12-27 00:00:00 Anant Hillman MD: [id number], [address] [address] , Ph. [facility] [place] - [facility] [id number] [facility] 2024-08-23 00:00:00 2024-08-23 00:00:00 Anant Hillman MD: [id number], [address] [address] , Ph. [facility] - [place] - [facility] [id number] [facility] 2024-06-08 00:00:00 2024-06-08 00:00:00 Anant Hillman MD: [id number], [address] [address] , Ph. [facility] - [place] - [facility] [id number] [facility] 2024-03-10 00:00:00 2024-03-10 00:00:00 Anant Hillman MD: [id number], [address] [address] , Ph. [facility] - [place] - [facility] [id number] [facility] e 2023-12-23 00:00:00 2023-12-23 00:00:00 Anant Hillman MD: [id number], [address], [place] [address] , Ph. [facility] - [place] - [facility] [id number] [facility] 2023-12-20 00:00:00 2023-12-20 00:00:00 Outpatient Daniel_T_HO U_MD VFP VFP [id number] [facility] 2023-12-08 00:00:00 2023-12-08 00:00:00 Outpatient Daniel_T_HO U_MD VFP VFP [id number] [facility] 2023-09-22 00:00:00 2023-09-22 00:00:00 Anant Hillman MD: [id number] [employer] [address], [address], [place] [address] , Ph. VFP [facility] - [place] - [facility] [id number] [facility] 2023-09-20 00:00:00 2023-09-20 00:00:00 Outpatient Daniel_T_HO U_MD VFP VFP [id number] [facility] 2023-09-20 00:00:00 2023-09-20 00:00:00 Outpatient Daniel_T_HO U_MD VFP VFP [id number] [facility] 2023-09-20 00:00:00 2023-09-20 00:00:00 Outpatient Daniel_T_HO U_MD VFP VFP [id number] [facility] 2023-06-22 00:00:00 2023-06-22 00:00:00 Outpatient Daniel_T_HO U_MD VFP VFP [id number] [facility] 2023-06-22 00:00:00 2023-06-22 00:00:00 Outpatient Daniel_T_HO U_MD VFP VFP [id number] [facility] 2023-06-22 00:00:00 2023-06-22 00:00:00 Anant Hillman MD: [id number], [address] [address] , Ph. VFP [facility] - [place] - [facility] [id number] [facility] 2023-06-19 00:00:00 2023-06-19 00:00:00 Outpatient Daniel_T_EUNICE PENN VFP VFP [id number] [facility] 2023-03-29 00:00:00 2023-03-29 00:00:00 Outpatient Daniel_T VFP VFP [id number] [facility] 2023-03-20 00:00:00 2023-03-20 00:00:00 Anant Hillman MD: [id number], [address], [place] [address] , Ph. VFP [facility] - [place] - [facility] [id number] [facility] 2023-03-18 00:00:00 2023-03-18 00:00:00 Outpatient Daniel_T VFP VFP [id number] [facility] 2023-03-18 00:00:00 2023-03-18 00:00:00 Outpatient Daniel_T VFP VFP [id number] [facility] 2023-01-28 00:00:00 2023-01-28 00:00:00 Outpatient Daniel_T VFP VFP [id number] [facility] 2023-01-16 00:00:00 2023-01-16 00:00:00 Outpatient Daniel_T VFP VFP [id number] [facility] 2023-01-16 00:00:00 2023-01-16 00:00:00 Outpatient Daniel_T VFP VFP [id number] [facility] 2023-01-16 00:00:00 2023-01-16 00:00:00 Anant Hillman MD: [id number], [address], [place] [address] , Ph. VFP [facility] [place] - [facility] [id number] [facility] 2023-01-13 00:00:00 2023-01-13 00:00:00 Outpatient Daniel_T VFP VFP [id number] [facility] 2023-01-13 00:00:00 2023-01-13 00:00:00 Outpatient Daniel_T VFP VFP [id number] [facility] 2022-10-16 00:00:00 2022-10-16 00:00:00 Anant Hillman MD: [id number], [address], [place] [address] , Ph. VFP [facility] [place] - [facility] [id number] [facility] 2022-10-06 00:00:00 2022-10-06 00:00:00 Outpatient Daniel_T VFP VFP [id number] [facility] 2022-10-02 00:00:00 2022-10-02 00:00:00 Anant Hillman MD: [id number], [address], [place] [address] , Ph. VFP [facility] - [place] - [facility] [id number] [facility] 2022-09-04 00:00:00 2022-09-04 00:00:00 Outpatient Daniel_T VFP VFP [id number] [facility] 2022-07-09 00:00:00 2022-07-09 00:00:00 Outpatient Daniel_T VFP VFP [id number] [facility] 2022-07-08 00:00:00 2022-07-08 00:00:00 Outpatient Daniel_T VFP VFP [id number] [facility] 2022-07-03 00:00:00 2022-07-03 00:00:00 Outpatient Daniel_T VFP VFP [id number] [facility] 2022-07-03 00:00:00 2022-07-03 00:00:00 Anant Hillman MD: [id number], [address], [place] [address] , Ph. VFP [place] - [facility] - [facility] [id number] [facility] 2022-06-13 00:00:00 2022-06-13 00:00:00 Outpatient Daniel_T VFP VFP [id number] [facility] 2022-05-28 00:00:00 2022-05-28 00:00:00 Outpatient Daniel_T VFP VFP [id number] [facility] 2022-05-09 02:30:00 2022-05-09 02:30:00 Outpatient Daniel_T VFP VFP [id number] [facility] [facility] 2022-04-22 12:24:00 2022-04-22 12:24:00 Outpatient Daniel_T VFP VFP [id number] [facility] 2022-04-22 00:00:00 2022-04-22 00:00:00 Anant Hillman MD: [id number], [address] [address] , Ph. VFP [place] - [facility] - VM_HOU_[place] [id number] [facility] 2022-04-17 06:18:00 2022-04-17 06:18:00 Outpatient Daniel_T VFP VFP [id number] [facility] 2022-04-17 06:02:00 2022-04-17 06:02:00 Outpatient Daniel_T VFP VFP [id number] [facility] 2022-04-04 05:21:00 2022-04-04 05:21:00 Outpatient Daniel_T VFP VFP [id number] [facility] 2022-03-20 01:04:00 2022-03-20 01:04:00 Outpatient Daniel_T VFP VFP [id number] [facility] 2022-03-20 00:00:00 2022-03-20 00:00:00 Anant Hillman MD: [id number], [address], [place] [address] , Ph. P [place] - [facility] - VM_HOU_[place] [id number] [facility] 2022-03-10 03:14:00 2022-03-10 03:14:00 Outpatient Daniel_T VFP VFP [id number] [facility] 2022-03-10 03:14:00 2022-03-10 03:14:00 Outpatient Daniel_T VFP VFP [id number] [facility] 2020-07-24 11:05:00 2020-07-24 11:05:00 Outpatient Daniel_T VFP VFP [id number] [facility] Results Test Description Test Time Test Comments Results Result Co mments Source [facility] [Mass/volume] in Capillary [id number] 13:38:37* Test Item Value Reference Range Interpretation Comme nts Blood Glucose: mg/dl (test c ode = Blood Glucose: mg/dl) 89 [facility] [id number] 11:17:14* Test Item Value Reference Range Interpretation Comme nts Hemoglobin A1c/Hemoglobin.to uli in Blood (test code = 4548-4) 8.7 % 4.0-6.4 [facility] [Mass/volume] in Capillary [id number] 11:16:02* Test Item Value Reference Range Interpretation Comme nts Blood Glucose: mg/dl (test c ode = Blood Glucose: mg/dl) 203 [facility]em[facility] A1c measurement device [id number] 09:11:34* Test Item Value Reference Range Interpretation Comme nts Hemoglobin A1c/Hemoglobin.to uli in Blood (test code = 4548-4) 7.5 % 4.0-6.4 [facility] [Mass/volume] in Capillary [id number] 09:08:46* Test Item Value Reference Range Interpretation Comme nts Blood Glucose: mg/dl (test c ode = Blood Glucose: mg/dl) 192 [facility]em[facility] A1c measurement device [id number] 10:29:58* Test Item Value Reference Range Interpretation Comme nts Hemoglobin A1c/Hemoglobin.to uli in Blood (test code = 4548-4) 9.0 % 4.0-6.4 [facility] [Mass/volume] in Capillary [id number] 10:21:44* Test Item Value Reference Range Interpretation Comme nts Blood Glucose: mg/dl (test c ode = Blood Glucose: mg/dl) 261 [facility] A1c measurement device [id number] 10:49:58* Test Item Value Reference Range Interpretation Comme nts Hemoglobin A1c/Hemoglobin.to uli in Blood (test code = 4548-4) 10.4 % 4.0-6.4 [facility] [Mass/volume] in Capillary [id number] 10:49:46* Test Item Value Reference Range Interpretation Comme nts Blood Glucose: mg/dl (test c ode = Blood Glucose: mg/dl) 222 [facility] [id number] 13:46:15* Test Item Value Reference Range Interpretation Comme nts Hemoglobin A1c/Hemoglobin.to uli in Blood (test code = 4548-4) 9.0 % 4.0-6.4 [facility] [Mass/volume] in Capillary [id number] 13:41:24* Test Item Value Reference Range Interpretation Comme nts Blood Glucose: mg/dl (test c ode = Blood Glucose: mg/dl) 154 [facility] A1c measurement device [id number] 10:45:50* Test Item Value Reference Range Interpretation Comme nts Hemoglobin A1c/Hemoglobin.to uli in Blood (test code = 4548-4) 9.8 % 4.0-6.4 [facility] [Mass/volume] in Capillary [id number] 10:38:56* Test Item Value Reference Range Interpretation Comme nts Blood Glucose: mg/dl (test c ode = Blood Glucose: mg/dl) 278 [facility] A1c measurement device [id number] 10:32:13* Test Item Value Reference Range Interpretation Comme nts Hemoglobin A1c/Hemoglobin.to uli in Blood (test code = 4548-4) 8.5 % 4.0-6.4 [facility] [Mass/volume] in Capillary [id number] 10:31:59* Test Item Value Reference Range Interpretation Comme nts Blood Glucose: mg/dl (test c ode = Blood Glucose: mg/dl) 203 [facility] [Mass/volume] in Capillary [id number] 10:08:06* Test Item Value Reference Range Interpretation Comme nts Blood Glucose: mg/dl (test c ode = Blood Glucose: mg/dl) 139 [facility]Hemoglobin A1c measurement device [id number] 16:04:01* Test Item Value Reference Range Interpretation Comme nts Hemoglobin A1c/Hemoglobin.to uli in Blood (test code = 4548-4) 8.5 % 5.7-6.4 [facility] [Mass/volume] in Capillary [id number] 16:02:08* Test Item Value Reference Range Interpretation Comme nts Blood Glucose: mg/dl (test c ode = Blood Glucose: mg/dl) 194 [facility] PracticeHemoglobin A1c measurement device [id number] 15:12:29* Test Item Value Reference Range Interpretation Comme nts Hemoglobin A1c/Hemoglobin.to uli in Blood (test code = 4548-4) 8.4 % 5.7-6.4 [facility] [Mass/volume] in Capillary [id number] 15:12:17* Test Item Value Reference Range Interpretation Comme nts Blood Glucose: mg/dl (test c ode = Blood Glucose: mg/dl) 285 [facility] [Mass/volume] in Capillary [id number] 10:25:03* Test Item Value Reference Range Interpretation Comme nts Blood Glucose: mg/dl (test c ode = Blood Glucose: mg/dl) 100 [facility] [Mass/volume] in Capillary [id number] 10:32:05* Test Item Value Reference Range Interpretation Comme nts Blood Glucose: mg/dl (test c ode = Blood Glucose: mg/dl) 235 [facility] PracticeHemoglobin A1c measurement device [id number] 10:31:53* Test Item Value Reference Range Interpretation Comme nts Hemoglobin A1C Fingerstick: (test code = Hemoglobin A1C Fingerstick:) 7.2 [facility]
--- NOTE | 2025-01-12 13:54 | RAD REPORT ---
EXAM: CT brain without contrast HISTORY: Syncope;Dizziness COMPARISON: 01/08/2020 TECHNIQUE: Multiple contiguous axial images were obtained and a CT of the brain without contrast. Sag ittal and coronal reformats were performed. One or more of the following dose reduction techniques were used: Automated exposure control, adjust ment of the mA and/or kV according to patient size, and/or iterative reconstruction. FINDINGS: No evidence of hydrocephalus, intracranial hemorrhage, or extra-axial fluid collection. The brain is normal in morphology. No evidence of midline shift or areas of brain edema. The calvarium is intact. The visualized paranasal sinuses and mastoid air cells are essentially clear . Vertebral atherosclerosis. IMPRESSION: No evidence of acute intracranial abnormality.
[2025-01-12 14:30] LABS: Absolute Eosinophils 0.1 K/uL (0-0.5); Absolute Lymphocytes (CBC) 1.1 K/uL (0.7-4.9); Absolute Monocytes 0.3 K/uL (0.1-1.3); Absolute Neutrophil 4.2 K/uL (1.8-8.0); Basophils % 0.3 % (0-1.3); Eosinophils % 1.4 % (0-4.4); Hematocrit 43.3 % (39.6-49.0); Hemoglobin 14.6 g/dL (13.6-17.9); Lymphocytes % 19.2 % (15.3-44.8); MCH 27.8 pg (27.0-35.0); MCHC 33.8 g/dL (32.0-36.0); MCV 82.3 fL (80-100); MPV 9.7 fL (7.6-11.3); Monocytes % 5.7 % (3.3-12.3); Neutrophils % 73.4 % (41.7-73.7); Platelets 132 thou/uL (152-406); RBC Red Blood Cell Count 5.26 M/uL (4.33-5.43); Red Cell Distribution Width 16.3 % (12.1-15.2)
--- NOTE | 2025-01-12 14:45 | RAD REPORT ---
EXAMINATION: ONE VIEW CHEST XR CLINICAL INDICATION: MALAISE TECHNIQUE: Frontal chest projection is submitted. Examination is limited by patient positioning and t echnique. COMPARISON: 11/21/2021 FINDINGS: Mild interstitial pulmonary edema. The heart is moderately enlarged. No displaced fractures identifie d. Sternotomy wires. IMPRESSION: Mild CHF versus volume overload.
[2025-01-12 14:46] LABS: PT Prothrombin Time 21.3 SECONDS (10-13.0); PTT, Activated Partial Thromb 50.4 SECONDS (27.2-37.4); Protime INR 1.93
[2025-01-12 14:54] LABS: Albumin 3.8 g/dL (3.4-5.0); Albumin/Globulin Ratio 0.9 (1.1-1.8); Anion Gap 5.7 mEq/L (5.0-15.0); Bilirubin Total 0.9 mg/dL (0.2-1.0); Globulin 4.2 g/dL (2.3-3.5); Magnesium 2.3 mg/dL (1.6-2.4); Potassium 3.7 mEq/L (3.5-5.1)
[2025-01-12 14:57] LABS: Troponin High Sensitivity 266.5 pg/mL (<58.9)
[2025-01-12 14:58] LABS: Influenza A Ag Negative; Influenza B Ag Negative; SARS-CoV-2 Antigen Rapid Res Negative (Negative)
--- NOTE | 2025-01-12 15:14 | ER ---
Nurse's Notes [facility] Name: Moe Carlson Age: 79 yrs Sex: Male : 1945 Arrival Date: 01/12/2025 Time: 11:58 Bed 8 Private MD: Diagnosis: Acute on chronic combined systolic (congestive) and diastolic (congestive) heart failure Presentation: 01/12 12:42 Chief complaint: Patient states: Sudden onset of dizziness, nausea, near syncope at 11 ll1 AM today while doing yard work. Coronavirus screen: Client denies travel out of the [place] in the last 14 days. At this time, the client does not indicate any symptoms associated with coronavirus-19. Ebola Screen: Patient denies travel to an Ebola-affected area in the 21 days before illness onset. Initial Sepsis Screen: Does the patient meet any 2 criteria? No. Patient's initial sepsis screen is negative. Does the patient have a suspected source of infection? No. Patient's initial sepsis screen is negative. Risk Assessment: Do you want to hurt yourself or someone else? Patient reports no desire to harm self or others. Onset of symptoms was January 12, 2025. 12:42 Method Of Arrival: Ambulatory ll1 12:42 Acuity: DAVION 2 ll1 Triage Assessment: 12:45 General: Appears in no apparent distress. Behavior is calm, cooperative, appropriate bp for age. Pain: Complains of pain in back. EENT: No deficits noted. Neuro: Level of Consciousness is awake, alert, obeys commands, Oriented to Appropriate for age Reports dizziness. Cardiovascular: No deficits noted. Respiratory: No deficits noted. GI: No signs and/or symptoms were reported involving the gastrointestinal system. : No signs and/or symptoms were reported regarding the genitourinary system. Derm: No deficits noted. Musculoskeletal: No deficits noted. Historical: - Allergies: 12:42 chocolate flavor; ll1 12:42 peach; ll1 12:42 tomato; ll1 - PMHx: 12:42 Diabetes - IDDM; Hyperlipidemia; Hypertension; ll1 - Immunization history:: Adult Immunizations up to date. - Infectious Disease History:: Denies. - Social history:: Smoking status: Patient denies any tobacco usage or history of. Screenin:42 [facility] ED Fall Risk Assessment (Adult) History of falling in the last 3 months, bp including since admission No falls in past 3 months (0 pts) Confusion or Disorientation No (0 pts) Intoxicated or Sedated No (0 pts) Impaired Gait No (0 pts) Mobility Assist Device Used No (0 pt) Altered Elimination No (0 pt) Score/Fall Risk Level 0 - 2 = Low Risk Oriented to surroundings. Abuse screen: Denies threats or abuse. Denies injuries from another. Nutritional screening: No deficits noted. Tuberculosis screening: No symptoms or risk factors identified. Assessment: 12:45 General: Appears in no apparent distress. Behavior is cooperative, appropriate for age, bp anxious. 15:41 Reassessment: REPORT FAXED TO 4TH FLOOR. bp Vital Signs: 12:42 BP 131 / 66; Pulse 64; Resp 17; Temp 97.4; Pulse Ox 99% on R/A; Weight 89.36 kg; Height ll1 5 ft. 10 in. ; Pain 0/10; 15:41 BP 120 / 73; Pulse 59; Resp 16; Pulse Ox 100% ; bp 12:42 Body Mass Index 28.27 (89.36 kg, 177.8 cm) ll1 12:42 Pain Scale: Adult ll1 NIH Stroke Scale Scores: 13:16 NIHSS Score: 0 dr5 ED Course: 12:01 Patient arrived in ED. mr 12:07 Charles Conner MD is Attending Physician. ec2 12:37 Arm band placed on. ll1 12:43 Triage completed. ll1 12:58 Narayan Gutiérrez FNP-C [facility]. [facility]5 13:05 Chong Haines, LEO is Primary Nurse. bp 13:25 CT Head Brain wo Cont In Process Unspecified. EDMS 14:32 Stroke CXR 1 View In Process Unspecified. EDMS 14:40 Inserted saline lock: 20 gauge in right antecubital area, using aseptic technique. am7 Blood collected. Flushed with 10 mL NS. 15:13 Zunilda Thayer MD is Hospitalizing Provider. dr5 15:42 Patient has correct armband on for positive identification. bp 15:42 No provider procedures requiring assistance completed. Patient admitted, IV remains in bp place. Administered Medications: 16:32 Drug: Aspirin PO 81 mg PO once Route: PO; bp 16:32 Drug: Furosemide IVP 40 mg IVP once; give over 2 minutes Route: IVP; Site: right bp antecubital; Medication: 15:43 VIS not applicable for this client. bp Outcome: 15:13 Decision to Hospitalize by Provider. dr5 15:42 Admitted to Tele accompanied by tech, via wheelchair, bp 15:42 Condition: stable 15:42 Instructed on the need for admit, 17:08 Patient left the ED. bp NIH Stroke Scale - NIH Stroke Score Date: 01/12/2025 Time: 13:16 Total Score = 0 10. Dysarthria (speech clarity - read or repeat words) - 0(Normal) 11. Extinction and Inattention (visual/tactile/auditory/spatial/personal) - 0(No abnormality) 1a. Level of Consciousness (LOC) - 0(Alert) 1b. Level of Consciousness (LOC) (Month \T\ Age) - 0(Both) 1c. LOC Commands (Open \T\ Closes Eyes/Rim Fire Priming Tool Setter) - 0(Both) 2. Best Gaze (Lateral Gaze Paresis) - 0(Normal) 3. Visual Field Loss - 0(No visual loss) 4. Facial Palsy - 0(Normal) 5a. Left Arm: Motor (10-second hold) - 0(No drift) 5b. Right Arm: Motor (10-second hold) - 0(No drift) 6a. Left Leg: Motor (5-second hold - always test supine) - 0(No drift) 6b. Right Leg: Motor (5-second hold - always test supine) - 0(No drift) 7. Limb Ataxia (finger/nose \T\ heel/ledesma - test with eyes open) - 0(Absent) 8. Sensory Loss (pinprick arms/legs/face) - 0(Normal) 9. Best Language: Aphasia (description/naming/reading) - 0(No aphasia) Initials: dr5 Signatures: Dispatcher [employer] EDNH [place], Reg Reg mr Chong Haines, LEO RN Brendan Batres RN RN ll1 Charles Conner MD MD ec2 Narayan Gutiérrez, CHILD MONITOR-C CHILD MONITOR-[facility]5 Keysha Cohen am7
--- NOTE | 2025-01-12 15:15 | EDPHYS ---
Physician Documentation [facility] Name: Moe Carlson Age: 79 yrs Sex: Male : 1945 Arrival Date: 01/12/2025 Time: 11:58 Bed 8 Private MD: ED Physician Charles Conner HPI: 01/12 13:12 This 79 yrs old Male presents to ER via Ambulatory with complaints of Fall dr5 Injury, Dizziness, Nausea. 13:12 Details of fall: The patient fell and struck bed. Onset: The symptoms/episode dr5 began/occurred at 11:00. Patient is a 79-year-old male with history of hypertension, diabetes, hyperlipidemia, CHF, previous OH with bypass approximately 10 years ago. Patient reports that he bent over to pick something up, felt lightheaded and dizzy, lost his footing and fell onto his bed. Patient denies loss of consciousness. Patient does take Xarelto. Patient states that he felt weak and dizzy at the time. Patient then went into the living room to rest and symptoms did not completely resolved. Patient is a patient of Dr. Thayer and saw him last month. Patient currently does not have dizziness on initial exam and denies any headache or pain at this time.. Historical: - Allergies: 12:42 chocolate flavor; ll1 12:42 peach; ll1 12:42 tomato; ll1 - PMHx: 12:42 Diabetes - IDDM; Hyperlipidemia; Hypertension; ll1 - Immunization history:: Adult Immunizations up to date. - Infectious Disease History:: Denies. - Social history:: Smoking status: Patient denies any tobacco usage or history of. ROS: 13:16 Constitutional: as per hpi dr5 Exam: 13:16 Constitutional: This is a well developed, well nourished patient who is awake, alert, dr5 and in no acute distress. Head/Face: Normocephalic, atraumatic. ENT: Nares patent. No nasal discharge, no septal abnormalities noted. Tympanic membranes are normal and external auditory canals are clear. Oropharynx with no redness, swelling, or masses, exudates, or evidence of obstruction, uvula midline. Mucous membranes moist. Neck: Trachea midline, no thyromegaly or masses palpated, and no cervical lymphadenopathy. Supple, full range of motion without nuchal rigidity, or vertebral point tenderness. No Meningismus. Chest/axilla: Normal chest wall appearance and motion. Nontender with no deformity. No lesions are appreciated. Cardiovascular: Regular rate and rhythm with a normal S1 and S2. Normal PMI, no JVD. No pulse deficits. Respiratory: Lungs have equal breath sounds bilaterally, clear to auscultation. No rales, rhonchi or wheezes noted. No increased work of breathing, no retractions or nasal flaring. Abdomen/GI: Soft, non-tender, non-distended Skin: Warm, dry with normal turgor. Normal color with no rashes, no lesions, and no evidence of cellulitis. No signs of trauma / abrasions / contusions to face. 13:16 Neuro: Orientation: is normal, to person, place, time \T\ situation. Mentation: is normal, Memory: is normal, Cranial nerves: CN II- XII are normal as tested, extraocular movements are intact, Facial palsy and sensory deficits are absent. no gross hearing deficit,. Nystagmus is absent. Speech is clear and appropriate. Tongue strength is normal, Cerebellar function: normal finger to nose testing, heel to ledesma testing is normal, able to perform alternating rapid hand movements, Motor: is normal, Sensation: is normal, Gait: needs assistance, Deep tendon reflexes are Vital Signs: 12:42 BP 131 / 66; Pulse 64; Resp 17; Temp 97.4; Pulse Ox 99% on R/A; Weight 89.36 kg; Height ll1 5 ft. 10 in. ; Pain 0/10; 15:41 BP 120 / 73; Pulse 59; Resp 16; Pulse Ox 100% ; bp 12:42 Body Mass Index 28.27 (89.36 kg, 177.8 cm) ll1 12:42 Pain Scale: Adult ll1 NIH Stroke Scale Scores: 13:16 NIHSS Score: 0 dr5 MDM: 12:45 Medical Screening Exam initiated ec2 15:29 ED course: Spoke with Dr. Thayer who accepted patient. Patient did take 81mg of ASA this dr5 morning and took his Xarelto yesterday evening as prescribed. BNP elevated likely causing troponin to be elevated. Will give another dose of 81mg ASA, give 40mg of Lasix, and admit patient. . 15:30 Differential diagnosis: abrasion, MARCOS, NSTEMI, STEMI, CHF Exacerbation, ICH. Data dr5 reviewed: vital signs, nurses notes. Consideration of Admission/Observation Patient was admitted/placed on observation. Management of patient was discussed with the following: Primary Care Provider: Dr. Zunilda Thayer. Care significantly affected by the following chronic conditions: Diabetes, Hypertension, Congestive Heart Failure. Care significantly affected by the following Social Determinants of Health: Poor access to healthcare and/or lack of insurance, Poor access to transportation, Problems related to employment. Counseling: I had a detailed discussion with the patient and/or guardian regarding the historical points, exam findings, and any diagnostic results supporting the discharge/admit diagnosis, the presence of at least one elevated blood pressure reading (>120/80) during this emergency department visit, lab results, radiology results, the need for further work-up and treatment in the hospital. 01/12 13:11 Order name: CBC with Diff; Complete Time: 17:02 [facility] 01/12 13:11 Order name: High Sensitivity Troponin; Complete Time: 14:58 [facility] 01/12 13:11 Order name: Magnesium; Complete Time: 14:58 [facility] 01/12 13:11 Order name: Protime (+inr); Complete Time: 14:46 [facility] 01/12 13:11 Order name: Ptt, Activated; Complete Time: 14:46 [facility] 01/12 13:12 Order name: CMP; Complete Time: 14:58 [facility] 01/12 13:12 Order name: COVID-19 Ag + Flu A+B Ag; Complete Time: 14:58 [facility] 01/12 14:59 Order name: NT PRO-BNP; Complete Time: 15:22 [facility] 01/12 16:57 Order name: CBC Smear Scan; Complete Time: 17:02 [facility] 01/12 13:11 Order name: Stroke CXR 1 View; Complete Time: 14:46 [facility] 01/12 13:16 Order name: CT Head Brain wo Cont; Complete Time: 13:58 [facility] 01/12 15:22 Order name: CONS Physician Consult [facility] 01/12 13:12 Order name: Cardiac monitoring; Complete Time: 14:37 [facility] 01/12 13:12 Order name: EKG - Nurse/Tech; Complete Time: 14:10 [facility] 01/12 13:12 Order name: IV Saline Lock; Complete Time: 14:40 [facility] 01/12 13:12 Order name: Labs collected and sent; Complete Time: 14:40 [facility] 01/12 13:12 Order name: NPO; Complete Time: 14:10 [facility] 01/12 13:12 Order name: O2 Per Protocol; Complete Time: 14:10 [facility] 01/12 13:12 Order name: O2 Sat Monitoring; Complete Time: 14:10 [facility] 01/12 13:12 Order name: Stroke Swallow Screen; Complete Time: 14:10 dr5 EC:58 Rate is 65 beats/min. Rhythm is regular. QRS [place] is Normal. HI interval is normal at dr5 188 msec. QRS interval is normal at 106 msec. QT interval is normal at 440 msec. Administered Medications: 16:32 Drug: Aspirin PO 81 mg PO once Route: PO; bp 16:32 Drug: Furosemide IVP 40 mg IVP once; give over 2 minutes Route: IVP; Site: right bp antecubital; Disposition Summary: 01/12/25 15:13 Hospitalization Ordered Notes: Hospitalization Status: Observation dr5 Provider: Zunilda Thayer Location: Telemetry/MedSurg (observation) dr5 Condition: Stable dr5 Problem: chronic dr5 Symptoms: are unchanged dr5 Bed/Room Type: Standard [facility] Room Assignment: [facility](01/12/25 16:02) bc6 Diagnosis - Acute on chronic combined systolic (congestive) and diastolic (congestive) heart dr5 failure Forms: - Medication Reconciliation Form dr5 - SBAR form dr5 - Leadership Thank You Letter dr5 NIH Stroke Scale - NIH Stroke Score Date: 01/12/2025 Time: 13:16 Total Score = 0 10. Dysarthria (speech clarity - read or repeat words) - 0(Normal) 11. Extinction and Inattention (visual/tactile/auditory/spatial/personal) - 0(No abnormality) 1a. Level of Consciousness (LOC) - 0(Alert) 1b. Level of Consciousness (LOC) (Month \T\ Age) - 0(Both) 1c. LOC Commands (Open \T\ Closes Eyes/Cnc Grinder) - 0(Both) 2. Best Gaze (Lateral Gaze Paresis) - 0(Normal) 3. Visual Field Loss - 0(No visual loss) 4. Facial Palsy - 0(Normal) 5a. Left Arm: Motor (10-second hold) - 0(No drift) 5b. Right Arm: Motor (10-second hold) - 0(No drift) 6a. Left Leg: Motor (5-second hold - always test supine) - 0(No drift) 6b. Right Leg: Motor (5-second hold - always test supine) - 0(No drift) 7. Limb Ataxia (finger/nose \T\ heel/ledesma - test with eyes open) - 0(Absent) 8. Sensory Loss (pinprick arms/legs/face) - 0(Normal) 9. Best Language: Aphasia (description/naming/reading) - 0(No aphasia) Initials: dr5 Addendum: 01/13/2025 21:48 I was immediately available for consultation during this patient's visit. I did ec2 not personally see the patient or discuss the patient with the SOP[facility]. . Signatures: Dispatcher [employer] EDChong Dye RN RN bp Brendan Do RN RN ll1 Marlin Elizabeth6 Charles Conner MD MD ec2 Narayan Gutiérrez, PAPER PRODUCTS INSPECTOR-C PAPER PRODUCTS INSPECTOR-Cdr5 Corrections: (The following items were deleted from the chart) 01/12 13:12 13:12 CBC+H.LAB.BRZ ordered. EDMS EDMS 13:12 13:12 Troponin High Sensitivity+C.LAB.BRZ ordered. EDMS EDMS 13:12 13:12 MAGNESIUM+C.LAB.BRZ ordered. EDMS EDMS 13:12 13:12 PROTIME (+INR)+COAG.LAB.BRZ ordered. EDMS EDMS 13:12 13:12 PTT, ACTIVATED+COAG.LAB.BRZ ordered. EDMS EDMS 13:12 13:12 COMPREHENSIVE METABOLIC PANEL+C.LAB.BRZ ordered. EDMS EDMS 13:12 13:12 COVID-19 Ag + Flu A+B Ag+I.LAB.BRZ ordered. EDMS EDMS 13:12 13:12 CT-STROKE BRAIN W/O CONTRAST+CT.RAD.BRZ ordered. EDMS EDMS 13:12 13:12 Chest Single View+RAD.RAD.BRZ ordered. EDMS EDMS 13:17 13:12 Patient is a 79-year-old male with history of hypertension, diabetes, dr5 hyperlipidemia, CHF, previous OH with bypass approximately 10 years ago. Patient reports that he bent over to pick something up, felt lightheaded and dizzy, lost his footing and fell onto his bed. Patient denies loss of consciousness. Patient does take Xarelto. Patient states that he felt weak and dizzy at the time. Patient then went into the living room to rest and symptoms did not completely resolved. Patient is a patient of Dr. Thayer yes or no. Weakness dizziness when he bends over to a. dr5 13:18 13:17 Chest Single View+RAD.RAD.BRZ ordered. EDMS EDMS 15:26 15:13 dr5 bc6 15:30 15:29 ED course: Spoke with Dr. Thayer who accepted patient. Patient did take dr5 81mg of ASA this morning and took his Xarelto yesterday evening as prescribed.. dr5 15:32 15:26 225 bc6 bc6 16:02 15:32 410 bc6 bc6
[2025-01-12] MEDS ORDERED: FUROSEMIDE 40 MG/4 ML VIAL ONE (16:18)
[2025-01-12] MEDS ORDERED: ASPIRIN EC 81 MG TAB PO ONE (16:18)
[2025-01-12 16:56] LABS: Blood Morphology Comment NOT SEEN (NOT SEEN); Platelet Estimate ADEQ; White Blood Cell Scan OK (OK)
[2025-01-12 17:13] VITALS: O2SAT 100
[2025-01-12] MEDS: FLU (Fluarix Triv) TS24-25(6MOS UP)/PF 45 MCG/0.5 ML Syringe IM ONE (18:31)
[2025-01-12] MEDS: ENOXAPARIN 100 MG/ML SYR SQ ONE (18:32)
[2025-01-12] MEDS: PNEUMOCOCCAL VACCINE 0.5 ML IMVAC ONE (18:33)
[2025-01-12 18:35] VITALS: BMI 28.3
--- NOTE | 2025-01-12 20:16 | HP ---
Date of Admission: 01/12/2025 Chief Complaint: Nausea, dizziness, chest pain. History Of Present Illness: This is a 79-year-old pleasant male patient, who was doing fine, was doi ng some physical work at home today and all of a sudden he started to have nausea and dizziness feeli ng and fell over in his bed, but did not pass out. He felt like he had shortness of breath and sweat ing and he called my office. He was instructed to come to emergency room which he did and after he c ruddy to emergency room, he had left-sided chest pain while he was in the emergency room and said it la sted for about 10 minutes. He described his pain as heaviness, tightness type of feeling, and pain d id not radiate anywhere. After he was evaluated with all these complaints, I was contacted trudy penny admission to the hospital and I saw him this evening and he was symptom-free at that time. The pat ient denies any paroxysmal nocturnal dyspnea or orthopnea. No leg swelling. Allergies: NO KNOWN ALLERGIES. Medications: Allopurinol 100 mg daily, aspirin 81 mg daily, atorvastatin 20 mg daily, vitamin D3 100 0 units daily, colchicine 0.6 mg 2 times a day as needed for gout, Farxiga 10 mg daily, furosemide 40 mg daily in morning, gabapentin 100 mg 2 times a day, Soliqua insulin daily as prescribed by his end ocrinologist, magnesium oxide 400 mg 2 times a day, metoprolol 25 mg daily, pantoprazole 40 mg daily, potassium chloride 10 mEq daily, repaglinide 2 mg daily, Xarelto 15 mg daily, last dose was yesterda y evening, and Entresto 24/26 mg 2 times a day. Review of Systems: Cardiovascular: As mentioned above. Respiratory: As mentioned above. GI: As mentioned above. All other systems reviewed and negative. Past Medical History: Significant for hypertension, type 2 diabetes mellitus with chronic kidney dis ease, chronic systolic heart failure, mixed hyperlipidemia, paroxysmal atrial fibrillation, coronary artery disease, gout, anemia due to chronic kidney disease, benign prostatic hypertrophy, chronic kid layton disease stage IIIA. Past Surgical History: Significant for cataract surgery, coronary artery angioplasty with stent plac ement in 2014 and coronary artery bypass surgery in 2011, cholecystectomy in 2017. Family History: Father had myocardial infarction and hypertension. Mother had hypertension. Brothe r, diabetes. Social History: Prior history of smoking, not at present time. Use of alcohol, negative. Physical Examination: Vital Signs: Temperature 97.5, pulse 64, respiratory rate 16, blood pressure 138/63, oxygen saturati on 98% on room air. Height 5 feet 10 inches, weight 197 pounds. General: Awake, alert, oriented, not in distress. HEENT: Head atraumatic, normocephalic. Conjunctivae nonerythematous. Sclerae white. Mouth, no thr ush or edema noted. Ears/Nose, no mass, lesion, discharge noted. Neck: Supple. No JVD, lymph nodes, bruit, thyromegaly noted. Lungs: Bilateral good equal air entry with presence of rales noted in both lung bases. Not using ac cessory muscles of respiration. Heart: Normal heart sounds, no murmur or gallop. Abdomen: Soft, bowel sounds normal. No guarding, rigidity, tenderness, mass, hepatosplenomegaly, dis tention, or bruit noted. Extremities: No leg edema. No calf tenderness. Skin: No rash, ulcer, cellulitis. Lymphatics: No lymph node enlargement in neck, supraclavicular, infraclavicular region. Neuro: No focal neurological deficit. Chest: Unremarkable. External Genitalia: Deferred. Rectal: Deferred. Laboratory Data: WBC 5.7, hemoglobin 14.6, platelets 132. Sodium 137, potassium 3.7, chloride 102, bicarb 33, BUN 16, creatinine 1.31, glucose 86. Liver function tests unremarkable. ProBNP 1567 and troponin 266.5. EKG, no acute ST-T changes. Chest x-ray shows some changes of congestive heart fail ure. CAT scan of the head was negative for any acute intracranial changes. Impression: 1. Myocardial infarction. 2. Coronary artery disease. 3. Chronic systolic heart failure, with acute exacerbation. 4. Hypertension. 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 6. Mixed hyperlipidemia. 7. Paroxysmal atrial fibrillation. 8. Chronic anticoagulation therapy. 9. Gout. 10. Chronic kidney disease stage IIIA. 11. Benign prostatic hypertrophy. Plan: We will go ahead and admit the patient to hospital for further evaluation and management of th is problem. The patient is appropriate for inpatient and is expected to spend 2 midnights in [facility]. For myocardial infarction, we will go ahead and get serial cardiac enzymes. The patient takes as pirin at home and 1 dose of aspirin was given in the emergency room and I was contacted and the patie nt took last dose of Xarelto yesterday evening, so I have ordered 90 mg of Lovenox subcutaneous injec tion x1 dose this evening when I saw him. Consult Cardiology. We will keep him n.p.o. after midnigh t and get serial cardiac enzymes. Possible cardiac cath procedure to be done tomorrow and I have dis cussed these details with the patient today. For diabetes, we will manage that with sliding scale in sulin and no need for further intervention at this time on diabetes. For hypertension, continue his blood pressure medication. Monitor blood pressure. If necessary, adjust blood pressure medication. For hyperlipidemia, continue statin therapy per order. No need for further intervention. For gout, he takes allopurinol. We will continue that and will not require any further intervention. Details and plan of treatment discussed with the patient. Total time spent today was 80 minutes including review of last office visit record from November 30, review of emergency room visit record, communication with ER physician, performing today's evalu ation and management as well as communication with supervisor machining. RACHANA/BRII Voice ID: [id number]
[2025-01-12] MEDS: SACUBITRIL/VALSARTAN 24/26 MG TAB PO SCH (23:18)
[2025-01-13] MEDS: PANTOPRAZOLE 40MG TABLET PO SCH (06:34)
[2025-01-13] MEDS: MAGNESIUM OXIDE 400 MG TAB PO SCH (09:05)
[2025-01-13] MEDS: ENOXAPARIN 80 MG/0.8 ML SQ SCH (09:05)
[2025-01-13] MEDS: ASPIRIN EC 81 MG TAB PO SCH (09:05)
[2025-01-13] MEDS: FUROSEMIDE 40 MG TABLET PO SCH (09:05)
[2025-01-13] MEDS: METOPROLOL XL 25 MG TAB PO SCH (09:06)
[2025-01-13] MEDS: allopurinoL 100 MG TAB PO SCH (09:06)
[2025-01-13 10:57] LABS: Specific Gravity 1.023 (1.005-1.030); Sqamous Epithelial None Seen /HPF (None Seen); Urine Bacteria None Seen /HPF (<20); Urine Bilirubin NEGATIVE (Negative); Urine Blood Negative (Negative); Urine Clarity Clear (Clear); Urine Color Light-Yellow (Yellow); Urine Crystals Unidentified Few /HPF (None Seen); Urine Culture Reflex Order NOT NEEDED; Urine Glucose 4+ (Over) (Negative); Urine Ketones NEGATIVE (Negative); Urine Microscopic Reflex YN ORDER UMIC; Urine Nitrite NEGATIVE (Negative); Urine Protein 1+ (Negative); Urine RBC <5 /HPF (None Seen); Urine Urobilinogen Normal (Normal); Urine WBC <5 /HPF (<5); Urine pH 5.5 (5.0-7.0)
--- NOTE | 2025-01-13 13:47 | P.CNS ---
Date of Consult: 01/13/25 Chief Complaint: NSTEMI History of Present Illness: Patient with PMH of CAD, CABG, HTN, DD, AF, presented with dizzy spell, abdominal pain, fall, report also started having chest pressure sensation in ER, denies any other cardiac symptoms, chest pressure resolved upon interview. Allergies chocolate flavor Adverse Reaction (Verified 11/17/16 14:35) Anaphylaxis peach Adverse Reaction (Verified 11/17/16 14:35) Anaphylaxis tomato Adverse Reaction (Verified 11/17/16 14:35) Anaphylaxis Home medications list reviewed: Yes Home Medications: Aspirin 81 mg PO BID 05/21/15 Atorvastatin Calcium [Lipitor*] 20 mg PO DAILY AFTER SUPPER 05/21/15 Gabapentin [Neurontin*] 100 mg PO BID 05/21/15 Metoprolol Tartrate [Lopressor*] 50 mg PO DAILY 05/21/15 Magnesium Oxide [Magnesium] 400 mg PO BID 09/30/17 Furosemide 40 mg PO TID 02/16/18 Pantoprazole [Protonix Tab*] 1 tab PO DAILY 12/27/18 Rivaroxaban [Xarelto*] 1 tab PO DAILY 12/27/18 Allopurinol 100 mg PO DAILY 11/22/21 Colchicine 0.6 mg PO BID 11/22/21 Dapagliflozin Propanediol [Farxiga] 10 mg PO DAILY 01/12/25 Insulin Glargine/Lixisenatide [Soliqua 100 Unit-33 Mcg/ml Pen] 3 ml SQ DAILY 01/12/25 Potassium Chloride 10 meq SQ DAILY 01/12/25 Repaglinide 2 mg SQ AC 01/12/25 Sacubitril/Valsartan [Entresto 97 mg-103 mg Tablet] 1 each PO DAILY 01/13/25 - Past Medical/Surgical History Diabetic: Yes -: high blood pressure -: high cholesterol -: IDDM -: triple bypass -: left knee suurgery -: right cataract surgery -: lap agnes 11-18-16 - Social History Alcohol use: No CD- Drugs: No Caffeine use: Yes Review of Systems 10-point ROS is otherwise unremarkable Physical Examination Temp Pulse Resp BP Pulse Ox 97.6 F 71 16 109/56 L 94 01/13/25 12:00 01/13/25 12:00 01/13/25 12:00 01/13/25 12:00 01/13/25 12:00 General: Alert, In no apparent distress HEENT: Atraumatic, PERRLA, Mucous membr. moist/pink, EOMI, Sclerae nonicteric Neck: Supple, 2+ carotid pulse no bruit, No LAD, Without JVD or thyroid abnormality Respiratory: Clear to auscultation bilaterally, Normal air movement Cardiovascular: Regular rate/rhythm, Normal S1 S2 Gastrointestinal: Normal bowel sounds, No tenderness Musculoskeletal: No tenderness Integumentary: No rashes Neurological: Normal gait, Normal speech, Normal tone, Normal affect Lymphatics: No axilla or inguinal lymphadenopathy Laboratory Data (last 24 hrs) 01/12/25 01/12/25 01/12/25 14:20 14:20 14:20 WBC 5.70 Hgb 14.6 Hct 43.3 Plt Count 132 L PT 21.3 H INR 1.93 APTT 50.4 H Sodium 137 Potassium 3.7 BUN 16 Creatinine 1.31 H Glucose 86 Magnesium 2.3 Total Bilirubin 0.9 AST 12 L ALT 24 Alkaline Phosphatase 135 H - Problems (1) Chronic combined systolic (congestive) and diastolic (congestive) heart failure Current Visit: Yes Status: Acute Plan: Patient looks Euvolemic on exam. continue Toprol XL 250 mg daily continue Entresto 24 mg po BID Continue lasix 40 mg daily consider adding Farxiga 10 mg daily (2) Atrial fibrillation Current Visit: Yes Status: Acute Plan: currently in sinus rhythm continue Toprol XL and Xarelto (3) NSTEMI (non-ST elevated myocardial infarction) Current Visit: Yes Status: Acute Plan: patient with known complex CAD, occluded LAD/LCX and RCA with patent TIDWELL-D and SVG-OM on angiogram few years ago, most recent office stress test shown infarction with no reversible ischemia, troponin down trended with no significant delta and chest pain improved. continue ASA 81 mg daily continue Lipitor outpatient follow up with cardiology for further work up.
[2025-01-13 16:44] VITALS: BP 104/59; TEMP 98
[2025-01-13] MEDS ORDERED: ATORVASTATIN 80 MG TAB PO SCH (21:00)
--- NOTE | 2025-01-13 22:46 | DS ---
Date of Discharge: 01/13/2025 Disposition: Discharged to go home. Physical Examination: HEENT: Unremarkable. Lungs: Clear to auscultation. Heart: Sounds normal. Abdomen: Soft. Bowel sounds normal. No guarding, rigidity, tenderness, distention. Extremities: No leg edema. Laboratory Data: Upon admission, sodium 137, potassium 3.7, chloride 102, bicarb 33, BUN 16, creatin ine 1.31, glucose 86. Liver function tests unremarkable. ProBNP 1567. Initial troponin 266.5, seco nd troponin 235.5, and third troponin 211. Lipid profile from today, triglycerides 94, total cholest chapo 75, LDL 26, HDL 30. Discharge Medications And Instructions: 1. Continue all prior home medication. 2. Follow up at my office next week. 3. Follow up with composition roll maker and cutter Dr. Luna next week to schedule outpatient cardiac cath procedure. Hospital Course: This is a 79-year-old male patient, who came into emergency room with complaints of nausea, dizziness, and chest pain, and after he was evaluated, he was admitted to the hospital. Aft er the patient was evaluated in the emergency room, he was admitted and he has not had any recurrence of chest pain after his admission. His initial troponin level was elevated and second and third tro ponin level has shown improvement compared to the initial troponin level and the patient has remained asymptomatic and no recurrence of chest pain since his admission to hospital. No recurrence of naus ea or dizziness complaints either. The patient tolerating diet very well and Cardiology consultation was requested from Dr. Luna and I did communicate with him last night as well as this morning and Dr. Luna will evaluate the patient today and after he evaluated the patient, he will communicate wi th me again and our plan will be to discharge the patient to go home to do outpatient angiogram as ou r cardiac label remover is not functional today. Originally, my plan was to send him home with higher dos e of statin, but after looking at the lipid profile, we will not need to go up on the dose of statin anymore. Final Diagnoses: 1. Non-STEMI. 2. Coronary artery disease. 3. Chronic systolic heart failure, with acute exacerbation. 4. Hypertension. 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 6. Hyperlipidemia. 7. Paroxysmal atrial fibrillation. 8. Chronic anticoagulation therapy. 9. Gout. 10. Chronic kidney disease, stage IIIA. 11. Benign prostatic hypertrophy without lower urinary tract symptoms. Discharge Medications And Instructions: 1. Continue all prior home medications. 2. Follow up at my office next week and follow up with composition roll maker and cutter Dr. Luna next week. Total time spent 40 minutes. RACHANA/MODL Voice ID: [id number] Report ID: [id number]
--- NOTE | 2025-01-18 12:56 | EKG ---
Test Date: 2025-01-12 Test Time: 13:58:47 Artist Color Separation: BP MEASUREMENT RESULTS: Intervals: Rate: 65 CT: 188 QRSD: 106 QT: 440 QTc: 457 Noble: P: 45 CT: 188 QRS: 143 T: -27 INTERPRETIVE STATEMENTS: Normal sinus rhythm Lateral infarct, age undetermined T wave abnormality, consider inferior ischemia Abnormal ECG Compared to ECG 01/08/2020 14:55:49 T-wave abnormality now present ST (T wave) deviation no longer present Myocardial infarct finding still present Possible ischemia still present Electronically Signed On 01-18-25 12:36:16 CDT by Shahriar Luna
== END 2025-01-13 18:34 | disposition home or self-care (01) | DRG 280 ==
LOC: ER 11:58 → ERHOLD 15:14 → 2ND 16:45 → OBSVTOIN 17:54
PROVIDERS: ADMIT Internal Medicine; ATTEND Internal Medicine
DX: I13.0 Hypertensive heart and chronic kidney disease with heart failure and stage 1 through stage 4 chronic kidney disease, or unspecified chronic kidney disease (principal); I50.23 Acute on chronic systolic (congestive) heart failure; I21.4 Non-ST elevation (NSTEMI) myocardial infarction; N18.31 Chronic kidney disease, stage 3a; E11.22 Type 2 diabetes mellitus with diabetic chronic kidney disease; I48.0 Paroxysmal atrial fibrillation; M10.9 Gout, unspecified; E78.2 Mixed hyperlipidemia; N40.0 Benign prostatic hyperplasia without lower urinary tract symptoms; I25.2 Old myocardial infarction; I25.10 Atherosclerotic heart disease of native coronary artery without angina pectoris; Z79.4 Long term (current) use of insulin; Z95.5 Presence of coronary angioplasty implant and graft; Z79.82 Long term (current) use of aspirin; Z11.52 Encounter for screening for COVID-19; Z59.71 Insufficient health insurance coverage; Z79.01 Long term (current) use of anticoagulants; Z90.49 Acquired absence of other specified parts of digestive tract; Z91.018 Allergy to other foods; Z79.899 Other long term (current) drug therapy
CPT/HCPCS: 36415; 70450; 71045; 80053; 80061; 81001; 82947; 83735; 83880; 84484; 85025; 85610; 85730; 87428; 90656; 90732; 93005; 96374; 99285; G0378; J1650; J1940